=== PATIENT | female | born 1980 | race Two or more races ===

== ENCOUNTER → 2019-12-14 12:48 | Outpatient (BNVA) | payer MEDICAID, SELFPAY | PROVIDERS: PCP Internal Medicine Geriatric Medicine; Referring Provider Internal Medicine Geriatric Medicine; Visit Provider Physician Assistant | DX: E66.9 Obesity, unspecified (principal); Z68.33 Body mass index [BMI] 33.0-33.9, adult; Z98.84 Bariatric surgery status | CPT/HCPCS: 99213; Q3014 ==

== ENCOUNTER → 2020-01-25 13:40 | Outpatient (BNVA) | payer MEDICAID, SELFPAY | PROVIDERS: Visit Provider Physician Assistant | DX: Z76.89 Persons encountering health services in other specified circumstances (principal) ==

== ENCOUNTER → 2020-02-16 08:27 | Outpatient (BNVA) | payer MEDICAID, SELFPAY | PROVIDERS: PCP Internal Medicine Geriatric Medicine; Visit Provider Physician Assistant | DX: Z76.89 Persons encountering health services in other specified circumstances (principal) ==

== ENCOUNTER 2020-04-02 12:50 | Outpatient (REF) | payer MEDICAID, SELFPAY ==
--- NOTE | 2020-04-02 12:56 | XR_ITS ---
EXAMINATION: XR CERVICAL SPINE CLINICAL INFORMATION: Neck pain COMPARISON: None TECHNIQUE: 5 views of the cervical spine were obtained. FINDINGS: Bone alignment is normal. No fracture or dislocation is seen. Disc spaces are normal. Neural foramen are patent. Prevertebral soft tissues are normal. XR/XR cervical spine 4V IMPRESSION: Unremarkable examination.
--- NOTE | 2020-04-02 13:44 | MR_ITS ---
EXAMINATION: MR LUMBAR SPINE WITHOUT AND WITH CONTRAST CLINICAL INFORMATION: Low back pain and sciatica. Prior surgery. COMPARISON: MRI dated 08/31/2017. TECHNIQUE: MRI of the lumbar spine was obtained using routine sequences with and without contrast. Intravenous contrast: Gadavist 8.5 mL FINDINGS: VERTEBRAL BODIES AND PARASPINAL STRUCTURES: There is a mild rightward curvature of the lumbar spine. There are no compression fractures. The patient is status post previous posterior lumbar interbody fusion with hardware instrumentation at the L5-S1 level. Reduced intradiscal signal again evident at the L4-L5 level with a small posterior annular fissure. The paraspinal soft tissues are unremarkable. Bilateral renal cysts again visible. There are moderate degenerative changes of the sacroiliac joints. CONUS MEDULLARIS AND CAUDA EQUINA: Normal, terminating at the level of T12-L1. No lower cord signal abnormality is seen. The cauda equina nerve roots are normal. There is no pathologic intradural enhancement. SPINAL LEVELS: L1-L2, L2-L3, and L3-L4: Well-hydrated normal appearance of the discs without central canal stenosis or foraminal narrowing. L4-L5: Mild disc degeneration and shallow central disc protrusion with an underlying annular fissure. Hypertrophic facet arthropathy without central canal stenosis or foraminal narrowing. L5-S1: Post fusion changes with hardware instrumentation. No central canal stenosis. Stable moderate right foraminal narrowing. MR/MR lumbar spine wo/w con IMPRESSION: Stable imaging findings, status post posterior lumbar interbody fusion with hardware instrumentation at the L5-S1 level with moderate right foraminal narrowing. No new abnormal enhancement. Mild spondylosis at L4-L5 with a shallow central disc protrusion and underlying annular fissure. Moderate degenerative changes of the sacroiliac joints bilaterally, worse on the right side.
== END 2020-04-02 12:51 | disposition home or self-care (01) ==
LOC: HO.MRI 12:50
PROVIDERS: PCP Internal Medicine Geriatric Medicine; Visit Provider Internal Medicine Geriatric Medicine
DX: G89.29 Other chronic pain (principal); M54.16 Radiculopathy, lumbar region; M54.5 Low back pain; Z98.890 Other specified postprocedural states
CPT/HCPCS: 72050; 72158

== ENCOUNTER 2020-05-17 12:58 | Outpatient (REF) | payer MEDICAID, SELFPAY ==
--- NOTE | ~2020-05-17 | US_ITS ---
EXAMINATION: US PELVIS ULTRASOUND CLINICAL INFORMATION: Dysmenorrhea, excessive and frequent menstruation. COMPARISON: Pelvic ultrasound 04/08/2016. TECHNIQUE: Ultrasound of the pelvis is performed using both transabdominal and transvaginal transducers along with Doppler. Transvaginal imaging is performed due to inadequate visualization transabdominally. FINDINGS: Uterus: The uterus is anteverted and measures 12.5 x 4.7 x 6.0 cm. Volume 185 mL. The double wall endometrial thickness is normal at 6 mm. No fluid in uterine cavity. The uterus is smooth in contour. There is subtle heterogeneous and coarsened myometrial echogenicity posterior fundus and body with some scattered posterior shadowing. The area of involvement measures 4.9 x 3.7 x 4.8 cm. The margins are ill-defined and this could represent adenomyosis rather than fibroid. There are some small nabothian cysts in the cervix. Adnexa: Both ovaries are visualized. There is normal color flow to the adnexa. There is no ovarian torsion. There is no pelvic ascites or fluid collection. Right ovary measures 4.5 x 2.3 x 3.2 cm. Left ovary measures 3.1 x 1.9 x 2.5 cm. US/US pelvic complete IMPRESSION: 1. Uterus: Posterior intramural fundal body fibroid versus focal adenomyosis 4.9 x 3.7 x 4.8 cm. Normal endometrial thickness. 2. Adnexa: No adnexal mass or ascites.
--- NOTE | ~2020-05-17 | US_ITS ---
EXAMINATION: US PELVIS ULTRASOUND CLINICAL INFORMATION: Dysmenorrhea, excessive and frequent menstruation. COMPARISON: Pelvic ultrasound 04/08/2016. TECHNIQUE: Ultrasound of the pelvis is performed using both transabdominal and transvaginal transducers along with Doppler. Transvaginal imaging is performed due to inadequate visualization transabdominally. FINDINGS: Uterus: The uterus is anteverted and measures 12.5 x 4.7 x 6.0 cm. Volume 185 mL. The double wall endometrial thickness is normal at 6 mm. No fluid in uterine cavity. The uterus is smooth in contour. There is subtle heterogeneous and coarsened myometrial echogenicity posterior fundus and body with some scattered posterior shadowing. The area of involvement measures 4.9 x 3.7 x 4.8 cm. The margins are ill-defined and this could represent adenomyosis rather than fibroid. There are some small nabothian cysts in the cervix. Adnexa: Both ovaries are visualized. There is normal color flow to the adnexa. There is no ovarian torsion. There is no pelvic ascites or fluid collection. Right ovary measures 4.5 x 2.3 x 3.2 cm. Left ovary measures 3.1 x 1.9 x 2.5 cm. US/US transvaginal IMPRESSION: 1. Uterus: Posterior intramural fundal body fibroid versus focal adenomyosis 4.9 x 3.7 x 4.8 cm. Normal endometrial thickness. 2. Adnexa: No adnexal mass or ascites.
== END 2020-05-17 12:59 | disposition home or self-care (01) ==
LOC: HO.US 12:58
PROVIDERS: Visit Provider Advanced Practice Midwife
DX: N92.0 Excessive and frequent menstruation with regular cycle (principal); N94.6 Dysmenorrhea, unspecified
CPT/HCPCS: 76830; 76856

== ENCOUNTER 2021-09-02 12:07 | Outpatient (REF) | payer MEDICAID, SELFPAY ==
--- NOTE | ~2021-09-02 | XR_ITS ---
EXAMINATION: XR LUMBOSACRAL SPINE CLINICAL INFORMATION: Low back pain COMPARISON: Previous lumbar spine MRI most recent March 2020 TECHNIQUE: 3 views of the lumbar spine FINDINGS: There is curvature of the lumbar sacral spine to the left. There are postsurgical changes with posterior fusion hardware and disc interspace at L5-S1. Orthopedic hardware appears intact. There is question of a bone loss of the posterior inferior L5 vertebral body and mild anterior subluxation of L5 with respect to S1. This appears increased from previous MRI. Bone alignment is otherwise normal. Disc spaces are otherwise normal. Paraspinal soft tissues are normal. XR/XR lumbar spine 2-3V IMPRESSION: Postsurgical changes at L5-S1. Question increasing bone loss of the posterior inferior L5 vertebral body and mild anterior subluxation of L5 with respect to S1. Possible infection at the L5-S1 level should be considered. Follow-up MRI of the lumbar spine with contrast is recommended. Findings will be communicated by the [place] work flow party plan sales director.
== END 2021-09-02 12:08 | disposition home or self-care (01) ==
LOC: HO.XRAY 12:07
PROVIDERS: PCP Internal Medicine Geriatric Medicine; Visit Provider Internal Medicine Geriatric Medicine
DX: M54.41 Lumbago with sciatica, right side (principal); G89.29 Other chronic pain; Z98.1 Arthrodesis status
CPT/HCPCS: 72100

== ENCOUNTER 2021-09-17 10:52 | Outpatient (REF) | payer MEDICAID, SELFPAY | END 2021-09-17 10:53 | disposition home or self-care (01) | LOC: HO.MDS 10:52 | PROVIDERS: Visit Provider Internal Medicine Medical Oncology | DX: D50.9 Iron deficiency anemia, unspecified (principal) | CPT/HCPCS: 96365; J2916 ==

== ENCOUNTER 2021-09-24 11:51 | Outpatient (REF) | payer MEDICAID, SELFPAY | END 2021-09-24 11:52 | disposition home or self-care (01) | LOC: HO.MDS 11:51 | PROVIDERS: Visit Provider Internal Medicine Medical Oncology | DX: D50.9 Iron deficiency anemia, unspecified (principal) | CPT/HCPCS: 96365; J2916 ==

== ENCOUNTER → 2021-09-30 13:52 | Outpatient (BNVA) | payer MEDICAID, SELFPAY | PROVIDERS: PCP Internal Medicine Geriatric Medicine; Visit Provider Anesthesiology | DX: M96.1 Postlaminectomy syndrome, not elsewhere classified (principal); M51.36 Other intervertebral disc degeneration, lumbar region; M54.17 Radiculopathy, lumbosacral region | CPT/HCPCS: 99202 ==

== ENCOUNTER 2021-10-04 11:58 | Outpatient (REF) | payer MEDICAID, SELFPAY | END 2021-10-04 11:59 | disposition home or self-care (01) | LOC: HO.MDS 11:58 | PROVIDERS: Visit Provider Internal Medicine Medical Oncology | DX: D50.9 Iron deficiency anemia, unspecified (principal) | CPT/HCPCS: 96365; J2916 ==

== ENCOUNTER 2021-10-07 11:21 | Outpatient (REF) | payer MEDICAID, SELFPAY | END 2021-10-07 11:22 | disposition home or self-care (01) | LOC: HO.MDS 11:21 | PROVIDERS: Visit Provider Internal Medicine Medical Oncology | DX: D50.9 Iron deficiency anemia, unspecified (principal) | CPT/HCPCS: 96365; J2916 ==

== ENCOUNTER 2021-10-16 11:24 | Outpatient (REF) | payer MEDICAID, SELFPAY | END 2021-10-16 11:25 | disposition home or self-care (01) | LOC: HO.MDS 11:24 | PROVIDERS: Visit Provider Internal Medicine Medical Oncology | DX: D50.9 Iron deficiency anemia, unspecified (principal) | CPT/HCPCS: 96365; J2916 ==

== ENCOUNTER 2021-10-17 12:36 | Outpatient (REF) | payer MEDICAID, SELFPAY ==
--- NOTE | ~2021-10-17 | US_ITS ---
EXAMINATION: US PELVIS CLINICAL INFORMATION: Excessive and frequent menses; the last menstrual period is not specified. COMPARISON: Pelvic ultrasound dated 05/17/2020. TECHNIQUE: Ultrasound of the pelvis is performed using both transabdominal and transvaginal transducers along with Doppler. Transvaginal imaging is performed due to inadequate visualization transabdominally. FINDINGS: Uterus: The uterus is anteverted and measures 10.5 x 5.8 x 6.2 cm. The uterus is anteverted. The double wall endometrial thickness is 1.1 mm. FIBROIDS: There is 1 fibroid seen. 1. Location: Posterior body, myometrial. Size: 5.2 x 3.5 x 5.4 cm. Fibroid characteristics: Heterogeneous echotexture. The uterus is smooth in contour and has normal myometrial echogenicity. No visible fibroid. Adnexa: Both ovaries are visualized. There is normal color flow to the adnexa. There is no ovarian torsion. There is no pelvic ascites or fluid collection. Right ovary measures 3.7 x 2.5 x 2.9 cm (volume 13.9 mL). A 2.1 x 1.9 x 2.3 cm simple right ovarian cyst is seen. Left ovary measures 2.5 x 2.3 x 2.8 cm (volume 11.4 mL). US/US pelvic and transvaginal IMPRESSION: 1. A uterine fibroid is redemonstrated, with current dimensions as detailed. 2. A 2.3 cm maximal diameter benign, simple right ovarian cyst is seen. No ultrasound follow-up is recommended.
== END 2021-10-17 12:37 | disposition home or self-care (01) ==
LOC: HO.HMGCX 12:36
PROVIDERS: PCP Internal Medicine Geriatric Medicine; Visit Provider Advanced Practice Midwife
DX: N92.0 Excessive and frequent menstruation with regular cycle (principal)
CPT/HCPCS: 76830; 76856

== ENCOUNTER 2021-10-22 10:42 | Outpatient (REF) | payer MEDICAID, SELFPAY | END 2021-10-22 10:43 | disposition home or self-care (01) | LOC: HO.MDS 10:42 | PROVIDERS: Visit Provider Internal Medicine Medical Oncology | DX: D50.9 Iron deficiency anemia, unspecified (principal) | CPT/HCPCS: 96365; J2916 ==

== ENCOUNTER 2021-10-30 10:47 | Outpatient (REF) | payer MEDICAID, SELFPAY | END 2021-10-30 10:48 | disposition home or self-care (01) | LOC: HO.MDS 10:47 | PROVIDERS: Visit Provider Internal Medicine Medical Oncology | DX: D50.9 Iron deficiency anemia, unspecified (principal) | CPT/HCPCS: 96365 ==

== ENCOUNTER 2021-11-01 11:26 | Outpatient (REF) | payer MEDICAID, SELFPAY | END 2021-11-01 11:27 | disposition home or self-care (01) | LOC: HO.MDS 11:26 | PROVIDERS: Visit Provider Internal Medicine Medical Oncology | DX: D50.9 Iron deficiency anemia, unspecified (principal) ==

== ENCOUNTER 2021-11-01 12:16 | Day surgery (SDC) | payer MEDICAID, SELFPAY ==
--- NOTE | ~2021-11-01 | FL_ITS ---
EXAMINATION: XR FLUOROSCOPY WITH IMAGES CLINICAL INFORMATION: Caudal epidural COMPARISON: Radiographs lumbar spine 09/02/2021 TECHNIQUE: Fluoroscopy performed by Dr. Vinicius Jeter. Fluoroscopy time: 0.2 minutes. Cumulative Dose: 522 mGy. DAP: 1.25 Gy-cm2. Images: 3. FINDINGS: There is a needle/catheter at the lower sacral hiatus. Contrast is present in the epidural space. There are postsurgical changes with fusion hardware again seen overlying lumbosacral junction. FL/FL guidance in OR IMPRESSION: Fluoroscopy for pain management procedure.
[2021-11-01 07:11] VITALS: BMI 36.3
[2021-11-01 12:20] VITALS: BP 155/93; PULSE 81; RESP 17; TEMP 36.3; O2SAT 98
[2021-11-01] MEDS: Lactated Ringers 1,000 ML 100 ML IVCONT (12:38)
--- NOTE | 2021-11-01 13:42 | P.BOP_ITS ---
Brief Operative Note Date of Service: 11/01/21 Pre-op diagnosis: Postlaminectomy syndrome Post-op diagnosis: same Procedure: Caudal epidural steroid injection with catheter Implants: as above Surgeon: Vinicius Jeter MD Anesthesia: GETA Was an Telecom Analyst used for this Procedure?: No Estimated blood loss (mL): 0 Pathology: none sent Condition: stable Disposition: PACU
--- NOTE | 2021-11-01 13:43 | MHC.SHP ---
Pre-Procedural Eval Section A Date of Service: 11/01/21 Section B Chief Complaint: Postlaminectomy syndrome, Details of Present Illness: As above Relevant Family History (Specify if Yes): No Relevant Social History: None Present Medications: see Short Stay Collaborative assessment Medical History: No relevant PMH History of Previous Operations: Relevant previous surgery/procedure and date(s) Allergies: Allergies Allergy/AdvReac Type Severity Reaction Status Date / Time penicillin V Allergy Unknown edema Verified 09/30/21 14:31 Penicillins [PENICILLINS] Allergy Unknown SWELLING Verified 11/01/21 12:38 Review of Systems Sugical H&P ROS: Negative: Constitution, Cardiovascular, Respiratory, Neurological, Psychiatric, Hem-Onc, Allergic/Immunologic, Gastrointestinal, Genitourinary, Integumentary, Endocrine and Eyes/Ears/Nose/Throat and Yes, Specify: Musculoskeletal (Postlaminectomy syndrome) Exam Surgical H&P Exam: Normal: HEENT, Normal: Heart, Normal: Lungs, Normal: Extremities, Normal: Abdomen, Normal: Skin and Normal: Neurological Plan Diagnosis/Plan: Unchanged I have reviewed the history and physical and performed a pertinent physical examination on my patient. No changes have occurred unless specified.
--- NOTE | 2021-11-01 13:47 | P.OP_ITS ---
Operative Note Operative Note Date of Service: 11/01/21 Narrative: CAUDAL EPIDURAL STEROID INJECTION WITH CATHETER. Informed consent was explained to the patient. All questions were explained and answered.? The patient was taken inside of the operating room where she was positioned prone on the operating table. ASA monitors were applied and patient was moderately sedated. ? Time-out was performed delineating patient's name and date of , correct site, side, the nature of the procedure, patient's allergy, preoperative antibiotic if needed.? All operating room staff AND THE PATIENT was participating in OR time-out procedure.? ? ? Her lower back? UPPER BUTTOCKS and intergluteal crease were prepped with ChloraPrep and draped with sterile towels.? Sterilely draped C-arm was brought over the operating field and? the picture of the sacral bone and the coccygeal spine superimposing on symphysis pubis in strict midline fashion was demonstrated on the screen.? After that the position of the C-arm was changed into lateral.? The skin wheal was raised in the projection of the lowest point of the sacral bone strictly on midline.? 18 gauge 10 cm Touhy needle was inserted through the skin wheal and advanced toward the caudal canal in anterior posterior and lateral views.? When needle entered the caudal canal injection of the contrast was performed demonstrating epidural spread of the contrast.? After that epidural catheter was advanced through the needle until the resistance was felt approximately at 20 cm. The injections of the contrast into the epidural catheter demonstrated spread of the contrast in the projection of the lumbar spine intervertebral space L5- S1 . After that the 30 cc of normal saline preservative-free was injected into the catheter. Following this lidocaine 1% PF 4 mL mixed with Kenalog 40 mg was injected into the catheter.. After that the catheter was removed with the needle en mass. The tip of the catheter was intact.? Sterile dressing with bacitracin ointment was applied to the needle stick site. The patient was taken outside of the operating room to the recovery room.? The patient recovered uneventfully.?
--- NOTE | 2021-11-01 14:29 | HO.ANESPROP2 ---
[facility] Active Problems Active Problems: All Active Problems (Updated 09/30/21 @ 15:02 by Vinicius Jeter MD) Radiculopathy, lumbosacral region (Acute) Disc degeneration, lumbar (Acute) Postlaminectomy syndrome (Acute) Anemia (Acute) S/P laparoscopic sleeve gastrectomy (Acute) Obesity (Acute) Back pain (Acute) Migraines, neuralgic (Acute) Past Medical History Medical History (Updated 09/30/21 @ 15:02 by Vinicius Jeter MD) Back pain Gastritis Migraines, neuralgic Obesity Functional capacity: wheelchair bound Family History Family History (Updated 09/02/21 @ 13:11 by Reyna Bales CMA) Father History of stomach ulcers Mother Fibromyalgia History of hypothyroidism Hypotension Brother No problems noted. Sister Chronic migraine Panic attacks Son No problems noted. Daughter No problems noted. Daughter No problems noted. Maternal Uncle Cancer Family history of problems with anesthesia: No Surgical History Surgical History History of bilateral tubal ligation Hx of tonsillectomy Previous back surgery Previous section S/P laparoscopic sleeve gastrectomy History of Problems with Anesthesia: No Social History Social History (Updated 09/02/21 @ 13:12 by Reyna Bales CMA) Household Members: Children Housing: House Are you a primary aged or disabled care worker to a significant other at home: No Do you presently have visiting nurse or other home services: No Alcohol intake: never Patient Tobacco Use Status: Never used Tobacco Are you DNR?: No Advance Directives: No Advance Directives Information Provided: Yes Recently lost weight without trying: No Nutrition Risks: No Nutritional Risk Patient : No FDLMP: today service: No Current occupational status: employed Meds Allergies Allergy/AdvReac Type Severity Reaction Status Date / Time penicillin V Allergy Unknown edema Verified 09/30/21 14:31 Penicillins [PENICILLINS] Allergy Unknown SWELLING Verified 11/01/21 12:38 Active Medications: Current Medications Lactated Ringer's (Lr) 1,000 mls @ 100 mls/hr IVCONT .Q10H MAX Last Admin: 11/01/21 12:38 Dose: 100 mls/hr Ondansetron HCl (Ondansetron Hcl 4 Mg/2 Ml Vial) 4 mg IVPUSH ONCE PRN PRN Reason: Nausea and Vomiting Home Medications Medication Instructions Recorded Confirmed Last Taken Type biotin 10 mg tablet 10 mg PO DAILY 12/14/19 11/01/21 Unknown History calcium citrate 315 mg-vitamin D3 1 tab PO DAILY 12/14/19 11/01/21 Unknown History 5 mcg (200 unit) tablet (Calcium Citrate + D) gabapentin 100 mg capsule 100 mg PO BID 12/14/19 11/01/21 Unknown History iron,carbonyl 65 mg-vitamin C 125 1 tab PO DAILY 12/14/19 11/01/21 Unknown History mg tablet,delayed release (Vitron-C) omeprazole 40 mg capsule,delayed 40 mg PO DAILY 12/14/19 11/01/21 Unknown History release oxycodone-acetaminophen 5 mg-325 1 tab PO Q6H PRN Pain 12/14/19 11/01/21 Unknown History mg tablet (Percocet) thiamine HCl (vitamin B1) 100 mg 50 mg PO DAILY 12/14/19 11/01/21 Unknown History tablet tizanidine 2 mg capsule 2 mg PO TID PRN Muscle Spasm 12/14/19 11/01/21 Unknown History triamcinolone acetonide 0.1 % 1 applic topical BID 12/14/19 11/01/21 Unknown History topical cream phentermine 15 mg capsule 15 mg PO DAILY 09/30/21 11/01/21 Unknown History Exam Exam Date and Time: November 01, 2021 1429 Height,Weight and Vital Signs: Height 5 ft 2 in Weight 90.265 kg Last Vital Signs Temp 97.3 F 11/01/21 12:20 Pulse 81 11/01/21 12:20 Resp 17 11/01/21 12:20 BP 155/93 H 11/01/21 12:20 Pulse Ox 98 11/01/21 12:20 O2 Del Method 11/01/21 12:20 Airway Mallampati Class: II TM Dist: >3cm Neck ROM: Full Loose/Missing/Broken Teeth: No (Rr) Heart: rrr Lungs: clear Assessment and Plan Final Anesthetic Review Family History of Problems with Anesthesia: No History of Problems with Anesthesia: No NPO: Yes ASA Class: II Final Preanesthetic Review: No Changes in Pt Med Stat, Meds/Allgs Chart Reviewed, Consent Obtained/Reviewed and Anes Risks/Benef Reviewed Patient Risk: Intermediate Procedure Risk: Low Anesthetic Plan Anesthetic Plan: MAC: Disposition: Standard PACU
[2021-11-01 15:08] VITALS: BP 93/50; PULSE 72; RESP 15; TEMP 36.9; O2SAT 96
[2021-11-01 15:23] VITALS: BP 110/62; PULSE 59; RESP 14; O2SAT 99
[2021-11-01 15:38] VITALS: BP 118/66; PULSE 79; RESP 15; O2SAT 99
== END 2021-11-01 16:00 | disposition home or self-care (01) ==
PROVIDERS: PCP Internal Medicine Geriatric Medicine; Visit Provider Anesthesiology
PROC: 3E0R3GC Introduction of Other Therapeutic Substance into Spinal Canal, Percutaneous Approach (ICD-10-PCS; CPT 62322; principal; 2021-11-01 13:50)
DX: M96.1 Postlaminectomy syndrome, not elsewhere classified (principal); M51.36 Other intervertebral disc degeneration, lumbar region; M54.17 Radiculopathy, lumbosacral region; M54.50 Low back pain, unspecified; Z98.1 Arthrodesis status; G43.809 Other migraine, not intractable, without status migrainosus; Z79.899 Other long term (current) drug therapy; Z88.0 Allergy status to penicillin; Z98.84 Bariatric surgery status
CPT/HCPCS: 62323; J2250; J3010; J3300; Q9965

== ENCOUNTER 2022-11-11 17:49 | Outpatient (REF) | payer MEDICAID, SELFPAY ==
[2022-11-18 08:29] LABS: Codeine, Ur NEGATIVE
[2022-11-18 08:30] LABS: Hydrocodone, Ur NEGATIVE; Hydromorphone, Ur NEGATIVE; Morphine, Ur NEGATIVE; Norhydrocodone, Ur NEGATIVE; Noroxycodone, Ur NEGATIVE; Oxycodone, Ur NEGATIVE; Oxymorphone, Ur NEGATIVE
== END 2022-11-11 17:50 | disposition home or self-care (01) ==
LOC: HO.HHCLNP 17:49
PROVIDERS: Visit Provider Internal Medicine Geriatric Medicine
DX: M54.50 Low back pain, unspecified (principal); G89.29 Other chronic pain
CPT/HCPCS: 80364; 80365

== ENCOUNTER 2023-04-10 08:10 | Outpatient (REF) | payer MEDICAID, SELFPAY ==
[2023-04-10 11:35] LABS: MANUAL DIFF FLAG NO
[2023-04-10 11:51] LABS: Basophils Absolute Auto 0.1 X10*3/uL (0.0-0.2); Basophils Percent Auto 0.9 % (0-2); Eosinophils Absolute Auto 0.2 X10*3/uL (0.0-0.4); Eosinophils Percent Auto 3.5 % (0-4); Hemoglobin 13.3 g/dl (12.0-16.0); Imm Gran Abs Auto 0.02 X10*3/uL (0.00-0.03); Imm Gran Pct Auto 0.3 % (0.0-0.4); Lymphocytes Absolute Auto 1.6 X10*3/uL (1.2-4.9); Lymphocytes Percent Auto 25.2 % (20-40); Mean Corpuscular HGB Conc 31.7 g/dl (31.0-35.0); Mean Corpuscular Hemoglobin 27.8 pg (27.0-33.0); Mean Corpuscular Volume 87.7 fL (80.0-98.0); Mean Platelet Volume 11.9 fL (9.4-12.3); Monocytes Absolute Auto 0.5 X10*3/uL (0.1-1.2); Monocytes Percent Auto 7.6 % (2-11); Neutrophils Percent Auto 62.5 % (45-73); Platelet Count 265 X10*3/uL (160-400); Red Blood Count 4.79 X10*6/uL (4.20-5.50); White Blood Count 6.3 X10*3/uL (4.8-10.8)
[2023-04-10 12:24] LABS: Alanine Aminotransferase 26 U/L (0-31); Alkaline Phosphatase 71 U/L (39-117); Anion Gap 11 (12-20); Aspartate Amino Transferase 19 U/L (5-31); Bilirubin Total 0.4 mg/dL (0.0-1.0); Blood Urea Nitrogen 11 mg/dL (9-16); Calcium 9.1 mg/dL (8.4-10.2); Carbon Dioxide 24 mmol/L (22-29); Chloride 107 mmol/L (96-108); Estimated Glomerular Filt Rate > 60; Glucose Random 97 mg/dL (60-115); Potassium 4.1 mmol/L (3.3-5.1); Sodium 138 mmol/L (135-145); Total Protein 6.9 g/dL (6.5-8.0)
[2023-04-10 12:35] LABS: Erythrocyte Sedimentation Rate 5 MM/HR (0-20)
[2023-04-10 18:20] LABS: Rheumatoid Factor < 13.0 IU/mL (<15.0)
== END 2023-04-10 08:11 | disposition home or self-care (01) ==
LOC: HO.HHCL 08:10
PROVIDERS: Visit Provider Internal Medicine Geriatric Medicine
DX: R10.12 Left upper quadrant pain (principal); M79.641 Pain in right hand; M79.642 Pain in left hand
CPT/HCPCS: 36415; 80053; 85025; 85652; 86431

== ENCOUNTER 2023-04-16 07:34 | Outpatient (REF) | payer MEDICAID, SELFPAY ==
--- NOTE | ~2023-04-16 | US_ITS ---
EXAMINATION: US ABDOMEN COMPLETE CLINICAL INFORMATION: 6 month of recurrent left upper quadrant abdominal pain. COMPARISON: Ultrasound abdomen complete 04/08/2016. TECHNIQUE: Real-time imaging of the abdominal viscera. FINDINGS: PANCREAS: Normal. ABDOMINAL AORTA: The proximal and distal segments are nonaneurysmal. The mid segment is obscured by overlapping bowel gas. INFERIOR VENA CAVA: Visualized portions are normal. LIVER: The liver is normal in size. The liver contour is normal. There is diffuse increased liver parenchymal echogenicity. No focal hepatic lesion. There is no intrahepatic biliary duct dilatation seen. GALLBLADDER: Normal. The gallbladder is physiologically distended without evidence of stones, sludge, polyps, wall thickening or pericholecystic fluid. COMMON BILE DUCT: Normal in caliber measuring 0.4 cm in diameter. RIGHT KIDNEY: At the interpolar aspect, a 2.3 cm benign, simple cyst is seen, for which no imaging follow-up is recommended. No hydronephrosis or focal parenchymal lesions. The kidney measures 12.3 cm in maximum dimension. LEFT KIDNEY: At the interpolar aspect, a 3 mm nonobstructing calculus is seen, with twinkle artifact. No hydronephrosis. No renal calculi or focal parenchymal lesions. The kidney measures 11.3 cm in maximum dimension. SPLEEN: Normal. The spleen measures 9.7 cm in maximum dimension. FREE FLUID: None. US/US abdomen complete IMPRESSION: 1. There is generalized increase in hepatic echotexture, consistent with fatty infiltration or hepatocellular disease. Please correlate clinically. No focal hepatic mass or intrahepatic biliary dilatation is seen. 2. A 3 mm nonobstructing left renal calculus is seen. 3. Technically limited ultrasound examination of the abdominal great vessels.
--- NOTE | ~2023-04-16 | XR_ITS ---
EXAMINATION: Bilateral hand x-ray CLINICAL INFORMATION: Pain COMPARISON: None. TECHNIQUE: 3 views of each hand FINDINGS: Bone alignment is normal. No fracture or dislocation. Normal joint spaces. Normal soft tissues. XR/XR hand LT min 3V IMPRESSION: Normal hands.
--- NOTE | ~2023-04-16 | XR_ITS ---
EXAMINATION: Bilateral hand x-ray CLINICAL INFORMATION: Pain COMPARISON: None. TECHNIQUE: 3 views of each hand FINDINGS: Bone alignment is normal. No fracture or dislocation. Normal joint spaces. Normal soft tissues. XR/XR hand RT min 3V IMPRESSION: Normal hands.
== END 2023-04-16 07:35 | disposition home or self-care (01) ==
LOC: HO.US 07:34
PROVIDERS: PCP Internal Medicine Geriatric Medicine; Visit Provider Internal Medicine Geriatric Medicine
DX: R10.12 Left upper quadrant pain (principal); M79.642 Pain in left hand; M79.641 Pain in right hand
CPT/HCPCS: 73130; 76700

== ENCOUNTER 2023-04-18 07:33 | Outpatient (REF) | payer MEDICAID, SELFPAY ==
--- NOTE | ~2023-04-18 | MM_ITS ---
EXAMINATION: MM SCREENING DIGITAL BREAST TOMOSYNTHESIS, BILATERAL CLINICAL INFORMATION: Screening. Asymptomatic. COMPARISON: Mammography: This study is compared with the most recent mammogram dating back to 2017. TECHNIQUE: Digital breast tomosynthesis is performed in both the craniocaudal and mediolateral oblique views along with computer-aided detection (CAD). Synthesized 2D images are generated from the tomosynthesis. FINDINGS: The breasts are almost entirely fatty (ACR BI-RADS breast composition Category a). There are no significant masses, abnormal calcifications, or other abnormalities. MM/MM tomosynthesis screening BI IMPRESSION: No mammographic evidence of malignancy. ASSESSMENT: BI-RADS BI-RADS 1 - Negative RECOMMENDATION: Routine annual mammography screening. 1 year F/U This examination should not preclude the clinical evaluation of a suspicious palpable abnormality. This patient's information was entered into a reminder system with a target due date for their next mammogram.
== END 2023-04-18 07:34 | disposition home or self-care (01) ==
LOC: HO.MAMMO 07:33
PROVIDERS: PCP Internal Medicine Geriatric Medicine; Visit Provider Internal Medicine Geriatric Medicine
DX: Z12.31 Encounter for screening mammogram for malignant neoplasm of breast (principal)
CPT/HCPCS: 77063; 77067

== ENCOUNTER → 2023-04-18 08:15 | Outpatient (BNV) | payer MEDICAID, SELFPAY | PROVIDERS: PCP Internal Medicine Geriatric Medicine; Visit Provider Radiology Diagnostic Radiology | DX: Z12.31 Encounter for screening mammogram for malignant neoplasm of breast (principal) | CPT/HCPCS: 77063; 77067 ==

== ENCOUNTER 2023-10-12 17:36 | Outpatient (REF) | payer MEDICAID, SELFPAY ==
[2023-10-12 18:17] LABS: Appearance Urine Clear; Color Urine Yellow; Glucose Urine UA Negative (Negative); Leukocyte Esterase Urine Large (3+) (Negative); Nitrite Urine Negative (Negative); PH 6.5 (5.0-9.0); Specific Gravity - Urine 1.015 (1.005-1.025); UMIC TRIGGER UACC YES; Urine Blood Large (3+) (Negative); Urine Ketones Negative (Negative); Urine Protein Trace mg/dL (Neg-Trace)
[2023-10-12 18:22] LABS: Bacteria Urine 1+ (None Seen); Hyaline Casts Urine 0-2 /LPF (0-2); RBC Urine >20 /HPF (0-2); Squamous Epithelial Cell Urine 0-2 /HPF (0-2); UACC Culture Trigger YES; WBC Urine >50 /HPF (0-5)
== END 2023-10-12 17:37 | disposition home or self-care (01) ==
LOC: HO.HHCLNP 17:36
PROVIDERS: Visit Provider Internal Medicine Geriatric Medicine
DX: R30.0 Dysuria (principal)
CPT/HCPCS: 81001; 87086

== ENCOUNTER 2023-10-15 16:04 | Outpatient (REF) | payer MEDICAID, SELFPAY ==
[2023-10-16 19:58] LABS: C. trachomatis RNA TMA NOT DETECTED (NOT DETECTED); N. gonorrhoeae RNA TMA NOT DETECTED (NOT DETECTED)
[2023-10-16 20:49] LABS: Trichomonas (NAAT) NOT DETECTED (NOT DETECTED)
[2023-10-19 11:43] LABS: HPV mRNA E6/E7 Not Detected (Not Detected)
== END 2023-10-15 16:05 | disposition home or self-care (01) ==
LOC: HO.HHCLNP 16:04
PROVIDERS: Visit Provider Advanced Practice Midwife
DX: N93.9 Abnormal uterine and vaginal bleeding, unspecified (principal); Z12.4 Encounter for screening for malignant neoplasm of cervix
CPT/HCPCS: 36415; 87491; 87591; 87624; 87661; 88175

== ENCOUNTER 2023-10-21 15:47 | Outpatient (REF) | payer MEDICAID, SELFPAY ==
--- NOTE | ~2023-10-21 | US_ITS ---
EXAMINATION: US PELVIS CLINICAL INFORMATION: Abnormal uterine bleeding. Check IUD placement. COMPARISON: 10/17/2021 TECHNIQUE: Ultrasound of the pelvis is performed using both transabdominal and transvaginal transducers along with Doppler. Transvaginal imaging is performed due to inadequate visualization transabdominally. FINDINGS: Uterus: The uterus is anteverted. The uterus measures 13.4 x 5.7 x 5.9 cm. Uterine echotexture is heterogeneous. The endometrial stripe measures approximately 4 mm in thickness. There is trace fluid in the endometrial cavity. There is focal displacement of the endometrial cavity anteriorly by a masslike lesion measuring 3.8 x 3.3 x 3.9 cm. The intrauterine device is low lying in position at the endocervical canal. Adnexa: The right ovary measures 3.0 x 2.7 x 2.9 cm for a volume of 12.3 mL. The left ovary measures 3.4 x 1.7 x 1.9 cm for a volume of 5.8 mL. No significant free fluid in the cul-de-sac. US/US pelvic and transvaginal IMPRESSION: Low-lying intrauterine device. Masslike lesion measuring 3.8 x 3.2 x 3.9 cm causing anterior displacement of the endometrium. This may represent a fibroid with submucosal component vs. adenomyosis. Consider MRI pelvis for further characterization.
== END 2023-10-21 15:48 | disposition home or self-care (01) ==
LOC: HO.US 15:47
PROVIDERS: PCP Internal Medicine Geriatric Medicine; Visit Provider Advanced Practice Midwife
DX: Z30.431 Encounter for routine checking of intrauterine contraceptive device (principal); N93.9 Abnormal uterine and vaginal bleeding, unspecified
CPT/HCPCS: 76830; 76856

== ENCOUNTER 2023-10-27 14:50 | Outpatient (REF) | payer MEDICAID, SELFPAY ==
[2023-10-27 16:32] LABS: Blood Urea Nitrogen 11 mg/dL (9-16); Estimated Glomerular Filt Rate > 60
== END 2023-10-27 14:51 | disposition home or self-care (01) ==
LOC: HO.HHCL 14:50
PROVIDERS: Visit Provider Advanced Practice Midwife
DX: Z01.812 Encounter for preprocedural laboratory examination (principal)
CPT/HCPCS: 36415; 82565; 84520

== ENCOUNTER 2024-04-22 11:00 | Outpatient (REF) | payer MEDICAID, SELFPAY ==
--- OUTSIDE RECORDS SUMMARY | 2024-04-22 11:57 | XMS_ITS | Encounter Summary ---
Author Organization [employer] Address [address] [facility] 7t [place] [address] Care Team Providers Care Ibm Websphere Commerce Consultant Name Role Phone Name, Isaías CALVERT Primary Care Provider [phone] Reason for Visit * Reason Onset Date Comments Med Refill 03/24/2024 Encounter Details Date Type Department Care Team (Late st Contact Info) Description 03/24/2024 Refill [facility] [address] [place], [place] [phone] Smiley Bustillos, JUDY [address] [place] [address] Pain in both hands Social History Tobacco Use Types Packs/Day Years Used Date Smoking Tobacco: Never Smokeless Tobacco: Never Alcohol Use Standard Drinks/Week Comments Never 0 (1 standard drink = 0.6 oz pur e alcohol) Alcohol Answer Date Recorded Frequency of Alcohol Consumption Not on file 10/12/2023 Average Number of Drinks Not on file 024 Frequency of Binge Drinking Not on file 07/2023 Score 0 10/12/2023 Depression Answer Date Recorded Patient Health Questionnaire-9 Score 0 06/09/2023 Patient Health Questionnaire-9 Score 0 06/09/2023 Last PHQ-9: Questionnaire Data Not on file 0 06/09/2023 Housing Stability Answer Date Recorded What is your housing situation today? I have светлана isabel 06/09/[address] you li ve. Do you have problems with any of the following? None of the above 06/09/2023 Food Insecurity Answer Date Recorded Within the past 12 months, y ou worried that your food would run out before you got money to buy more: Never True 06/09/2023 Within the past 12 months,th e food you bought just didn't last and you didn't have enough money to get more: Never True 04/2023 Transportation Answer Date Recorded In the past 12 months, has l ack of transportation kept you from medical appts, meetings, work or from getting things needed for daily living? No 06/09/2023 Utilities Answer Date Recorded In the past 12 months, has t he electric, gas, oil or water company threatened to shut off services in your home? No 06/09/2023 Depression Answer Date Recorded Patient Health Questionnaire-2 Score 0 06/09/2023 Comments No Sex and Gender Information Value Date Recorded Sex Assigned at Female 01/06/2022 10:30 AM EDT Legal Sex Female 10:30 AM EDT Gender Identity Female 01/06/2022 10:30 AM EDT Sexual Orientation Straight 01/06/2022 10 :30 AM EDT documented as of this encounter Plan of Treatment Upcoming Encounters Date Type Department Care Team (Late st Contact Info) Description 05/17/2024 3:30 PM EDT Office Visit [facility] [address] [place] [phone] Name, MD Isaías [address] [place] [address] 05/31/2024 11:00 AM EDT Office Visit [address] [address] documented as of this encounter Goals Goal Patient Goal Type Associated Problems Recent Progress Patient-Stated? Author Help patient manage chronic opioid therapy Care Plan Patient in chronic opioid therapy No Peggy Manzano, RN Improve Sleep Habits Care Plan Patient in chronic opioid therapy No Peggy Manzano, RN documented as of this encounter Visit Diagnoses Diagnosis Pain in both hands documented in this encounter Additional Health Concerns Active Problems Noted Date Diagnosed Date Patient in chronic opioid therapy 05/29/2022 Assessment Noted Time PHQ-9 Depression Total Score: 0 06/09/19 24 1:30 PM EDT documented as of this encounter Care Teams Ibm Websphere Commerce Consultant Relationship Specialty Start Date End Date NameIsaías MD [address] [place] [phone] PCP - General Family Medicine 03/09/18 documented as of this encounter
--- OUTSIDE RECORDS SUMMARY | 2024-04-22 11:57 | XMS_ITS | Encounter Summary ---
Author Organization [employer] Address [address] [facility] 7t [place] [address] Care Team Providers Care Carpet Mechanic Name Role Phone Name, Isaías CALVERT Primary Care Provider [phone] Reason for Visit * Reason Onset Date Comments Med Refill 03/17/2024 Encounter Details Date Type Department Care Team (Late st Contact Info) Description 03/17/2024 Refill [facility] [address] [place], [place] [phone] Name, MD Isaías [address] [place] [address] Social History Tobacco Use Types Packs/Day Years [...] Description 05/17/2024 3:30 PM EDT Office Visit [address] [address] NameIsaías MD [address] [place] [address] 05/31/2024 11:00 AM EDT Office Visit [address] [address] documented as of this encounter Goals Goal Patient Goal Type Associated Problems Recent Progress Patient-Stated? Author Help patient manage chronic opioid therapy Care Plan Patient in chronic opioid therapy No Peggy Manzano, RN Improve Sleep Habits Care Plan Patient in chronic opioid therapy No Peggy Manzano, RN documented as of this encounter Visit Diagnoses Not on filedocumented in this encounter Additional Health Concerns Active Problems Noted Date Diagnosed Date Patient in chronic opioid therapy 05/29/2022 Assessment Noted Time PHQ-9 Depression Total Score: 0 06/09/19 24 1:30 PM EDT documented as of this encounter Care Teams Carpet Mechanic Relationship Specialty Start Date End Date NameIsaías MD [address] [place] [phone] PCP - General Family Medicine 03/09/18 documented as of this encounter
--- OUTSIDE RECORDS SUMMARY | 2024-04-22 11:57 | XMS_ITS | Encounter Summary ---
Author Organization [facility] Address [address] [facility] 7t [place] [address] Care Team Providers Care Landscaper Name Role Phone Name, Isaías CALVERT Primary Care Provider Reason for Visit * Reason Onset Date Comments Med Refill 09/24/2023 Encounter Details Date Type Department Care Team (Late st Contact Info) Description 09/24/2023 Refill [facility] [address] [place] [address] Name, MD Isaías [address] [place] [address] Chronic low back pain, unspecified back pain laterality, unspecified whether sciatica present Social History Tobacco Use Types Packs/Day Years Used Date Smoking Tobacco: Never Smokeless Tobacco: Never Alcohol Use Standard Drinks/Week Comments Never 0 (1 standard drink = 0.6 oz pur e alcohol) Depression Answer Date Recorded Patient Health Questionnaire-9 [...] Patient Health Questionnaire-2 Score 0 06/09/2023 Comments Unknown Sex and Gender Information Value Date Recorded Sex Assigned at Female 01/06/2022 10:30 AM EDT Legal Sex Female 10:30 AM EDT Gender Identity Female 01/06/2022 10:30 AM EDT Sexual Orientation Straight 01/06/2022 10 :30 AM EDT documented as of this encounter Plan of Treatment Upcoming Encounters Date Type Department Care Team (Late st Contact Info) Description 05/17/2024 3:30 PM EDT Office Visit [address] [address] NameIsaías MD [address] [place] [address] 05/31/2024 11:00 AM EDT Office Visit [address] [address] documented as of this encounter Goals Goal Patient Goal Type Associated Problems Recent Progress Patient-Stated? Author Help patient manage chronic opioid therapy Care Plan Patient in chronic opioid therapy No Peggy Manzano RN Improve Sleep Habits Care Plan Patient in chronic opioid therapy No Peggy Manzano RN documented as of this encounter Visit Diagnoses Diagnosis Chronic low back pain, unspecified back pain laterality, unspecified whether sciatica present documented in this encounter Additional Health Concerns Active Problems Noted Date Diagnosed Date Patient in chronic opioid therapy 05/29/2022 Assessment Noted Time PHQ-9 Depression Total Score: 0 06/09/19 24 1:30 PM EDT documented as of this encounter Care Teams Landscaper Relationship Specialty Start Date End Date Isaías White MD [address] [place] [phone] PCP - General Family Medicine 03/09/18 documented as of this encounter
--- OUTSIDE RECORDS SUMMARY | 2024-04-22 11:57 | XMS_ITS | Encounter Summary ---
Author Organization [employer] [facility] Address [address] [facility] 7t [place] [address] Care Team Providers Care Director Global Market Research Name Role Phone Name, Isaías CALVERT Primary Care Provider [phone] Reason for Visit * Reason Onset Date Comments Med Refill 05/26/2023 Encounter Details Date Type Department Care Team (Late st Contact Info) Description 05/26/2023 Refill [facility] [address] [place] [address] Name, MD Isaías [address] [place] [address] Chronic low back pain, unspecified back pain laterality, unspecified whether sciatica present Social History Tobacco Use Types Packs/Day Years Used Date Smoking Tobacco: Never Smokeless Tobacco: Never Alcohol Use Standard Drinks/Week Comments Never 0 (1 standard drink = 0.6 oz pur e alcohol) PHQ-2 Answer Date Recorded Patient Health Questionnaire-2 Score 0 05/08/2022 Housing Stability Answer Date Recorded What is your housing situation today? I have светлана isabel 12/23/[address] you li ve. Do you have problems with any of the following? None of the above 12/23/2022 Food Insecurity Answer Date Recorded Within the past 12 months, y ou worried that your food would run out before you got money to buy more: Never True 12/23/2022 Within the past 12 months,th e food you bought just didn't last and you didn't have enough money to get more: Never True Transportation Answer Date Recorded In the past 12 months, has l ack of transportation kept you from medical appts, meetings, work or from getting things needed for daily living? No 12/23/2022 Utilities Answer Date Recorded In the past 12 months, has t he electric, gas, oil or water company threatened to shut off services in your home? No 12/23/2022 Depression Answer Date Recorded Patient Health Questionnaire-2 Score 0 05/08/2022 Comments Unknown Sex and Gender Information Value [...] Description 05/17/2024 3:30 PM EDT Office Visit [address] [address] Name, MD Isaías [address] [place] [address] 05/31/2024 11:00 AM EDT Office Visit [address] [address] documented as of this encounter Goals Goal [...] Date Patient in chronic opioid therapy 05/29/2022 documented as of this encounter Care Teams Director Global Market Research Relationship Specialty Start Date End Date Name, MD Isaías [address] [place] [phone] PCP - General Family Medicine 03/09/18 documented as of this encounter
--- OUTSIDE RECORDS SUMMARY | 2024-04-22 11:57 | XMS_ITS | Encounter Summary ---
Author Organization [employer] Address [address] [facility] 7t [place] [address] Care Team Providers Care Spring Repairer Helper Hand Name Role Phone Name, Isaías CALVERT Primary Care Provider [phone] Reason for Visit * Reason Comments Med Refill Encounter Details Date Type Department Care Team ([facility] st Contact Info) Description 06/10/2023 Refill [facility] [address] [place] [address] Name, MD Isaías [address] [place] [address] Vitamin D deficiency Social History Tobacco Use Types Packs/Day Years [...] Description 05/17/2024 3:30 PM EDT Office Visit [address] [address] Name, MD Isaías [address] [place] [address] 05/31/2024 11:00 AM EDT Office Visit [address] [address] documented as of this encounter Goals Goal Patient Goal Type Associated Problems Recent Progress Patient-Stated? Author Help patient manage chronic opioid therapy Care Plan Patient in chronic opioid therapy Peggy Dominguez, RN Improve Sleep Habits Care Plan Patient in chronic opioid therapy No Peggy Manzano, RN documented as of this encounter Visit Diagnoses Diagnosis Vitamin D deficiency documented in this encounter Additional Health Concerns Active Problems Noted Date Diagnosed Date Patient in chronic opioid therapy 05/29/2022 Assessment Noted Time PHQ-9 Depression Total Score: 0 06/09/19 24 1:30 PM EDT documented as of this encounter Care Teams Spring Repairer Helper Hand Relationship Specialty Start Date End Date Name, MD Isaías [address] [place] [phone] PCP - General Family Medicine 03/09/18 documented as of this encounter
--- OUTSIDE RECORDS SUMMARY | 2024-04-22 11:57 | XMS_ITS | Encounter Summary ---
Author Organization [employer] [facility] Address [address] [place] [address] 7 [place] [address] Care Team Providers Care Clay Miller Name Role Phone Name, Isaías CALVERT Primary Care Provider [phone] Reason for Visit * Reason Comments Med Refill Encounter Details Date Type Department Care Team ([facility] Contact Info) Description 08/27/2022 Refill [facility] [address] [place], [place] [phone] Henna Harris FNP [address] [place], [place] [phone] Chronic pain syndrome Social History Tobacco Use Types Packs/Day Years Used Date Smoking Tobacco: Never Smokeless Tobacco: Never PHQ-2 Answer Date Recorded Patient Health Questionnaire-2 Score 0 05/08/2022 Depression Answer Date Recorded Patient Health Questionnaire-2 Score 0 05/08/2022 Comments Unknown Sex and Gender Information Value Date Recorded Sex Assigned at Female 01/06/2022 10:30 AM EDT Legal Sex Female 10:30 AM EDT Gender Identity Female 01/06/2022 10:30 AM EDT Sexual Orientation Straight 01/06/2022 10 :30 AM EDT COVID-19 Exposure Response Date Recorded In the last 10 days, have yo u been in contact with someone who was confirmed or suspected to have Coronavirus/COVID-19? No / Unsure 07/28/2022 10:39 AM EDT documented as of this encounter Plan of Treatment Upcoming Encounters Date Type Department Care Team ([facility] Contact Info) Description 05/17/2024 3:30 PM EDT Office Visit [facility] [address] [place] [phone] Name, MD Isaías [address] [place] [address] 05/31/2024 11:00 AM EDT Office Visit [facility] [address] [place] [address] documented as of this encounter Goals Goal Patient Goal Type Associated Problems Recent Progress Patient-Stated? Author Help patient manage chronic opioid therapy Care Plan Patient in chronic opioid therapy Peggy Dominguez, RN Improve Sleep Habits Care Plan Patient in chronic opioid therapy Peggy Dominguez, RN documented as of this encounter Visit Diagnoses Diagnosis Chronic pain syndrome documented in this encounter Additional Health Concerns Active Problems Noted Date Diagnosed Date Patient in chronic opioid therapy 05/29/2022 documented as of this encounter Care Teams Clay Miller Relationship Specialty Start Date End Date Name, MD Isaías [address] [place] [phone] PCP - General Family Medicine 03/09/18 documented as of this encounter
--- OUTSIDE RECORDS SUMMARY | 2024-04-22 11:57 | XMS_ITS | Clinical Summary ---
Author Organization [employer] Address [address] [facility] 7[address] [place] [address] Care Team Providers Care Audit Reviewer Name Role Phone Name, Isaías CALVERT Primary Care Provider [phone] Allergies Active Allergy Reactions Criticality Noted Date Comments Penicillins Other 01/23/2016 Other reaction(s): Unknown Medications cholecalciferol VITAMIN D (Vitamin D-3) 50 MCG (1999) tabletIndicatio ns:Vitamin D deficiency TAKE 1 TABLET BY MOUTH EVERY DAY 90 tablet 01/25/20 24 Active omeprazole (PriLOSEC) [address] capsuleIndicati ons:Heartburn TAKE 1 CAPSULE BY MOUTH EVERY DAY BEFORE A MEAL 90 capsule 02/01/20 24 Active Semaglutide-Reinlado ght Management (Wegovy) 1 MG/0.5ML solution auto-injector Inject 1 mL (2 mg) under the skin every 7 (seven) days. 2 mL 03/10/19 25 Active Diclofenac Sodium 1 % gelIndications: Pain in both hands APPLY 2 GRAMS TOPICALLY EVERY DAY TO BOTH HANDS 100 g 1 03/24/19 25 Active oxyCODONE (Roxicodone) 5 MG immediate release tabletIndicatio ns:Chronic low back pain, unspecified back pain laterality, unspecified whether sciatica present Take 1 tablet (5 mg) by mouth every 12 (twelve) hours if needed for severe pain for up to 28 days. 56 tablet 03/25/19 25 025 Active Diclofenac Sodium 1 % gelIndications: Pain in both hands APPLY 2 GRAMS TOPICALLY EVERY DAY TO BOTH HANDS 100 g 1 01/04/20 24 025 Discontinued(Re order (will not trigger notification to Pharmacy)) oxyCODONE (Roxicodone) 5 MG immediate release tabletIndicatio ns:Chronic low back pain, unspecified back pain laterality, unspecified whether sciatica present Take 1 tablet (5 mg) by mouth every 12 (twelve) hours if needed for severe pain for up to 28 days. 56 tablet 02/24/20 24 025 Discontinued(Re order (will not trigger notification to Pharmacy)) norethindrone (Aygestin) 5 MG tablet TOME 1 TABLETA POR VIA ORAL TODOS [place] 90 tablet 1 03/23/19 25 025 Discontinued(Th erapy completed) Active Problems Problem Noted Date Diagnosed Date longterm current use of opiate analgesic 2023 Overview (04/10/2024): Medication: oxycodone 5mg Q12H PRN Indication: chronic low back pain, hx of lumbar surgery Last SURVEY CREW CHIEF Agreement: 04/05/24 Tier II: SURVEY CREW CHIEF visit every 3 months (Dr. White, Mar 2024) Anemia 05/08/2022 Overview (09/03/2022): Due menstrual blood loss and poor absortion post bariatric surgery FOBT negative From [facility] note 11/2021 Checked iron studies: 20/443/5/3. Checked B12 and folate: 549/>20. Checked hemolytic screen: LDH 184. She had been taking oral iron for a couple of years without benefit. 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 I arranged for IV iron. I gave her a choice of iron dextran versus Ferrlecit. She picked the latter. She received 7 doses between 09/17 through 10/30. Bariatric surgery status 05/08/2022 History of lumbar surgery 05/08/2022 Overview (07/21/2023): June 2016: Right L5-S1 transforaminal lumbar interbody fusion Surgeon: Dr. Vogel Indication: L5-S1 spondylolisthesis r/t bilateral pars defect and RLE pain, numbness, and tingling. S/p failure of conservative management Loss of hair 03/20/2017 Chronic low back pain 07/01/2016 Overview (04/05/2024): -S/p lumbar surgery Assessment & Plan (04/05/2024 1:48 PM EST): -Good engagement and participation with Group Medical Visit model -Encouraged multifactorial approach to pain control including pharm and non- pharm modalities -UTOX and Pill count as expected Assessment & Plan (02/03/2024 5:55 PM EST): -Good engagement and participation with Group Medical Visit model -Encouraged multifactorial approach to pain control including pharm and non- pharm modalities -UTOX and Pill count as expected Assessment & Plan (12/01/2023 6:04 PM EDT): -Good engagement and participation with Group Medical Visit model -Encouraged multifactorial approach to pain control including pharm and non- pharm modalities -UTOX and Pill count as expected Assessment & Plan (09/29/2023 2:03 PM EDT): -Good engagement and participation with Group Medical Visit model -Encouraged multifactorial approach to pain control including pharm and non- pharm modalities -UTOX and Pill count as expected Assessment & Plan (07/21/2023 1:13 PM EDT): -Good engagement and participation with Group Medical Visit model, today was first visit. -Encouraged multifactorial approach to pain control including pharm and non- pharm modalities -UTOX and Pill count as expected Migraine 01/23/2016 Obesity (BMI 30-39.9) 01/23/2016 Heartburn 01/23/2016 Resolved Problems Problem Noted Date Diagnosed Date Resolved Date IUD (intrauterine device) in place 09/04/2022 12/01/2023 Overview (09/04/2022): Gerson IUD in place 11/2021 Encounters Date Type Department Care Team Description 04/05/2024 11:00 AM EST Office Visit [facility] [address] [place] [address] Henna Harris, [employer] TRUCK [employer]IVER Chronic low back pain, unspecified back pain laterality, unspecified whether sciatica present (Primary Dx); longterm current use of opiate analgesic; History of lumbar surgery 04/05/2024 Telephone [facility] [address] [place] [address] Peggy Manzano, RN [employer]IEF Agreement signed today 04/05/2024 Travel 03/25/2024 Telephone [facility] MEDIC[facility] [address] [place] [address] Isaías White MD Medication Question 03/25/2024 Telephone [facility] [place] [address] Isaías White MD Med Refill 03/24/2024 Refill [facility] [address] [place] [address] Isaías White MD Chronic low back pain, unspecified back pain laterality, unspecified whether sciatica present 03/24/2024 Refill [facility] [address] [place] [address] Smiley Bustillos, BOILER SERVICE TECHNICIAN Pain in both hands 03/24/2024 Orders Only [facility] [place] [address] Alina Sumner, [facility] 03/23/2024 Telephone [facility] [address] [facility] [place] [address] Lizzette Bernstein RN Medication Question 03/23/2024 Refill [facility] [address] [place] [address] Alina Sumner, [facility] 03/23/2024 Refill [facility] [place] [address] Isaías White MD 03/17/2024 Refill [facility] [place] [address] Isaías White MD 03/15/2024 Telephone [facility] [address] [facility] [place] [address] Maggi Reich MA feb recall 03/09/2024 Refill [facility] [address] [facility] [place] [address] JennBrandee paulino, [employer] TRUCK DRIVER Vitamin D deficiency 03/08/2024 Refill [facility] [address] [facility] [place] [address] Isaías White MD 03/08/2024 Telephone [facility] [address] [place] [address] Isaías White MD Nurse Triage 03/04/2024 Telephone [facility] [address] [place] [address] Norma Cervantes, MARVIN 02/29/2024 Refill [facility] [address] [place] [address] Alina Sumner CNM 02/23/2024 Refill [facility] [address] [place] [address] Isaías White MD Chronic low back pain, unspecified back pain laterality, unspecified whether sciatica present 02/12/2024 Telephone [facility] [address] [place] [address] Sangeeta Valle, RN Med Refill (Wegovy notification) 02/11/2024 Refill [facility] [address] [place] [address] Isaías White MD 02/10/2024 Refill [facility] [address] [place] [address] Isaías White MD 02/02/2024 11:00 AM EST Office Visit [facility] [address] [place] [address] Henna Harris, [employer]UCK DRIVER Chronic low back pain, unspecified back pain laterality, unspecified whether sciatica present (Primary Dx); longterm current use of opiate analgesic; History of lumbar surgery 02/02/2024 Travel 02/01/2024 Refill [facility] [address] [place] [address] Smiley Bustillos, BOILER SERVICE TECHNICIAN Pain in both hands 02/01/2024 Refill [facility] [address] [place] [address] [place], Brandee, [employer] A [employer]AL TRUCK DRIVER Heartburn 01/26/2024 Refill [facility] [address] [place] [address] Isaías White MD Chronic low back pain, unspecified back pain laterality, unspecified whether sciatica present 01/25/2024 Refill [facility] [address] [place] [address] [place] [address] Name, MD Isaías Chronic low back pain, unspecified back pain laterality, unspecified whether sciatica present 01/23/2024 Refill [facility] [address] [place] [address] [place], Brandee, [employer] A [employer] TRUCK DRIVER Vitamin D deficiency from Last 3 Months Immunizations Name Administration Dates Next Due Influenza injectable quadriv alent IIV4 with preservative 01/23/2016 Influenza injectable quadriv alent preservative free 03/17/2023,11/28/2021,02/20/2021,2019,03/16/2018 Influenza, IIV3, injectable 01/09/2011 Influenza, seasonal, injecta ble, preservative free 11/23/2023 Pfizer Covid-19 Vaccine 12+ 01/11/2024,0 03/17/2023,12/07/2020,2020,04/18/2020 Pfizer Covid-19 Vaccine 12+ Bivalent 05/08/2022 TD (adult), 2 Lf tetanus tox oid, preservative free, adsorbed 08/14/2021 Tdap 01/09/2011 Social History Tobacco Use Types Packs/Day Years Used Date Smoking Tobacco: Never Smokeless Tobacco: Never Tobacco Cessation:Counseling Given: Not Answered Alcohol Use Standard Drinks/Week Comments Never 0 [...] Orientation Straight 01/06/2022 10 :30 AM EDT Last Filed Vital Signs Vital Sign Reading Time Taken Comments Blood Pressure 126/73 01/11/2024 3:37 PM EST Pulse 70 01/11/2024 3:37 PM EST Temperature 37.6 ??C (99.6 ??F) 11/11/2023 9:53 AM ED T Respiratory Rate 20 01/11/2024 3:37 PM EST Oxygen Saturation 100% 01/11/2024 3:37 PM EST Inhaled Oxygen Concentration - - Weight 97.1 kg (214 lb) 01/11/2024 3:37 PM EST Height 157.5 cm (5' 2 ) 01/11/2024 3:37 PM EST Body Mass Index 39.14 01/11/2024 3:37 PM EST Plan of Treatment Upcoming Encounters Date Type Department Care Team (Late st Contact Info) Description 05/17/2024 3:30 PM EDT Office Visit [facility] [address] [place] [address] Name, [place] [address] 05/31/2024 11:00 AM EDT Office Visit [facility] [address] [place] [address] Health Maintenance Due Date Last Done Comments HIV Screening 1980 Hepatitis C Screening 02/16/2000 Hepatitis A Vaccines (1 of 2 - Risk 2-dose series) 2001 Hepatitis B Vaccines (1 of 3 - 19+ 3-dose series) 2001 Depression Screening 06/08/2024 06/09/2023, 06/09/19 SDOH Screening 06/08/2024 06/09/2023 Alcohol/Substance Use Screening 10/11/2024 10/12/2023 Family Planning (PISQ) 10/26/2024 10/27/2023 Tobacco Screening 01/10/2025 01/11/2024 Mammogram 04/18/2025 04/18/2023 Lipid Panel 08/20/2026 08/20/2021 Cervical Cancer Screening 10/14/2026 HPV/Cotest 10/14/2026 10/15/2023, 07/03/2020 Pap Smear 10/14/2026 10/15/2023, 07/03/2020 DTaP/Tdap/Td Vaccines (3 - Td or Tdap) 08/15/2031 08/14/2021, 01/09/2011 Zoster Vaccines (1 of 2) 02/16/2032 RSV Patients and Patients Aged 60 years or older (1 - 1-dose 75+ series) 2057 Influenza Vaccine Completed 11/23/2023, , 11/28/2021, Additional history exists COVID-19 Vaccine Completed 01/11/2024, 11/2023, 05/08/2022, Additional history exists HIB Vaccines Aged Out No longer eligi ble based on patient's age to complete this topic HPV Vaccines Aged Out No longer eligi ble based on patient's age to complete this topic IPV Vaccines Aged Out No longer eligi ble based on patient's age to complete this topic Meningococcal Vaccine Aged Out No karen gena eligible based on patient's age to complete this topic Pneumococcal Vaccine: Pediatrics (0 to 5 Years) and At-Risk Patients (6 to 49) Years) Aged Out No longer eligible based on patient's age to complete this topic RSV under 20 months Aged Out No longe r eligible based on patient's age to complete this topic Rotavirus Vaccines Aged Out No longer eligible based on patient's age to complete this topic Goals Goal Patient Goal Type Associated Problems Recent Progress Patient-Stated? Author Help patient manage chronic opioid therapy Care Plan Patient in chronic opioid therapy No Peggy Manzano, MARVIN Improve Sleep Habits Care Plan Patient in chronic opioid therapy No Peggy Manzano RN Procedures Procedure Name Priority Date/Time Associated Diagnosis Comments POCT TANISHA-14 URINE DRUG SCREEN Routine 04/05/2024 1:38 PM EST Chronic low back pain, unspecified back pain laterality, unspecified whether sciatica present AMB REFERRAL TO GASTROENTEROLOGY Routine 2024 Heartburn POCT TANISHA-14 URINE DRUG SCREEN Routine 02/02/2024 1:38 PM EST Chronic low back pain, unspecified back pain laterality, unspecified whether sciatica present longterm current use of opiate analgesic THINPREP IMAGING PAP AND HPV MRNA E6/E7 Routine 10/15/2023 1:19 PM EDT BI MAMMOGRAM SCREENING TOMOSYNTHESIS BILATERAL Routine 04/18/2023 7:49 AM EST LIPID PANEL, STANDARD Routine 08/20/2021 10:16 AM EDT from Last 3 Months or Most Recently Relevant to Health Maintenance Results * POCT TANISHA-14 Urine Drug Screen (04/05/2024 1:38 PM EST) Only the most recent of2 resultswithin the time period is included. Oxycodone Screen, Urine Positive Urine Urine specimen obtained by clean catch procedure / Unknown 04/05/2024 1:38 PM EST Narrative Peggy Manzano RN - 04/05/2024 1:38 PM EST UTOX cup Lot#[id number] Exp. 12/01/25 Internal Pass Control us Henna [place] POINT OF CARE TEST ENTER/EDIT ORDERABLES Final Result * Referral to Gastroenterology (2024) us Isaías White MD OUTPATIENT REFERRAL ORDERABLES F inal Result * ThinPrep Imaging Pap and HPV mRNA E6/E7 (10/15/2023 1:19 PM EDT) HPV nRNA E6/E7 Not Detected Not Detected [facility] Comment:Methodology: Transcr iption-Mediated AmplificationThis assay detects E6/E7 viral messenger RNA (mRNA) from 14high-risk HPV types (16,18,31,33,35,39,45,51,52,56,58,59,66,68).Cervical sources are required for HPV testing.If a vaginal source from a patient who has had atotal hysterectomy with removal of cervix wassubmitted, please contact the testing laboratoryfor alternative testing options.For additional information, please refer tohttp://education.bigtincan/faq/SDA120j8(This link if provided for information/educational purposes only.)THIS TEST WAS PERFORMED AT:[facility] [address] [id number] MUNSON MD SOURCE: SEE NOTE [facility] Comment:None given Report Status: [facility] Clinical Information: SEE NOTE [facility] Comment:None given LMP: SEE NOTE [facility] Comment:NONE GIVEN Prev. PAP: SEE NOTE [facility] Comment:NONE GIVEN Prev. BX: SEE NOTE [facility] Comment:NONE GIVEN Statement Of Adequacy: SEE NOTE [facility] Comment:Satisfactory for flory luation.Endocervical/transformation zone componentpresent. General Categorization: [facility] Interpretation/Result: SEE NOTE [facility] Comment:Cytology Results: Ne gative for intraepitheliallesion or malignancy. Cytology Comment SEE NOTE [facility] Comment:This Pap test has be en evaluated with computerassisted technology. Band Tier: SEE NOTE [facility] Comment:MSM, CT(ASCP)CT scre ening location: [place] [address] Review Band Tier: [facility] Pathologist [facility] PAP Infection [facility] See Note SEE NOTE [facility] Comment:EXPLANATORY NOTE:The Pap is a screening test for cervical cancer. It isnot a diagnostic test and is subject to false negativeand false positive results. It is most reliable when asatisfactory sample, regularly obtained, is submittedwith relevant clinical findings and history, and whenthe Pap result is evaluated along with historic andcurrent clinical information. 10/15/2023 1:19 PM EDT 10/15/2023 4:06 PM EDT Narrative [facility] - 10/20/2023 1:44 PM EDT SEE SCANNED RESULTS IN EMR us Alina Sumner CN LAB PATHOLOGY ORDERABLES Final Result [facility] [address] [place] [address] [phone] * BI Mammogram Screening Tomosynthesis Bilateral (04/18/2023 7:49 AM EST) Anatomical Region Laterality Modality Breast Bilateral Mammography 04/18/2023 7:49 AM EST Narrative 05/02/2023 1:23 PM EST ? [facility] ? [address] ?[place] [id number] ? Mammography Report ? Signed ? Patient: Shepherd,Marina ?MR#: [id number] ? : 1980 ?Acct:[id number] ? Age/Sex: 43 / F ?ADM Date: 02/10/24 ? Loc: HO.MAMMO ? Attending : Isaías Name MD ? Ordering Physician: Name,Isaías MD ?Results: 1Negative ? Date of Service: 04/18/23 ?Follow Up: 1 Year From Orig ?? inal Mammogram ? Procedure(s): MM tomosynthesis screening BI ?? Accession Number(s): [id number] ? cc: Name,Isaías CALVERT ? EXAMINATION: ?? MM SCREENING DIGITAL BREAST TOMOSYNTHESIS, BILATERAL ? CLINICAL INFORMATION: ? Screening. Asymptomatic. ? COMPARISON: ?? Mammography: This study is compared with the most recent mammogram ?? dating back to 2017. ? TECHNIQUE: ?? Digital breast tomosynthesis is performed in both the craniocaudal and ?? mediolateral oblique views along with computer-aided detection (CAD). ?? Synthesized 2D images are generated from the tomosynthesis. ? FINDINGS: ?? The breasts are almost entirely fatty (ACR BI-RADS breast composition ?? Category a). ? There are no significant masses, abnormal calcifications, or other ?? abnormalities. ? MM/MM tomosynthesis screening BI ?? IMPRESSION: ?? No mammographic evidence of malignancy. ? ASSESSMENT: ? BI-RADS BI-RADS 1 - Negative ? RECOMMENDATION: ?? Routine annual mammography screening. ? 1 year F/U ? This examination should not preclude the clinical evaluation of a ?? suspicious palpable abnormality. ? This patient's information was entered into a reminder system with a ?? target due date for their next mammogram. ? Dictated By: ?Cammy Ni MD ? Signed By: ?<Electronically signed by Cammy Ni MD in OV> ? 05/02/23 1319 ? DD/ 0749 ? TD/TT: ? Welder Apprentice: ? Procedure Note Sera, Image - 05/02/2023 [place] [facility] [address] [place] [address] Mammography Report Signed Patient: JoaoJesusyMR#: [id number] : 1980Acct:[id number] Age/Sex: 43 / FADM Date: 04/18/23 Loc: HO.MAMMO Attending Dr: Isaías White MD Ordering Physician: Isaías White MDResults: 1Negative Date of Service: 04/18/23Follow Up: 1 Year From Orig inal Mammogram Procedure(s): MM tomosynthesis screening BI Accession Number(s): [id number] cc: Name,Isaías CALVERT EXAMINATION: MM SCREENING DIGITAL BREAST TOMOSYNTHESIS, BILATERAL CLINICAL INFORMATION: Screening. Asymptomatic. COMPARISON: Mammography: This study is compared with the most recent mammogram dating back to 2017. TECHNIQUE: Digital breast tomosynthesis is performed in both the craniocaudal and mediolateral oblique views along with computer-aided detection (CAD). Synthesized 2D images are generated from the tomosynthesis. FINDINGS: The breasts are almost entirely fatty (ACR BI-RADS breast composition Category a). There are no significant masses, abnormal calcifications, or other abnormalities. MM/MM tomosynthesis screening BI IMPRESSION: No mammographic evidence of malignancy. ASSESSMENT: BI-RADS BI-RADS 1 - Negative RECOMMENDATION: Routine annual mammography screening. 1 year F/U This examination should not preclude the clinical evaluation of a suspicious palpable abnormality. This patient's information was entered into a reminder system with a target due date for their next mammogram. Dictated By: Cammy Ni MD Signed By: <Electronically signed by Cammy Ni MD in OV> 05/02/23 1319 DD/ 0749 TD/TT: Welder Apprentice: Isaías White MD [facility] BI PROCEDURES Edited Result - Final * LIPID PANEL, STANDARD (08/20/2021 10:16 AM EDT) Chol/HDLC Ratio 3.1 <5.0 (calc) [facility] Cholesterol, Total 156 <200 mg/dL [facility] HDL Cholesterol 50 > OR = 50 mg/dL [facility] LDL Cholesterol 87 mg/dL (calc) [facility] Comment: Reference range: <100 ?? Desirable range <100 mg/dL for primary prevention; ?? <70 mg/dL for patients with CHD or diabetic patients ?? with > or = 2 CHD risk factors. ?? LDL-C is now calculated using the Oswaldo ?? calculation, which is a validated novel method providing ?? better accuracy than the Friedewald equation in the ?? estimation of LDL-C. ?? Salomon QUIÑONES et al. ALINA. 2013;310(19): 2070-5310 ?? (http://education.[employer]faq/KHW373) Non-HDL Cholesterol 106 <130 mg/dL (calc) [facility] Comment: For patients with diabetes plus 1 major ASCVD risk ?? factor, treating to a non-HDL-C goal of <100 mg/dL ?? (LDL-C of <70 mg/dL) is considered a therapeutic ?? option. Triglycerides 95 <150 mg/dL [facility] 08/20/2021 10:1 6 AM EDT us Isaías White MD LAB BLOOD ORDERABLES Final Resul t [facility] [address] from Last 3 Months or Most Recently Relevant to Health Maintenance Additional Health Concerns Active Problems Noted Date Diagnosed Date Patient in chronic opioid therapy 05/29/2022 Insurance [facility] C[facility] Care Teams Audit Reviewer Relationship Specialty Start Date End Date Name, MD Isaías [address] [place] [id number] PCP - General Family Medicine 03/09/18
--- OUTSIDE RECORDS SUMMARY | 2024-04-22 11:57 | XMS_ITS | Encounter Summary ---
Author Organization [employer] Address [address] [facility] [address] [place] [address] Care Team Providers Care Webbing Tacker Name Role Phone Name, Isaías CALVERT Primary Care Provider [phone] Encounter Details Date Type Department Care Team (Latest Contact Info) Description 04/05/2024 Travel Social History Tobacco Use Types Packs/Day Years [...] Description 05/17/2024 3:30 PM EDT Office Visit [address] [address] Isaías White MD [address] [place] [address] 05/31/2024 11:00 AM EDT Office Visit [address] [address] documented as of this encounter Goals Goal [...] documented as of this encounter Care Teams Webbing Tacker Relationship Specialty Start Date End Date Name, MD Isaías [address] [place] [address] PCP - General Family Medicine 03/09/18 documented as of this encounter
--- OUTSIDE RECORDS SUMMARY | 2024-04-22 11:57 | XMS_ITS | Encounter Summary ---
Author Organization [employer] [facility] Address [address] [place] [address] 7t [place] [address] Care Team Providers Care Mine Production Engineer Name Role Phone Name, Isaías CALVERT Primary Care Provider [phone] Reason for Visit * Reason Onset Date Comments Med Refill 09/25/2022 Encounter Details Date Type Department Care Team (Late st Contact Info) Description 09/25/2022 Refill [facility] MEDICINE 230 [place], [place] [phone] Name, MD Isaías 230 [place] [address] Chronic pain syndrome Social History Tobacco Use [...] suspected to have Coronavirus/COVID-19? No / Unsure 09/03/2022 1:54 PM EDT documented as of this encounter Plan of Treatment Upcoming Encounters Date Type Department Care Team (Late st Contact Info) Description 05/17/2024 3:30 PM EDT Office Visit [address] [address] Name, [place] [address] 05/31/2024 11:00 AM EDT Office Visit [address] [address] documented as of this encounter Goals Goal [...] documented as of this encounter Care Teams Mine Production Engineer Relationship Specialty Start Date End Date Name, MD Isaías [address] [place] [address] PCP - General Family Medicine 03/09/18 documented as of this encounter
--- OUTSIDE RECORDS SUMMARY | 2024-04-22 11:57 | XMS_ITS | Encounter Summary ---
Author Organization [employer] Address [address] [facility] 7t [place] [address] Care Team Providers Care Textile Stylist Name Role Phone Name, Isaías CALVERT Primary Care Provider [phone] Reason for Visit * Reason Comments Med Change Request Encounter Details Date Type Department Care Team ([facility] st Contact Info) Description 03/23/2024 Refill [facility] 230 [place], [place] [phone] Alina Sumner CNM 230 [place] [address] Social History Tobacco Use Types Packs/Day Years [...] AM EDT documented as of this encounter Miscellaneous Notes * Telephone Encounter - Alina Sunmer CNM - 03/23/2024 2:39 PM EST I sent in a 90 day supply of Marina's norethindrone since pharmacy wanted 90 d supply. Per last HEALTH INSURANCE AGENT notes, plan was for IUD insertion at their office. Please make sure she has followup with them. Thanks! documented in this encounter Plan of Treatment Upcoming Encounters Date Type Department Care Team (Late st Contact Info) Description 05/17/2024 3:30 PM EDT Office Visit [address] [address] Name, MD Isaías [address] [place] [address] 05/31/2024 11:00 AM EDT Office Visit [address] [address] documented as of this encounter Goals Goal [...] documented as of this encounter Care Teams Textile Stylist Relationship Specialty Start Date End Date Name, MD Isaías 230 [place] [address] PCP - General Family Medicine 03/09/18 documented as of this encounter
--- OUTSIDE RECORDS SUMMARY | 2024-04-22 11:57 | XMS_ITS | Encounter Summary ---
Author Organization [facility] [facility] Address [address] [place] [address] 7t [place] [address] Care Team Providers Care Parking Regulation Enforcement Officer Name Role Phone Name, Isaías CALVERT Primary Care Provider [phone] Reason for Visit * Reason Comments Med Refill Encounter Details Date Type Department Care Team (Late Contact Info) Description 09/25/2022 Refill [facility] MEDICINE 230 [place], [place] [phone] Name, MD Isaías 230 [place] [address] Chronic pain syndrome Social History Tobacco Use [...] Encounters Date Type Department Care Team (Late Contact Info) Description 05/17/2024 3:30 PM EDT Office Visit [address] [address] Name, [place] [address] 05/31/2024 11:00 AM EDT Office Visit [address] [address] documented as of this encounter Goals Goal [...] documented as of this encounter Care Teams Parking Regulation Enforcement Officer Relationship Specialty Start Date End Date Name, MD Isaías [address] [place] [address] PCP - General Family Medicine 03/09/18 documented as of this encounter
--- OUTSIDE RECORDS SUMMARY | 2024-04-22 11:57 | XMS_ITS | Encounter Summary ---
Author Organization [employer] Address [address] [facility] 7t [place] [address] Care Team Providers Care Polisher And Sander Name Role Phone Name, Isaías CALVERT Primary Care Provider [phone] Encounter Details Date Type Department Care Team (Late st Contact Info) Description 03/24/2024 Orders Only [facility] 230 [place], [place] [phone] Alina Sumner, [facility] 230 [place], [place] [phone] Social History Tobacco Use Types Packs/Day Years [...] Description 05/17/2024 3:30 PM EDT Office Visit [address] [address] Isaías White MD [address] [place] [address] 05/31/2024 11:00 AM EDT Office Visit [address] [address] documented as of this encounter Goals Goal [...] documented as of this encounter Care Teams Polisher And Sander Relationship Specialty Start Date End Date Isaías White MD [address] [place] [address] PCP - General Family Medicine 03/09/18 documented as of this encounter
--- OUTSIDE RECORDS SUMMARY | 2024-04-22 11:57 | XMS_ITS | Encounter Summary ---
Author Organization [employer] Address 75 [facility] 7t [place] [address] Care Team Providers Care Jailer/Training Officer Name Role Phone Name, Isaías CALVERT Primary Care Provider Reason for Visit * Reason Onset Date Comments SPECIAL DELIVERY CARRIER Agreement signed today 04/05/2024 Encounter Details Date Type Department Care Team ([facility] st Contact Info) Description 04/05/2024 Telephone [facility] MEDICINE 230 [place] [address] Peggy Manzano, MARVIN SPECIAL DELIVERY CARRIER Agreement signed today Social History Tobacco Use Types Packs/Day Years [...] encounter Miscellaneous Notes * Telephone Encounter - Peggy Manzano RN - 04/05/2024 1:40 PM EST Pt attended chronic pain group today SPECIAL DELIVERY CARRIER Agreement reviewed and signed. BPI updated Pain severity score of 7, activity interference score of 6.3. Previous BPI completed 12/01/23 with pain severity score of 6.5, activity interference score of 6.1. documented in this encounter Plan of Treatment Upcoming Encounters Date Type Department Care Team (Late st Contact Info) Description 05/17/2024 3:30 PM EDT Office Visit [address] [address] Name, MD Isaías [address] [place] [address] 05/31/2024 11:00 AM EDT Office Visit [address] [address] documented as of this encounter Goals Goal [...] documented as of this encounter Care Teams Jailer/Training Officer Relationship Specialty Start Date End Date Name, MD Isaías 230 [place] [address] PCP - General Family Medicine 03/09/18 documented as of this encounter
--- OUTSIDE RECORDS SUMMARY | 2024-04-22 11:57 | XMS_ITS | Encounter Summary ---
Author Organization [employer] [facility] Address 75 [facility] 7t [place] [address] Care Team Providers Care Optometric Aide Name Role Phone Name, Isaías CALVERT Primary Care Provider [phone] Encounter Details Date Type Department Care Team ([facility] Contact Info) Description 04/07/2022 Orders Only [facility] MED & PEDS [address] [place], [place] [phone] Codie Luna LPN Social History Tobacco Use Types Packs/Day Years Used Date Smoking Tobacco: Never Assessed Comments Unknown Sex and Gender Information Value [...] suspected to have Coronavirus/COVID-19? No / Unsure 03/25/2022 12:34 PM EST documented as of this encounter Plan of Treatment Upcoming Encounters Date Type Department Care Team (Late st Contact Info) Description 05/17/2024 3:30 PM EDT Office Visit [facility] MEDICINE [address] [place] [address] Name, MD Isaías [address] [place] [address] 05/31/2024 11:00 AM EDT Office Visit [address] [phone] documented as of this encounter Visit Diagnoses Not on filedocumented in this encounter Care Teams Optometric Aide Relationship Specialty Start Date End Date Name, MD Isaías 230 [place] [address] PCP - General Family Medicine 03/09/18 documented as of this encounter
--- OUTSIDE RECORDS SUMMARY | 2024-04-22 11:57 | XMS_ITS | Encounter Summary ---
Author Organization [employer] Address 75 [facility] 7t [place] [address] Care Team Providers Care Finance Broker Name Role Phone Name, Isaías CALVERT Primary Care Provider Reason for Visit * Reason Comments Med Change Request Encounter Details Date Type Department Care Team ([facility] st Contact Info) Description 02/11/2024 Refill [facility] MEDICINE 230 [place], [place] [phone] Name, MD Isaías 230 [place] [address] Social History Tobacco Use Types Packs/Day Years [...] 05/17/2024 3:30 PM EDT Office Visit [address] [address] NameIsaías MD [address] [place] [address] 05/31/2024 11:00 AM EDT Office Visit [address] [address] documented as of this encounter Goals Goal Patient Goal Type Associated Problems Recent Progress Patient-Stated? Author Help patient manage chronic opioid therapy Care Plan Patient in chronic opioid therapy No Peggy Manzano, MARVIN Improve Sleep Habits Care Plan Patient in chronic opioid therapy No Peggy Manzano, MARVIN documented as of this encounter Visit Diagnoses Not on filedocumented in this encounter Additional Health Concerns Active Problems Noted Date Diagnosed Date Patient in chronic opioid therapy 05/29/2022 Assessment Noted Time PHQ-9 Depression Total Score: 0 06/09/19 24 1:30 PM EDT documented as of this encounter Care Teams Finance Broker Relationship Specialty Start Date End Date Isaías White MD [address] [place] [address] PCP - General Family Medicine 03/09/18 documented as of this encounter
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
--- OUTSIDE RECORDS SUMMARY | 2024-04-22 11:57 | XMS_ITS | Encounter Summary ---
Author Organization [employer] Address [address] [facility] 7t [place] [address] Care Team Providers Care Pot Firer Name Role Phone Name, Isaías CALVERT Primary Care Provider [phone] Encounter Details Date Type Department Care Team (Late st Contact Info) Description 04/05/2024 11:00 AM EST Office Visit [facility] MEDICINE 230 [place] [address] Henna Harris FNP [address] [place] [address] Chronic low back pain, unspecified back pain laterality, unspecified whether sciatica present (Primary Dx); FDC current use of opiate analgesic; History of lumbar surgery Social History Tobacco Use Types Packs/Day Years [...] the past 12 months, has t he [employer], gas, oil or water [employer] threatened to shut off services in your home? No 06/09/2023 Depression Answer Date Recorded Patient Health Questionnaire-2 Score 0 06/09/2023 Comments No Sex and Gender Information Value Date Recorded Sex Assigned at Female 01/06/2022 10:30 AM EDT Legal Sex Female 10:30 AM EDT Gender Identity Female 01/06/2022 10:30 AM EDT Sexual Orientation Straight 01/06/2022 10 :30 AM EDT documented as of this encounter Progress Notes * Henna Harris, PAINT MIXER - 04/05/2024 11:00 AM EST Subjective: Marina Shepherd is a 44 y.o. female w/ PMH migraine, anemia, and hx chronic low back pain s/p lumbar surgery, who presents to the office for Chronic Pain Clinic Group visits. Initial Group visit: 07/21/23 Group Visit Number: 5 Last PCP visit: 01/11/24, Dr. White Group Confidentiality last signed: 07/21/23 Group Topic: Functional Pain Goals Chronic Pain History: Associated Diagnosis: chronic low back pain, history of lumbar surgery June 2016: Right L5-S1 transforaminal lumbar interbody fusion Surgeon: Dr. Vogel Indication: L5-S1 spondylolisthesis r/t bilateral pars defect and RLE pain, numbness, and tingling.S/p failure of conservative management Lumbar XR June 2016: Post-operative changes at L5-S1 level. No evidence of complication. Current pharm tx: Medication: Oxycodone 5mg Q12H PRN. States taking medication as prescribed. Past therapy: physical therapy, cortisone injections, OTC analgesics, back surgery Social history: -Working in [employer], Thursday-Thursday. Review of Systems Constitutional: Negative for chills and fever. Respiratory: Negative for cough and wheezing. Cardiovascular: Negative for chest pain. Gastrointestinal: Negative for vomiting. Musculoskeletal: Positive for back pain. Physical Exam Constitutional: Appearance: Normal appearance. HENT: Head: Atraumatic. Pulmonary: Effort: Pulmonary effort is normal. Musculoskeletal: Comments: Gait WNL Neurological: Mental Status: She is alert and oriented to person, place, and time. Psychiatric: Mood and Affect: Mood normal. Behavior: Behavior normal. Problem List Items Addressed This Visit Nervous History of lumbar surgery Overview June 2016: Right L5-S1 transforaminal lumbar interbody fusion Surgeon: Dr. Vogel Indication: L5-S1 spondylolisthesis r/t bilateral pars defect and RLE pain, numbness, and tingling.S/p failure of conservative management Other Chronic low back pain - Primary Overview -S/p lumbar surgery Current Assessment & Plan -Good engagement and participation with Group Medical Visit model -Encouraged multifactorial approach to pain control including pharm and non- pharm modalities -UTOX and Pill count as expected Relevant Orders POCT TANISHA-14 Urine Drug Screen (Completed) remote computer terminal operator current use of opiate analgesic Overview Medication: oxycodone 5mg Q12H PRN Indication: chronic low back pain, hx of lumbar surgery Last REINSURANCE CLERK Agreement: 04/05/24 Follow up: 1-3 months for Group Chronic Pain Clinic. Follow up as scheduled with PCP, sooner as needed. * Peggy Manzano RN - 04/05/2024 11:00 AM EST REINSURANCE CLERK rural sociologist: PDMP reviewed today. Last fill date: 03/25/24 Oxycodone 5mg count was 34, anticipated 33 to be remaining. UTOX completed. Positive for OXY, Negative for AMP, BAR, BUP, BZO, YAN, FTY, MDMA, MET, MOP, MTD, PCP, TCA, THC. UTOX as expected. REINSURANCE CLERK Agreement reviewed and signed. BPI updated today. Pain severity score of 7, activity interference score of 6.3. Previous BPI completed 12/01/23 with pain severity score of 6.5, activity interference score of 6.1. Will update PCP with BPI scoring. documented in this encounter Miscellaneous Notes * Assessment & Plan Note - GORGE Marie - 04/05/2024 1:48 PM ESTAssociated Problem(s): Chronic low back pain -Good engagement and participation with Group Medical Visit model -Encouraged multifactorial approach to pain control including pharm and non- pharm modalities -UTOX and Pill count as expected documented in this encounter Plan of Treatment Upcoming Encounters Date Type Department Care Team (Late st Contact Info) Description 05/17/2024 3:30 PM EDT Office Visit [address] [address] Name, MD Isaías [address] [place] [address] 05/31/2024 11:00 AM EDT Office Visit [address] [address] documented as of this encounter Goals Goal Patient Goal Type Associated Problems Recent Progress Patient-Stated? Author Help patient manage chronic opioid therapy Care Plan Patient in chronic opioid therapy Peggy Dominguez, RN Improve Sleep Habits Care Plan Patient in chronic opioid therapy Peggy Dominguez, RN documented as of this encounter Procedures Procedure Name Priority Date/Time Associated Diagnosis Comments POCT TANISHA-14 URINE DRUG SCREEN Routine 04/05/2024 1:38 PM EST Chronic low back pain, unspecified back pain laterality, unspecified whether sciatica present documented in this encounter Results * POCT TANISHA-14 Urine Drug Screen (04/05/2024 1:38 PM EST) Oxycodone Screen, Urine Positive Urine Urine specimen obtained by clean catch procedure / Unknown 04/05/2024 1:38 PM EST Narrative Peggy Manzano RN - 04/05/2024 1:38 PM EST UTOX cup Lot#[id number] Exp. 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
--- OUTSIDE RECORDS SUMMARY | 2024-04-22 11:57 | XMS_ITS | Encounter Summary ---
Author Organization [email or web address] Address [address] [facility] 7t [place] [address] Care Team Providers Care Plate Glass Polisher Name Role Phone Name, Isaías CALVERT Primary Care Provider Reason for Visit * Reason Onset Date Comments Med Refill 03/24/2024 Encounter Details Date Type Department Care Team (Late st Contact Info) Description 03/24/[address] [facility] MEDICINE [address] [place] [address] Name, MD Isaías [address] [place] [address] Chronic low back pain, unspecified back pain [...] the past 12 months, has t he [employer], [employer], oil or water [employer] threatened to shut off services in your [...] Telephone Encounter - Peggy Manzano RN - 03/25/2024 8:33 AM EST Duplicate request, was sent to covering PCP yesterday. * Telephone Encounter - Jerman Valencia - 03/24/2024 10:17 AM EST TC from pt requesting medication refill. Medications needing refill : oxyCODONE (Roxicodone) 5 MG immediate release tablet To be sent to: [facility]/pharmacy #[id number] [place], [place] - [address] documented in this encounter Plan of Treatment Upcoming Encounters Date Type Department Care Team (Late st Contact Info) Description 05/17/2024 3:30 PM EDT Office Visit [facility] MEDICINE [address] [place] [address] Name, MD Isaías [address] [place] [address] 05/31/2024 11:00 AM EDT Office Visit [facility] MEDICINE [address] [place] [address] documented as of this encounter Goals Goal [...] documented as of this encounter Care Teams Plate Glass Polisher Relationship Specialty Start Date End Date Name, MD Isaías [address] [place] [address] PCP - General Family Medicine 03/09/18 documented as of this encounter
--- OUTSIDE RECORDS SUMMARY | 2024-04-22 11:57 | XMS_ITS | Encounter Summary ---
Author Organization [employer] Address [address] [facility] 7t [place] [address] Care Team Providers Care Emergency Department Aide Name Role Phone Name, Isaías CALVERT Primary Care Provider [phone] Reason for Visit * Reason Comments Med Refill Encounter Details Date Type Department Care Team ([facility] st Contact Info) Description 05/18/2023 Refill [facility] MEDICINE [address] [place] [address] Name, MD Isaías [address] [place] [address] Vitamin D deficiency Social History Tobacco Use [...] Description 05/17/2024 3:30 PM EDT Office Visit [address] [address] NameIsaías MD [address] [place] [address] 05/31/2024 11:00 AM EDT Office Visit [address] [address] documented as of this encounter Goals Goal [...] documented as of this encounter Care Teams Emergency Department Aide Relationship Specialty Start Date End Date Name, MD Isaías [address] [place] [address] PCP - General Family Medicine 03/09/18 documented as of this encounter
--- OUTSIDE RECORDS SUMMARY | 2024-04-22 11:57 | XMS_ITS | Encounter Summary ---
Author Organization [email or web address] Address 75 [facility] 7t [place] [address] Care Team Providers Care Site Inspector Name Role Phone Name, Isaías CALVERT Primary Care Provider [phone] Reason for Visit * Reason Onset Date Comments Med Refill 02/01/2024 Encounter Details Date Type Department Care Team (Late st Contact Info) Description 02/01/2024 Refill [facility] MED[facility]INE 230 [place], [place] [phone] Smiley Bustillos, JUDY 230 [place] [address] Pain in both hands Social History Tobacco [...] Description 05/17/2024 3:30 PM EDT Office Visit [facility] [address] [place] [address] Name, MD Isaías [address] [place] [address] 05/31/2024 11:00 AM EDT Office Visit [address] [address] documented as of this encounter Goals Goal [...] documented as of this encounter Care Teams Site Inspector Relationship Specialty Start Date End Date NameIsaías MD [address] [place] [address] PCP - General Family Medicine 03/09/18 documented as of this encounter
--- OUTSIDE RECORDS SUMMARY | 2024-04-22 11:57 | XMS_ITS | Encounter Summary ---
Author Organization [employer] [facility] Address 75 [facility] 7t [place] [address] Care Team Providers Care Wood Polisher Name Role Phone Name, Isaías CALVERT Primary Care Provider [phone] Reason for Visit * Reason Onset Date Comments Med Refill 12/23/2022 Encounter Details Date Type Department Care Team (Late st Contact Info) Description 12/23/2022 Refill [facility] MEDICINE 230 [place], [place] [phone] Name, MD Isaías 230 [place] [address] Chronic low back pain, unspecified back pain [...] Description 05/17/2024 3:30 PM EDT Office Visit [address] [address] Name, MD Isaías [address] [place] [address] 05/31/2024 11:00 AM EDT Office Visit [address] [address] documented as of this encounter Goals Goal [...] documented as of this encounter Care Teams Wood Polisher Relationship Specialty Start Date End Date Name, MD Isaías [address] [place] [address] PCP - General Family Medicine 03/09/18 documented as of this encounter
--- OUTSIDE RECORDS SUMMARY | 2024-04-22 11:57 | XMS_ITS ---
Care Plan Created on: April 22, 2024 Marina Shepherd : 1980 Sex: Female Author Organization [employer] Address 75 [facility] 7t [place] [address] Care Team Providers Care Burrer Marker Axle Name Role Phone Name, Isaías CALVERT Primary Care Provider [phone] Active Problems Problem Noted Date Diagnosed Date FPC current use of opiate analgesic 2023 Overview (04/10/2024): Medication: oxycodone 5mg Q12H PRN Indication: chronic low back pain, hx of lumbar surgery Last INLETTER Agreement: 04/05/24 Tier II: INLETTER visit every 3 months (Dr. White, Mar [...] device) in place 09/04/2022 12/01/2023 Overview (09/04/2022): Lillet IUD in place 11/2021 Additional Health Concerns Active Problems Noted Date Diagnosed Date Patient in chronic opioid therapy 05/29/2022 Goals Goal Patient Goal Type Associated Problems Recent Progress Patient-Stated? Author Help patient manage chronic opioid therapy Care Plan Patient in chronic opioid therapy No Natacha, Peggy, RN Improve Sleep Habits Care Plan Patient in chronic opioid therapy Peggy Dominguez, RN Interventions Care Plan Interventions Intervention Entry Date Outcome Create sleep tracker to monitor sleeping patients 05/29/2022 Provide education on healthy sleep habits 05/29/2022 Related Goals and Interventions Goal Associated Intervent ions Improve Sleep Habits Create sleep tracke r to monitor sleeping patients; Provide education on healthy sleep habits
--- OUTSIDE RECORDS SUMMARY | 2024-04-22 11:57 | XMS_ITS | Encounter Summary ---
Author Organization [employer] Address 75 [facility] 7t [place] [address] Care Team Providers Care Oxygen Equipment Preparer Name Role Phone NameIsaías MD Primary Care Provider [phone] Reason for Visit * Reason Onset Date Comments Med Change Request Prior Authorization 06/09/2023 Zepbound/Tir zepatide Encounter Details Date Type Department Care Team ([facility] st Contact Info) Description 06/09/2023 Refill [facility] MEDICINE 230 [place], [place] [phone] Name, MD Isaías 230 [place] [address] Social History Tobacco Use Types Packs/Day Years [...] encounter Miscellaneous Notes * Telephone Encounter - Lashanda Calle - 06/10/2023 1:11 PM EDT PA req form generated and placed on PCP desk for review and signature. Once signed will fax to and scan into chart under media. documented in this encounter Plan of Treatment Upcoming Encounters Date Type Department Care Team (Late st Contact Info) Description 05/17/2024 3:30 PM EDT Office Visit [address] [address] Name, MD Isaías [address] [place] [address] 05/31/2024 11:00 AM EDT Office Visit [address] [address] documented as of this encounter Goals Goal [...] documented as of this encounter Care Teams Oxygen Equipment Preparer Relationship Specialty Start Date End Date Name, MD Isaías 230 [place] [address] PCP - General Family Medicine 03/09/18 documented as of this encounter
--- OUTSIDE RECORDS SUMMARY | 2024-04-22 11:57 | XMS_ITS | Encounter Summary ---
Author Organization [employer] Address 75 [facility] 7t [place] [address] Care Team Providers Care Public Information Director Name Role Phone Name, Isaías CALVERT Primary Care Provider [phone] Reason for Visit * Reason Onset Date Comments Med Refill 03/23/2024 Encounter Details Date Type Department Care Team (Late st Contact Info) Description 03/23/2024 Refill [facility] MEDICINE 230 [place], [place] [phone] Name, MD Isaías 230 [place] [address] Social History Tobacco Use Types Packs/Day Years [...] Description 05/17/2024 3:30 PM EDT Office Visit [address] [address] NameIsaías MD [address] [place] [address] 05/31/2024 11:00 AM EDT Office Visit [address] [address] documented as of this encounter Goals Goal [...] documented as of this encounter Care Teams Public Information Director Relationship Specialty Start Date End Date NameIsaías MD [address] [place] [address] PCP - General Family Medicine 03/09/18 documented as of this encounter
--- OUTSIDE RECORDS SUMMARY | 2024-04-22 11:57 | XMS_ITS | Encounter Summary ---
Author Organization [employer] Address 75 [facility] 7t [place] [address] Care Team Providers Care Superintendent Electric Power Name Role Phone Name, Isaías CALVERT Primary Care Provider [phone] Reason for Visit * Reason Onset Date Comments Medication Question 03/25/2024 Encounter Details Date Type Department Care Team ([facility] st Contact Info) Description 03/25/[address] [facility] MEDICINE 230 [place] [address] Name, MD Isaías 230 [place] [address] Medication Question Social History Tobacco Use Types Packs/Day Years [...] encounter Miscellaneous Notes * Telephone Encounter - Gemini Jj RN - 03/25/2024 9:36 AM EST TC placed to pharmacy to determine if they have received a PA for Semaglutide- Weight Management (Wegovy) 1MG/0.5ML. Pharmacy states a PA has not been received and is still needed. * Telephone Encounter - Skye Frey - 03/25/2024 8:29 AM EST Tc from pt requesting PA status (Wegovy). documented in this encounter Plan of Treatment Upcoming Encounters Date Type Department Care Team (Late st Contact Info) Description 05/17/2024 3:30 PM EDT Office Visit [facility] MEDICINE [address] [place] [address] Name, MD Isaías [address] [place] [address] 05/31/2024 11:00 AM EDT Office Visit [facility] MEDICINE 230 [place] [address] documented as of this encounter Goals Goal [...] documented as of this encounter Care Teams Superintendent Electric Power Relationship Specialty Start Date End Date Name, MD Isaías 230 [place] [address] PCP - General Family Medicine 03/09/18 documented as of this encounter
--- OUTSIDE RECORDS SUMMARY | 2024-04-22 11:57 | XMS_ITS | Encounter Summary ---
Author Organization [employer] Address 75 [facility] 7t [place] [address] Care Team Providers Care Community Manager Name Role Phone Name, Isaías CALVERT Primary Care Provider [phone] Reason for Visit * Reason Onset Date Comments Med Refill 01/26/2024 Encounter Details Date Type Department Care Team (Late st Contact Info) Description 01/26/2024 Refill [facility] MEDICINE 230 [place], [place] [phone] Name, MD Isaías 230 [place] [address] Chronic low back pain, unspecified back pain [...] the past 12 months, has t he [employer], gas, oil or water company threatened to [...] Description 05/17/2024 3:30 PM EDT Office Visit [address] [address] NameIsaías MD [address] [place] [address] 05/31/2024 11:00 AM EDT Office Visit [address] [address] documented as of this encounter Goals Goal [...] documented as of this encounter Care Teams Community Manager Relationship Specialty Start Date End Date Isaías White MD 230 [place] [address] PCP - General Family Medicine 03/09/18 documented as of this encounter
--- OUTSIDE RECORDS SUMMARY | 2024-04-22 11:57 | XMS_ITS | Encounter Summary ---
Author Organization [employer] Address 75 [facility] 7t [place] [address] Care Team Providers Care Carton Wrapper Name Role Phone Name, Isaías CALVERT Primary Care Provider [phone] Reason for Visit * Reason Onset Date Comments Med Refill 03/25/2024 Encounter Details Date Type Department Care Team ([facility] st Contact Info) Description 03/25/2024 Telephone [facility] MEDICINE 230 [place] [address] Name, MD Isaías 230 [place] [address] Med Refill Social History Tobacco Use Types Packs/Day Years [...] Encounter - Peggy Manzano RN - 03/25/2024 8:35 AM EST Duplicate request, was sent to covering PCP yesterday, awaiting her response. * Telephone Encounter - Skye Frey - 03/25/2024 8:26 AM EST TC from pt requesting medication refill. Medications needing refill : oxyCODONE (Roxicodone) 5 MG immediate release tablet () To be sent to: [facility]/pharmacy #[id number] documented in this encounter Plan of Treatment Upcoming Encounters Date Type Department Care Team ([facility] st Contact Info) Description 05/17/2024 3:30 PM EDT Office Visit [facility] MEDICINE 230 [place] [address] Name, MD Isaías 230 [place] [address] 05/31/2024 11:00 AM EDT Office Visit [facility] MEDICINE 230 [place] [address] documented as of this encounter Goals Goal [...] documented as of this encounter Care Teams Carton Wrapper Relationship Specialty Start Date End Date Name, MD Isaías 230 [place] [address] PCP - General Family Medicine 03/09/18 documented as of this encounter
--- OUTSIDE RECORDS SUMMARY | 2024-04-22 11:57 | XMS_ITS | Encounter Summary ---
Author Organization [employer] Address 75 [facility] 7t [place] [address] Care Team Providers Care Corn Cutter Name Role Phone Name, Isaías CALVERT Primary Care Provider [phone] Reason for Visit * Reason Onset Date Comments Med Refill 09/24/2023 Encounter Details Date Type Department Care Team ([facility] st Contact Info) Description 09/24/2023 Telephone [facility] MEDICINE 230 [place] [address] Name, MD Isaías 230 [place] [address] Med Refill Social History Tobacco Use Types [...] encounter Miscellaneous Notes * Telephone Encounter - Koby Smith RN - 09/24/2023 1:30 PM EDT [place] pat checked on 09/24/2023, last time oxycodone 5 mg immediate release tablet filled at [facility], on 08/24 for qty - 56 for 28 days supply. [employer] [facility] for approval. * Telephone Encounter - Fermín Faria - 09/24/2023 8:54 AM EDT TC from pt requesting medication refill. Medications needing refill : oxyCODONE (Roxicodone) 5 MG immediate release tablet To be sent to: [facility]/pharmacy #[id number] - [address] documented in this encounter Plan of Treatment Upcoming Encounters Date Type Department Care Team ([facility] Contact Info) Description 05/17/2024 3:30 PM EDT Office Visit [facility] MEDICINE [address] [place] [address] Name, MD Isaías [address] [place] [address] 05/31/2024 11:00 AM EDT Office Visit [facility] MEDICINE [address] [place] [address] documented as of this encounter Goals Goal [...] documented as of this encounter Care Teams Corn Cutter Relationship Specialty Start Date End Date Name, MD Isaías 230 [place] [address] PCP - General Family Medicine 03/09/18 documented as of this encounter
--- OUTSIDE RECORDS SUMMARY | 2024-04-22 11:57 | XMS_ITS | Encounter Summary ---
Author Organization [employer] Address 75 [facility] 7t [place] [address] Care Team Providers Care Children'S Entertainer Name Role Phone Name, Isaías CALVERT Primary Care Provider [phone] Reason for Visit * Reason Onset Date Comments Med Refill 07/24/2023 Encounter Details Date Type Department Care Team (Late st Contact Info) Description 07/24/2023 Refill [facility] [address] [place], [place] [phone] Name, MD Isaías 230 [place] [address] Chronic low back pain, unspecified back pain [...] Description 05/17/2024 3:30 PM EDT Office Visit [address] [address] NameIsaías MD [address] [place] [address] 05/31/2024 11:00 AM EDT Office Visit [address] [address] documented as of this encounter Goals Goal [...] documented as of this encounter Care Teams Children'S Entertainer Relationship Specialty Start Date End Date Isaías White MD [address] [place] [address] PCP - General Family Medicine 03/09/18 documented as of this encounter
--- OUTSIDE RECORDS SUMMARY | 2024-04-22 11:57 | XMS_ITS | Encounter Summary ---
Author Organization [employer] Address 75 [facility] 7t [place] [address] Care Team Providers Care Assayer Helper Name Role Phone Name, Isaías CALVERT Primary Care Provider [phone] Reason for Visit * Reason Onset Date Comments Medication Question 03/23/2024 Encounter Details Date Type Department Care Team ([facility] st Contact Info) Description 03/23/2024 Telephone [facility] MEDICINE 230 [place] [address] Lizzette Bernstein RN Medication Question Social History Tobacco Use Types [...] encounter Miscellaneous Notes * Telephone Encounter - Lizzette Bernstein RN - 03/29/2024 11:50 AM EST Called pt who stated that she has again the norethindrone Rx from another doctor at [facility] and confirmed it was not prescribed by Alina Sumner CNM. Advised her per Alina to follow up with [facility] gynecology from now on for questions or concerns related to this medication given that she has seen that office more regularly. Pt verbalized understanding, no further questions. * Telephone Encounter - Lizzette Bernstein RN - 03/25/2024 2:39 PM EST Telephone call to pt using [facility] operator and truck driver #[id number]. To advise to obtain norethindrone Rx from [facility] office. Call went to voicemail however mailbox full , unable to leave message. Will task to call again. * Telephone Encounter - Alina Sumner CNM - 03/25/2024 2:04 PM EST Noted. She should followup with that office for continued rx as they have been seeing her regularly. Thanks! * Telephone Encounter - Fatimah Raymond RN - 03/25/2024 10:55 AM EST Telephone call returned to patient in regards to below message. Advised patient of message. Patientstating she needs norethindrone as she went yesterday to [facility] appointment and got IUD removed. Doctor told her to take the medication she was on before. Patient verbalized understanding and denied having any further questions or concerns at this time. Patient to follow up as needed. * Telephone Encounter - Lizzette Bernstein RN - 03/24/2024 1:05 PM EST Telephone call to pt using [employer] operator and truck driver Carlos #[id number] to advise per CNDeep Sumnerthat she should not be taking norethindrone anymore, Rx was cancelled. Per [facility] note from 01/18/24, Abnormal uterine bleeding (N93.9): Stop Aygestin now that Liletta is in place. Will task to call again. * Telephone Encounter - Alina Sumner CNM - 03/24/2024 8:22 AM EST She shouldn't need norethindrone anymore. May stop and followup with [facility] as planned. Thanks! * Telephone Encounter - Lizzette Bernstein RN - 03/23/2024 3:33 PM EST Per [facility] records, pt had IUD inserted on 01/18/24 without complication and per note was advisedto follow up in 6 months (around July). Will clarify with provider about norethindrone Rx since not on home med list at IUD insertion visit. -- Alina Sumner CNM I sent in a 90 day supply of Marina's norethindrone since pharmacy wanted 90 d supply. Per last [facility] notes, plan was for IUD insertion at their office. Please make sure she has followup with them. Thanks! documented in this encounter Plan of Treatment Upcoming Encounters Date Type Department Care Team (Late st Contact Info) Description 05/17/2024 3:30 PM EDT Office Visit [address] [address] Name, MD Isaías [address] [place] [address] 05/31/2024 11:00 AM EDT Office Visit [address] [address] documented as of this encounter Goals Goal [...] documented as of this encounter Care Teams Assayer Helper Relationship Specialty Start Date End Date Name, MD Isaías [address] [place] [address] PCP - General Family Medicine 03/09/18 documented as of this encounter
--- OUTSIDE RECORDS SUMMARY | 2024-04-22 11:57 | XMS_ITS | Encounter Summary ---
Author Organization [employer] Address 75 [facility] 7t [place] [address] Care Team Providers Care Driver Helper Name Role Phone Name, Isaías CALVERT Primary Care Provider [phone] Reason for Visit * Reason Comments Med Refill Encounter Details Date Type Department Care Team ([facility] st Contact Info) Description 03/09/2024 Refill [facility] MEDICINE 230 [place], [place] [phone] [facility] 230 [place], [place] [phone] Vitamin D deficiency Social History Tobacco Use [...] Description 05/17/2024 3:30 PM EDT Office Visit [address] [address] Name, MD Isaías [address] [place] [address] 05/31/2024 11:00 AM EDT Office Visit [address] [address] documented as of this encounter Goals Goal [...] documented as of this encounter Care Teams Driver Helper Relationship Specialty Start Date End Date NameIsaías MD [address] [place] [address] PCP - General Family Medicine 03/09/18 documented as of this encounter
--- OUTSIDE RECORDS SUMMARY | 2024-04-22 11:57 | XMS_ITS | Encounter Summary ---
Author Organization [email or web address] [facility] Address [address] [place] [address] 7t [place] [address] Care Team Providers Care Tube Bender Name Role Phone Name, Isaías CALVERT Primary Care Provider [phone] Reason for Visit * Reason Comments Med Refill Encounter Details Date Type Department Care Team (Late Contact Info) Description 09/24/2022 Refill [facility] MEDICINE 230 [place], [place] [phone] Name, MD Isaías 230 [place] [address] Chronic pain syndrome Social History Tobacco Use [...] Description 05/17/2024 3:30 PM EDT Office Visit [address] [address] Name, [place] [address] 05/31/2024 11:00 AM EDT Office Visit [address] [address] documented as of this encounter Goals Goal [...] documented as of this encounter Care Teams Tube Bender Relationship Specialty Start Date End Date Name, MD Isaías [address] [place] [address] PCP - General Family Medicine 03/09/18 documented as of this encounter
== END 2024-04-22 11:01 | disposition home or self-care (01) ==
LOC: HO.MAMMO 11:00
PROVIDERS: PCP Internal Medicine Geriatric Medicine; Visit Provider Internal Medicine Geriatric Medicine
DX: Z12.31 Encounter for screening mammogram for malignant neoplasm of breast (principal)
CPT/HCPCS: 77063; 77067

== ENCOUNTER → 2024-04-22 11:30 | Outpatient (BNV) | payer MEDICAID, SELFPAY | PROVIDERS: PCP Internal Medicine Geriatric Medicine; Visit Provider Internal Medicine | DX: Z12.31 Encounter for screening mammogram for malignant neoplasm of breast (principal) | CPT/HCPCS: 77063; 77067 ==

== ENCOUNTER 2024-05-23 07:59 | Outpatient (REF) | payer MEDICAID, SELFPAY ==
--- OUTSIDE RECORDS SUMMARY | 2024-05-23 08:04 | XMS_ITS | Encounter Summary ---
Author Organization [employer] Address 75 [facility] 7t [place] [address] Care Team Providers Care Mortgage Consultant Name Role Phone Name, Isaías CALVERT Primary Care Provider [phone] Reason for Visit * Reason Onset Date Comments Med Refill 04/26/2024 Encounter Details Date Type Department Care Team (Late st Contact Info) Description 04/26/2024 Refill [facility] MEDICINE 230 [place] [address] Name, MD Isaías 230 [place] [address] Chronic low back pain, unspecified back pain [...] the past 12 months, has t he [employer], gas, oil or water company threatened to [...] encounter Miscellaneous Notes * Telephone Encounter - Alana Luna - 04/26/2024 8:45 AM EST TC from pt requesting medication refill. Medications needing refill : oxyCODONE (Roxicodone) 5 MG immediate release tablet To be sent to: [facility]/pharmacy #[id number] documented in this encounter Plan of Treatment Upcoming Encounters Date Type Department Care Team ([facility] st Contact Info) Description 05/31/2024 11:00 AM EDT Office Visit [facility] MEDICINE [address] [place] [address] documented as of this encounter Goals Goal [...] documented as of this encounter Care Teams Mortgage Consultant Relationship Specialty Start Date End Date Name, MD Isaías 230 [place] [address] PCP - General Family Medicine 03/09/18 documented as of this encounter
--- OUTSIDE RECORDS SUMMARY | 2024-05-23 08:04 | XMS_ITS | Encounter Summary ---
Author Organization [employer] [facility] Address [address] [facility] [address] [place] [address] Care Team Providers Care Tool Maker Name Role Phone Name, Isaías CALVERT Primary Care Provider [phone] Reason for Visit * Reason Comments Follow-up Encounter Details Date Type Department Care Team ([facility] st Contact Info) Description 05/17/2024 3:30 PM EDT Office Visit [facility] [address] [place], [place] [phone] Name, MD Isaías [address] [place] [address] Obesity (BMI 30-39.9) (Primary Dx); Bariatric surgery status; AN (acanthosis nigricans); History of anemia Social History Tobacco Use Types Packs/Day Years [...] is your housing situation today? I have севтлана isabel 06/09/[address] [...] the past 12 months, has t he [employer], gas, oil or water company threatened to [...] AM EDT documented as of this encounter Last Filed Vital Signs Vital Sign Reading Time Taken Comments Blood Pressure 151/78 05/17/2024 3:15 PM EDT Pulse 81 05/17/2024 3:15 PM EDT Temperature 36.7 ??C (98.1 ??F) 05/17/2024 3:15 PM ED T Respiratory Rate 18 05/17/2024 3:15 PM EDT Oxygen Saturation 98% 05/17/2024 3:15 PM EDT Inhaled Oxygen Concentration - - Weight 96.5 kg (212 lb 12.8 oz) 05/17/2024 3:15 PM EDT Height - - Body Mass Index 38.92 01/11/2024 3:37 PM EST documented in this encounter Progress Notes * Isaías White MD - 05/17/2024 3:30 PM EDT Subjective Patient ID: Marina Shepherd is a 44 y.o. female who presents for Follow-up. Patient comes for a follow-up visit. She has history of obesity. She was morbidly obese in the past. She had bariatric surgery for treatment of morbid obesity several years ago. Unfortunately she regained a lot of the weight she lost after surgery. Her BMI is currently 38. She had comorbidities including chronic low back pain and prediabetes. She does not have any personal history of pancreatitis. No personal or family history of thyroid cancer. I started her on treatment with Wegovy last year.She used the medication for about 2 months and did had to stop because of insurance coverage changes. I tried her on phentermine a couple years ago but she did not tolerate the medication because of tachycardia. Review of Systems Constitutional: Negative for chills and fever. HENT: Negative for sore throat. Respiratory: Negative for cough, shortness of breath and wheezing. Cardiovascular: Negative for chest pain, palpitations and leg swelling. Gastrointestinal: Negative for abdominal pain. Skin: The patient has dark skin discoloration on the back of the neck consistent with acanthosis nigricans Visit Vitals BP (!) 151/78 Pulse 81 Temp 98.1 ??F (36.7 ??C) (Temporal) Resp 18 Wt 212 lb 12.8 oz (96.5 kg) SpO2 98% BMI 38.92 kg/m?? OB Status Having periods Smoking Status Never BSA 2.05 m?? Objective Physical Exam Constitutional: Appearance: Normal appearance. Cardiovascular: Rate and Rhythm: Normal rate and regular rhythm. Heart sounds: No murmur heard. No gallop. Pulmonary: Effort: Pulmonary effort is normal. No respiratory distress. Breath sounds: Normal breath sounds. No wheezing. Musculoskeletal: Right lower leg: No edema. Left lower leg: No edema. Neurological: Mental Status: She is alert. Assessment/Plan Diagnoses and all orders for this visit: Obesity (BMI 30-39.9) Comments: I recommend the patient evaluation with fasting blood work listed below. I recommended trial of Zepbound for weight management. We discussed the benefits and side effects of the medication. She understand that I will have to increase the dose gradually. She is encouraged to call if she has any problems with the medication. We specifically discussed GI side effects of the medication including nausea, abdominal pain, constipation or diarrhea. Orders: - Comprehensive Metabolic Panel; Future - Lipid Panel, Standard; Future Bariatric surgery status AN (acanthosis nigricans) - Hemoglobin A1c; Future - Lipid Panel, Standard; Future History of anemia - CBC auto differential; Future Other orders - Tirzepatide-Weight Management (Zepbound) 2.5 MG/0.5ML solution auto-injector; Inject 0.5 mL (2.5 mg) under the skin 1 (one) time per week. documented in this encounter Plan of Treatment Upcoming Encounters Date Type Department Care Team (Late st Contact Info) Description 05/31/2024 11:00 AM EDT Office Visit [facility] [address] [place] [address] Scheduled Orders Name Type Priority Associated Diagnoses Orde r Schedule CBC auto differential Lab Routine History of anemia Expected: 05/17/2024 (Approximate), Expires: 05/17/2025 Comprehensive Metabolic Panel Lab Routine Obesity (BMI 30-39.9) Expected: 05/17/2024 (Approximate), Expires: 05/17/2025 Hemoglobin A1c Lab Routine AN (acanthosis nigricans) Expected: 05/17/2024 (Approximate), Expires: 05/17/2025 Lipid Panel, Standard Lab Routine Obesity (BMI 30-39.9) AN (acanthosis nigricans) Expected: 05/17/2024 (Approximate), Expires: 05/17/2025 documented as of this encounter Goals Goal Patient Goal Type Associated Problems Recent Progress Patient-Stated? Author Help patient manage chronic opioid therapy Care Plan Patient in chronic opioid therapy No Peggy Manzano, RN Improve Sleep Habits Care Plan Patient in chronic opioid therapy Peggy Dominguez, RN documented as of this encounter Visit Diagnoses Diagnosis Obesity (BMI 30-39.9)- Primary Bariatric surgery status AN (acanthosis nigricans) Acquired acanthosis nigricans History of anemia Personal history of diseases of blood and blood-forming organs documented in this encounter Additional Health Concerns Active Problems Noted Date Diagnosed Date Patient in chronic opioid therapy 05/29/2022 Assessment Noted Time PHQ-9 Depression Total Score: 0 06/09/19 24 1:30 PM EDT documented as of this encounter Care Teams Tool Maker Relationship Specialty Start Date End Date Name, MD Isaías [address] [place] [address] PCP - General Family Medicine 03/09/18 documented as of this encounter
--- OUTSIDE RECORDS SUMMARY | 2024-05-23 08:04 | XMS_ITS | Encounter Summary ---
Author Organization [employer] Address [address] [facility] [address] [place] [address] Care Team Providers Care Supply Officer Name Role Phone Name, Isaías CALVERT Primary Care Provider [phone] Reason for Visit * Reason Comments Med Refill Encounter Details Date Type Department Care Team ([facility] st Contact Info) Description 06/10/2023 Refill [facility] MEDICINE [address] [place] [address] Name, MD Isaías [address] [place] [address] Vitamin D deficiency Social History Tobacco Use [...] Description 05/31/2024 11:00 AM EDT Office Visit [facility] MED[facility]INE [address] [place] [address] documented as of this encounter Goals Goal [...] documented as of this encounter Care Teams Supply Officer Relationship Specialty Start Date End Date Name, MD Isaías [address] [place] [id number] PCP - General Family Medicine 03/09/18 documented as of this encounter
--- OUTSIDE RECORDS SUMMARY | 2024-05-23 08:04 | XMS_ITS | Encounter Summary ---
Author Organization [employer] Address [address] [facility] [address] [place] [address] Care Team Providers Care Card Cleaner Name Role Phone Name, Isaías CALVERT Primary Care Provider [phone] Reason for Visit * Reason Onset Date Comments Med Refill 03/23/2024 Encounter Details Date Type Department Care Team (Late st Contact Info) Description 03/23/2024 Refill [facility] MEDICINE [address] [place], [place] [phone] Name, MD Isaías [address] [place] [address] Social History Tobacco Use Types Packs/Day Years [...] Description 05/31/2024 11:00 AM EDT Office Visit [facility] MED[facility]INE [address] [place] [address] documented as of this encounter Goals Goal [...] documented as of this encounter Care Teams Card Cleaner Relationship Specialty Start Date End Date Name, MD Isaías [address] [place] [address] PCP - General Family Medicine 03/09/18 documented as of this encounter
--- OUTSIDE RECORDS SUMMARY | 2024-05-23 08:04 | XMS_ITS | Encounter Summary ---
Author Organization [employer] Address [address] [facility] [address] [place] [address] Care Team Providers Care Appian Bpm Developer Name Role Phone Name, Isaías CALVERT Primary Care Provider [phone] Reason for Visit * Reason Comments Med Refill Encounter Details Date Type Department Care Team ([facility] st Contact Info) Description 05/18/2023 Refill [facility] MED[facility]INE [address] [place] [address] Name, MD Isaías [address] [place] [address] Vitamin D deficiency Social History Tobacco Use [...] Description 05/31/2024 11:00 AM EDT Office Visit [facility] MED[facility]INE [address] [place] [address] documented as of this encounter Goals Goal [...] documented as of this encounter Care Teams Appian Bpm Developer Relationship Specialty Start Date End Date Name, MD Isaías [address] [place] [address] PCP - General Family Medicine 03/09/18 documented as of this encounter
--- OUTSIDE RECORDS SUMMARY | 2024-05-23 08:04 | XMS_ITS | Clinical Summary ---
Author Organization [employer] Address [address] [place] [address] 7t [place] [address] Care Team Providers Care Sea Kayaking Guide Name Role Phone Name, Isaías CALVERT Primary Care Provider [phone] Allergies Active Allergy Reactions Criticality Noted Date Comments Penicillins Other 01/23/2016 Other reaction(s): Unknown Medications cholecalciferol VITAMIN D (Vitamin D-3) 50 MCG (1999) tabletIndicatio ns:Vitamin D deficiency TAKE 1 TABLET BY MOUTH EVERY DAY 90 tablet 01/25/20 24 Active omeprazole (PriLOSEC) [address] capsuleIndicati ons:Heartburn TAKE 1 CAPSULE BY MOUTH EVERY DAY BEFORE A MEAL 90 capsule 02/01/20 24 Active oxyCODONE (Roxicodone) 5 MG immediate release tabletIndicatio ns:Chronic low back pain, unspecified back pain laterality, unspecified whether sciatica present Take 1 tablet (5 mg) by mouth every 12 (twelve) hours if needed for severe pain for up to 28 days. 56 tablet 04/26/19 25 025 Active Diclofenac Sodium 1 % gelIndications: Pain in both hands APPLY 2 GRAMS TOPICALLY EVERY DAY TO BOTH HANDS 100 g 1 04/27/19 25 Active Tirzepatide-Reinaldo ght Management (Zepbound) 2.5 MG/0.5ML solution auto-injector Inject 0.5 mL (2.5 mg) under the skin 1 (one) time per week. 2 mL 05/18/19 25 025 Active Semaglutide-Reinaldo ght Management (Wegovy) 1 MG/0.5ML solution auto-injector Inject 1 mL (2 mg) under the skin every 7 (seven) days. 2 mL 03/10/19 25 025 Discontinued(Re order (will not trigger notification to Pharmacy)) Diclofenac Sodium 1 % gelIndications: Pain in both hands APPLY 2 GRAMS TOPICALLY EVERY DAY TO BOTH HANDS 100 g 1 03/24/19 25 025 Discontinued(Re order (will not trigger notification to Pharmacy)) oxyCODONE (Roxicodone) 5 MG immediate release tabletIndicatio ns:Chronic low back pain, unspecified back pain laterality, unspecified whether sciatica present Take 1 tablet (5 mg) by mouth every 12 (twelve) hours if needed for severe pain for up to 28 days. 56 tablet 03/25/19 25 025 Discontinued(Re order (will not trigger notification to Pharmacy)) Semaglutide-Reinaldo ght Management (Wegovy) 1 MG/0.5ML solution auto-injector Inject 1 mL (2 mg) under the skin every 7 (seven) days. 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 White, Mar [...] Overview (09/04/2022): Lillet IUD in place 11/2021 Encounters Date Type Department Care Team Description 05/20/2024 Population Health Risk Score [facility] () Department [address] [place] [id number] Provider, Population Health Generic 05/17/2024 3:30 PM EDT Office Visit [facility] MED[facility]INE [address] [place] [phone] Isaías White MD Obesity (BMI 30-39.9) (Primary Dx); Bariatric surgery status; AN (acanthosis nigricans); History of anemia 05/17/2024 Travel 04/27/2024 Refill [facility] MED[facility] [address] [place] [address] Afsaneh Diaz MD Pain in both hands 04/27/2024 Refill [facility] MED[facility] [address] [place] [address] Isaaís White MD Chronic low back pain, unspecified back pain laterality, unspecified whether sciatica present 04/26/2024 Refill [facility] MED[facility] [address] [place] [address] Isaías White MD Chronic low back pain, unspecified back pain laterality, unspecified whether sciatica present 04/05/2024 11:00 AM EST Office Visit [facility] [address] [place] [phone] Henna Harris, RUCHING MACHINE OPERATOR Chronic low back pain, unspecified back pain laterality, unspecified whether sciatica present (Primary Dx); skilled nursing current use of opiate analgesic; History of lumbar surgery 04/05/2024 Telephone [facility] MEDICINE [address] [place] [address] Peggy Manzano RN EDUCATIONAL RECRUITER Agreement signed today 04/05/2024 Travel 03/25/2024 Telephone [facility] [address] [place] [address] Isaías White MD Medication Question 03/25/[address] [address] Isaías White MD Med Refill 03/24/2024 Refill [facility] [address] [place] [address] Isaías White MD Chronic low back pain, unspecified back pain laterality, unspecified whether sciatica present 03/24/2024 Refill [facility] [address] [facility] [place] [address] Smiley Bustillos, CHICKEN AND FISH CLEANER Pain in both hands 03/24/2024 Orders Only [facility] [address] [facility] [place] [address] Alina Sumner, [facility] 03/23/2024 Telephone [facility] MED[facility] [address] [facility] [place] [address] Lizzette Bernstein, theology teacher Question 03/23/2024 Refill [facility] [address] [facility] [place] [address] Alina Sumner, ADEBAYO 03/23/2024 Refill [facility] [address] [facility] [place] [address] Isaías White MD 03/17/2024 Refill [facility] [address] [place] [address] Isaías White MD 03/15/2024 Telephone [facility] [address] [facility] [place] [address] Maggi Reich MA feb recall 03/09/2024 Refill [facility] [address] [facility] [place] [address] [place], [place], RUCHING MACHINE OPERATOR Vitamin D deficiency 03/08/2024 Refill [facility] [address] [place] [address] Isaías White MD 03/08/2024 Telephone [facility] MEDICINE [address] [place] [address] Isaías White MD Nurse Triage 03/04/2024 Telephone [facility] [address] [place] [address] Norma Cervantes, MARVIN 02/29/2024 Refill [facility] [address] [place] [address] Alina Sumner, ADEBAYOM 02/23/2024 Refill [facility] [address] [place] [address] Isaías White MD Chronic low back pain, unspecified back pain laterality, unspecified whether sciatica present from Last 3 Months Immunizations Name Administration [...] 12.8 oz) 05/17/2024 3:15 PM EDT Height 157.5 cm (5' 2 ) 01/11/2024 3:37 PM EST Body Mass Index 38.92 01/11/2024 3:37 PM EST Plan of Treatment Upcoming Encounters Date Type Department Care Team (Late st Contact Info) Description 05/31/2024 11:00 AM EDT Office Visit [facility] MED[facility]INE [address] [place] [address] Health Maintenance Due Date Last Done Comments HIV Screening 1980 Hepatitis C Screening 02/16/2000 Hepatitis A Vaccines (1 of 2 - Risk 2-dose series) 2001 Hepatitis B Vaccines (1 of 3 - 19+ 3-dose series) 2001 Depression Screening 06/08/2024 06/09/2023, 06/09/19 SDOH Screening 06/08/2024 06/09/2023 Alcohol/Substance Use Screening 10/11/2024 10/12/2023 Family Planning (PISQ) 10/26/2024 10/27/2023 Tobacco Screening 01/10/2025 01/11/2024 Mammogram 04/22/2026 04/22/2024, 04/18/2023 Lipid Panel 08/20/2026 08/20/2021 Cervical Cancer [...] Patient in chronic opioid therapy Peggy Dominguez, lead network engineer Procedure Name Priority Date/Time Associated Diagnosis Comments BI MAMMOGRAM SCREENING TOMOSYNTHESIS BILATERAL Routine 04/22/2024 11:05 AM EST POCT TANISHA-14 URINE DRUG SCREEN Routine 04/05/2024 1:38 PM EST Chronic low back pain, unspecified back pain laterality, unspecified whether sciatica present THINPREP IMAGING PAP AND HPV MRNA E6/E7 Routine 10/15/2023 1:19 PM EDT LIPID PANEL, STANDARD Routine 08/20/2021 10:16 AM EDT from Last 3 Months or Most Recently Relevant to Health Maintenance Results * BI Mammogram Screening Tomosynthesis Bilateral (04/22/2024 11:05 AM EST) Anatomical Region Laterality Modality Breast Bilateral Mammography 04/22/2024 11:0 5 AM EST Narrative 04/30/2024 11:53 AM EST ? [facility] ? [address] ?[place] [address] ? Mammography Report ? Signed ? Patient: Shepherd,Marina ?MR#: [id number] ? : 1980 ?Acct:[id number] ? Age/Sex: 44 / F ?ADM Date: 04/22/ ? Loc: HO.MAMMO ? Attending Dr: Isaías Name MD ? Ordering Physician: Name,Isaías MD ?Results: 1Negative ? Date of Service: 04/22/ ?Follow Up: 1 Year From Orig ?? inal Mammogram ? Procedure(s): MM tomosynthesis screening BI ?? Accession Number(s): [id number] ? cc: Name,Isaías CALVERT ? EXAMINATION: ?? MM SCREENING DIGITAL BREAST TOMOSYNTHESIS, BILATERAL ? CLINICAL INFORMATION: ? Screening. Asymptomatic. ? COMPARISON: ?? Mammography: Comparison is made with available priors ? TECHNIQUE: ?? Digital breast mammography with tomosynthesis is performed in both the ?? craniocaudal and mediolateral oblique views along with computer-aided ?? detection (CAD). ? FINDINGS: ?? The breasts are almost [...] due date for their next mammogram. ? Electronically signed by: ??Dina Garcia DO ??04/30/2024 11:50 AM EST ? Dictated By: ?Dina Garcia DO ? Signed By: ?<Electronically signed by Dina Garcia, DO in OV> ? 04/30/24 1150 ? DD/ 1105 ? TD/TT: 04/22/24 1121 ? Special Education Science Teacher: ? Procedure Note Sera, Image - 04/30/2024 [facility] [address] [place] [address] [place] [address] Mammography Report Signed Patient: Jesus ShepherdyMR#: [id number] : 1980Acct:[id number] Age/Sex: 44 / FADM Date: 04/22/24 Loc: CHRISTIAN[facility] Attending DrJoey White MD Ordering Physician: Isaías Whiteesults: 1Negative Date of Service: 04/22/24Follow Up: 1 Year From Orig inal Mammogram Procedure(s): MM tomosynthesis screening BI Accession Number(s): [id number] cc: Isaías White MD EXAMINATION: MM SCREENING DIGITAL BREAST TOMOSYNTHESIS, BILATERAL CLINICAL INFORMATION: Screening. Asymptomatic. COMPARISON: Mammography: Comparison is made with available priors TECHNIQUE: Digital breast mammography with tomosynthesis is performed in both the craniocaudal and mediolateral oblique views along with computer-aided detection (CAD). FINDINGS: The breasts are almost entirely fatty [...] target due date for their next mammogram. Electronically signed by: Dina Garcia DO 04/30/2024 11:50 AM EST Dictated By: Dina Garcia DO Signed By: <Electronically signed by Dina Garcia DO in OV> 04/30/24 1150 DD/ 1105 TD/TT: 04/22/24 1121 Special Education Science Teacher: Isaías White MD IM BI PROCEDURES Edited Result - Final * POCT TANISHA-14 Urine Drug Screen (04/05/2024 1:38 PM EST) Oxycodone Screen, Urine Positive Urine Urine specimen obtained by clean catch procedure / Unknown 04/05/2024 1:38 PM EST Peggy Dwyer RN - 04/05/2024 1:38 PM EST UTOX cup Lot#[id number] Exp. 12/01/25 Internal Pass Control Henna Harris RUCHING MACHINE OPERATOR POINT OF CARE TEST ENTER/EDIT ORDERABLES Final Result * ThinPrep Imaging Pap and HPV mRNA E6/E7 (10/15/2023 1:19 PM EDT) HPV nRNA E6/E7 Not Detected Not Detected [facility] Comment:Methodology: Transcr iption-Mediated AmplificationThis assay detects E6/E7 viral messenger RNA (mRNA) from 14high-risk HPV types (16,18,31,33,35,39,45,51,52,56,58,59,66,68).Cervical sources are required for HPV testing.If a vaginal source from a patient who has had atotal hysterectomy with removal of cervix wassubmitted, please contact the testing laboratoryfor alternative testing options.For additional information, please refer tohttp://education.[employer]/faq/VYM226k8(This link if provided for information/educational purposes only.)THIS TEST WAS PERFORMED AT:[facility] [address] [address]PIYNOLANDON MUNSON MD SOURCE: SEE NOTE [facility] Comment:None given Report Status: [facility] Clinical Information: SEE NOTE [facility] Comment:None given LMP: SEE NOTE [facility] Comment:NONE GIVEN Prev. PAP: SEE NOTE [facility] Comment:NONE GIVEN Prev. BX: SEE NOTE [facility] Comment:NONE GIVEN Statement Of Adequacy: SEE NOTE [facility] Comment:Satisfactory for flory luation.Endocervical/transformation zone componentpresent. General Categorization: [facility] Interpretation/Result: SEE NOTE [facility] Comment:Cytology Results: Ne gative for intraepitheliallesion or malignancy. Cytology Comment SEE NOTE [facility] Comment:This Pap test has be en evaluated with computerassisted technology. Certified Prosthetist/Orthotist: SEE NOTE [facility] Comment:MSM, CT(ASCP)CT scre ening location: [place] [address] Review Certified Prosthetist/Orthotist: [facility] Pathologist [facility] PAP Infection [facility] See Note SEE [facility] Comment:EXPLANATORY NOTE:The Pap is a screening test for cervical cancer. It isnot a diagnostic test and is subject to false negativeand false positive results. It is most reliable when asatisfactory sample, regularly obtained, is submittedwith relevant clinical findings and history, and whenthe Pap result is evaluated along with historic andcurrent clinical information. 10/15/2023 1:19 PM EDT 10/15/2023 4:06 PM EDT Narrative [facility] - 10/20/2023 1:44 PM EDT SEE SCANNED RESULTS IN EMR us Alina Sumner [facility] PATHOLOGY ORDERABLES Final Result [facility] [address] [place] [address] [phone] * LIPID PANEL, STANDARD (08/20/2021 10:16 AM EDT) Chol/HDLC Ratio 3.1 <5.0 (calc) [facility] Cholesterol, Total 156 <200 mg/dL [facility] HDL Cholesterol 50 > OR = 50 mg/dL [facility] LDL Cholesterol 87 mg/dL (calc) [facility] Comment: Reference range: <100 ?? Desirable range <100 mg/dL for primary prevention; ?? <70 mg/dL for patients with CHD or diabetic patients ?? with > or = 2 CHD risk factors. ?? LDL-C is now calculated using the Salomon-Sariah ?? calculation, which is a validated novel method providing ?? better accuracy than the Friedewald equation in the ?? estimation of LDL-C. ?? Salomon QUIÑONES et al. ALINA. 2013;310(19): 5812-8425 ?? (http://education.[employer]/faq/YTU655) Non-HDL Cholesterol 106 <130 mg/dL (calc) [facility] Comment: For patients with diabetes plus 1 major ASCVD risk ?? factor, treating to a non-HDL-C goal of <100 mg/dL ?? (LDL-C of <70 mg/dL) is considered a therapeutic ?? option. Triglycerides 95 <150 mg/dL [facility] 08/20/2021 10:1 6 AM EDT us Isaías Name LAB BLOOD ORDERABLES Final Resul t [facility] [address] from Last 3 Months or Most Recently Relevant to Health Maintenance Additional Health Concerns Active Problems Noted Date Diagnosed Date Patient in chronic opioid therapy 05/29/2022 Insurance [facility] C3 Care Teams Sea Kayaking Guide Relationship Specialty Start Date End Date Name, MD Isaías [address] [place] [address] PCP - General Family Medicine 03/09/18
--- OUTSIDE RECORDS SUMMARY | 2024-05-23 08:04 | XMS_ITS | Encounter Summary ---
Author Organization [employer] [facility] Address [address] [place] [address] 7t [place] [address] Care Team Providers Care Pecan Gatherer Name Role Phone Name, Isaías CALVERT Primary Care Provider [phone] Reason for Visit * Reason Comments Med Refill Encounter Details Date Type Department Care Team ([facility] Contact Info) Description 08/27/2022 Refill [facility] MEDICINE [address] [place], [place] [phone] Henna Harris FNP [address] [place], [place] [phone] Chronic pain syndrome Social History Tobacco Use [...] Upcoming Encounters Date Type Department Care Team ([facility] Contact Info) Description 05/31/2024 11:00 AM EDT Office Visit [facility] [address] [place], [place] [phone] documented as of this encounter Goals Goal [...] documented as of this encounter Care Teams Pecan Gatherer Relationship Specialty Start Date End Date Name, MD Isaías [address] [place] [phone] PCP - General Family Medicine 03/09/18 documented as of this encounter
--- OUTSIDE RECORDS SUMMARY | 2024-05-23 08:04 | XMS_ITS | Encounter Summary ---
Author Organization [employer] [facility] Address [address] [place] [address] 7t [place] [address] Care Team Providers Care Airport Sales Agent Name Role Phone Name, Isaías CALVERT Primary Care Provider [phone] Reason for Visit * Reason Comments Med Refill Encounter Details Date Type Department Care Team ([facility] Contact Info) Description 09/24/2022 Refill [facility] MEDICINE [address] [place], [place] [phone] Name, MD Isaías [address] [place] [address] Chronic pain syndrome Social History Tobacco Use [...] Upcoming Encounters Date Type Department Care Team ([facility] Contact Info) Description 05/31/2024 11:00 AM EDT Office Visit [facility] MEDICINE [address] [place] [address] documented as of this encounter Goals Goal [...] documented as of this encounter Care Teams Airport Sales Agent Relationship Specialty Start Date End Date Name, MD Isaías [address] [place] [address] PCP - General Family Medicine 03/09/18 documented as of this encounter
--- OUTSIDE RECORDS SUMMARY | 2024-05-23 08:04 | XMS_ITS | Encounter Summary ---
Author Organization [employer] Address [address] [facility] 7t [place] [address] Care Team Providers Care Gang Mower Operator Name Role Phone Name, Isaías CALVERT Primary Care Provider [phone] Reason for Visit * Reason Onset Date Comments Med Refill 07/24/2023 Encounter Details Date Type Department Care Team (Late st Contact Info) Description 07/24/2023 Refill [facility] [address] [place], [place] [phone] Name, MD Isaías [address] [place] [address] Chronic low back pain, unspecified back pain [...] Description 05/31/2024 11:00 AM EDT Office Visit [facility] MED[facility] [address] [place] [address] documented as of this encounter Goals Goal [...] documented as of this encounter Care Teams Gang Mower Operator Relationship Specialty Start Date End Date Name, MD Isaías [address] [place] [address] PCP - General Family Medicine 03/09/18 documented as of this encounter
--- OUTSIDE RECORDS SUMMARY | 2024-05-23 08:04 | XMS_ITS | Encounter Summary ---
Author Organization [employer] [facility] Address [address] [facility] 7t [place] [address] Care Team Providers Care Electronic Plotting System Operator Name Role Phone Name, Isaías CALVERT Primary Care Provider [phone] Reason for Visit * Reason Onset Date Comments Med Refill 12/23/2022 Encounter Details Date Type Department Care Team (Late st Contact Info) Description 12/23/2022 Refill [facility] MEDICINE [address] [place], [place] [phone] Name, MD Isaías [address] [place] [address] Chronic low back pain, unspecified back pain [...] Description 05/31/2024 11:00 AM EDT Office Visit [facility] MEDICINE [address] [place] [address] documented as of this encounter Goals Goal [...] documented as of this encounter Care Teams Electronic Plotting System Operator Relationship Specialty Start Date End Date Name, MD Isaías [address] [place] [address] PCP - General Family Medicine 03/09/18 documented as of this encounter
--- OUTSIDE RECORDS SUMMARY | 2024-05-23 08:04 | XMS_ITS | Encounter Summary ---
Author Organization [employer] [facility] Address [address] [facility] 7t [place] [address] Care Team Providers Care Hall Porter Name Role Phone Name, Isaías CALVERT Primary Care Provider [phone] Reason for Visit * Reason Onset Date Comments Med Refill 05/26/2023 Encounter Details Date Type Department Care Team (Late st Contact Info) Description 05/26/2023 Refill [facility] MEDICINE [address] [place] [address] Name, MD Isaías [address] [place] [address] Chronic low back pain, unspecified back pain [...] Description 05/31/2024 11:00 AM EDT Office Visit [facility] [address] [place] [address] documented as of this encounter Goals Goal [...] documented as of this encounter Care Teams Hall Porter Relationship Specialty Start Date End Date Name, MD Isaías [address] [place] [address] PCP - General Family Medicine 03/09/18 documented as of this encounter
--- OUTSIDE RECORDS SUMMARY | 2024-05-23 08:04 | XMS_ITS | Encounter Summary ---
Author Organization [employer] Address [address] [facility] 7t [place] [address] Care Team Providers Care Stage Rigger Name Role Phone Name, Isaías CALVERT Primary Care Provider [phone] Reason for Visit * Reason Onset Date Comments Medication Question 03/25/2024 Encounter Details Date Type Department Care Team ([facility] st Contact Info) Description 03/25/2024 Telephone [facility] MEDICINE [address] [place] [address] Name, MD Isaías [address] [place] [address] Medication Question Social History Tobacco Use Types [...] Description 05/31/2024 11:00 AM EDT Office Visit [facility] MEDICINE [address] [place] [address] documented as of this encounter Goals Goal [...] documented as of this encounter Care Teams Stage Rigger Relationship Specialty Start Date End Date Name, MD Isaías [address] [place] [address] PCP - General Family Medicine 03/09/18 documented as of this encounter
--- OUTSIDE RECORDS SUMMARY | 2024-05-23 08:04 | XMS_ITS | Encounter Summary ---
Author Organization [employer] [facility] Address [address] [place] [address] 7t [place] [address] Care Team Providers Care Regional Sales Executive Name Role Phone Name, Isaías CALVERT Primary Care Provider [phone] Reason for Visit * Reason Onset Date Comments Med Refill 09/25/2022 Encounter Details Date Type Department Care Team (Late st Contact Info) Description 09/25/2022 Refill [facility] MEDICINE [address] [place], [place] [phone] Name, MD Isaías [address] [place] [address] Chronic pain syndrome Social History Tobacco Use [...] Department Care Team (Late Contact Info) Description 05/31/2024 11:00 AM EDT Office Visit [facility] [address] [facility] [place] [address] documented as of this encounter Goals Goal [...] documented as of this encounter Care Teams Regional Sales Executive Relationship Specialty Start Date End Date Name, MD Isaías [address] [place] [address] PCP - General Family Medicine 03/09/18 documented as of this encounter
--- OUTSIDE RECORDS SUMMARY | 2024-05-23 08:04 | XMS_ITS | Encounter Summary ---
Author Organization [employer] Address [address] [facility] 7t [place] [address] Care Team Providers Care Snow Blower Name Role Phone Name, Isaías CALVERT Primary Care Provider [phone] Reason for Visit * Reason Onset Date Comments Med Refill 03/17/2024 Encounter Details Date Type Department Care Team (Late st Contact Info) Description 03/17/2024 Refill [facility] MEDICINE [address] [place], [place] [phone] Name, MD Isaías [address] [place] [address] Social History Tobacco Use Types Packs/Day Years [...] Description 05/31/2024 11:00 AM EDT Office Visit [facility] MEDICINE [address] [place] [address] documented as of this encounter Goals Goal [...] documented as of this encounter Care Teams Snow Blower Relationship Specialty Start Date End Date Name, MD Isaías [address] [place] [address] PCP - General Family Medicine 03/09/18 documented as of this encounter
--- OUTSIDE RECORDS SUMMARY | 2024-05-23 08:04 | XMS_ITS | Encounter Summary ---
Author Organization [employer] Address [address] [facility] 7t [place] [address] Care Team Providers Care Automotive Tire Worker Name Role Phone Name, Isaías CALVERT Primary Care Provider [phone] Reason for Visit * Reason Onset Date Comments Med Refill 09/24/2023 Encounter Details Date Type Department Care Team ([facility] st Contact Info) Description 09/24/2023 Telephone [facility] MEDICINE [address] [place] [address] Name, MD Isaías [address] [place] [address] Med Refill Social History Tobacco Use Types [...] 5 mg immediate release tablet filled at [facility], on 08/24 for qty - 56 for 28 days supply. [employer]. [facility] for approval. * Telephone Encounter - Fermín Faria - 09/24/2023 8:54 AM EDT TC from pt requesting medication refill. Medications needing refill : oxyCODONE (Roxicodone) 5 MG immediate release tablet To be sent to: [facility]/pharmacy #[id number] documented in this encounter Plan of Treatment Upcoming Encounters Date Type Department Care Team ([facility] Contact Info) Description 05/31/2024 11:00 AM EDT Office Visit [facility] MEDICINE [address] [place] [phone] documented as of this encounter Goals Goal [...] documented as of this encounter Care Teams Automotive Tire Worker Relationship Specialty Start Date End Date Name, MD Isaías [address] [place] [address] PCP - General Family Medicine 03/09/18 documented as of this encounter
--- OUTSIDE RECORDS SUMMARY | 2024-05-23 08:04 | XMS_ITS | Encounter Summary ---
Author Organization [employer] Address [address] [facility] 7t [place] [address] Care Team Providers Care Hotel Lobby Concierge Name Role Phone NameIsaías MD Primary Care Provider [phone] Reason for Visit * Reason Onset Date Comments Med Change Request Prior Authorization 06/09/2023 Zepbound/Tir zepatide Encounter Details Date Type Department Care Team ([facility] st Contact Info) Description 06/09/2023 Refill [facility] MEDICINE [address] [place], [place] [phone] Name, MD Isaías [address] [place] [address] Social History Tobacco Use Types Packs/Day Years [...] encounter Miscellaneous Notes * Telephone Encounter - aLshanda Calle - 06/10/2023 1:11 PM EDT PA req form generated and placed on PCP desk for review and signature. Once signed will fax to and scan into chart under media. documented in this encounter Plan of Treatment Upcoming Encounters Date Type Department Care Team (Late st Contact Info) Description 05/31/2024 11:00 AM EDT Office Visit [facility] MEDICINE [address] [place] [address] documented as of this encounter Goals Goal [...] documented as of this encounter Care Teams Hotel Lobby Concierge Relationship Specialty Start Date End Date Name, MD Isaías [address] [place] [address] PCP - General Family Medicine 03/09/18 documented as of this encounter
--- OUTSIDE RECORDS SUMMARY | 2024-05-23 08:04 | XMS_ITS | Clinical Summary ---
Author Organization [facility] Address [address] [place] [address] Phone Care Team Providers Care Application Packaging Consultant Name Role Phone Name, Isaías CALVERT Primary Care Provider [phone] Allergies Active Allergy Reactions Criticality Noted Date Comments Penicillin Rash Medium 03/01/2024 Medications cetirizine (ZyrTEC) 10 mg tablet Take 1 tablet (10 mg total) by mouth 1 (one) time each day for 10 days. 10 each 03/01/2024 Active Active Problems No known active problems Encounters Date Type Department Care Team Description 03/01/2024 5:54 PM EST - 03/01/2024 7:07 PM EST Emergency [facility] Emergency [address] [place] [address] Diffuse urticaria (Primary Dx) Discharge [...] patient's age to complete this topic Meningococcal B Vacine Aged Out No lo nger eligible based on patient's age to complete [...] topic Insurance MEDICAID - [place] Care Teams Application Packaging Consultant Relationship Specialty Start Date End Date Name, MD Isaías [address] [place], [place] PCP - General Internal Medicine 02/11/17
--- OUTSIDE RECORDS SUMMARY | 2024-05-23 08:04 | XMS_ITS | Encounter Summary ---
Author Organization [employer] Address 75 [facility] 7t [place] [address] Care Team Providers Care Brusher Tender Name Role Phone Name, Isaías CALVERT Primary Care Provider [phone] Encounter Details Date Type Department Care Team (Latest Contact Info) Description 05/17/2024 Travel Social History Tobacco Use Types Packs/Day [...] Description 05/31/2024 11:00 AM EDT Office Visit [facility] MEDICINE [address] [place] [address] documented as of this encounter Goals Goal [...] documented as of this encounter Care Teams Brusher Tender Relationship Specialty Start Date End Date Name, MD Isaías [address] [place] [address] PCP - General Family Medicine 03/09/18 documented as of this encounter
--- OUTSIDE RECORDS SUMMARY | 2024-05-23 08:04 | XMS_ITS | Encounter Summary ---
Author Organization [employer] [facility] Address [address] [place] [address] 7t [place] [address] Care Team Providers Care Sort Line Name Role Phone Name, Isaías CALVERT Primary Care Provider [phone] Reason for Visit * Reason Comments Med Refill Encounter Details Date Type Department Care Team ([facility] Contact Info) Description 09/25/2022 Refill [facility] MEDICINE [address] [place], [place] [phone] Name, MD Isaías [address] [place] [address] Chronic pain syndrome Social History Tobacco Use [...] Upcoming Encounters Date Type Department Care Team ([facility] Contact Info) Description 05/31/2024 11:00 AM EDT Office Visit [facility] MEDICINE [address] [place] [address] documented as of this encounter Goals Goal [...] documented as of this encounter Care Teams Sort Line Relationship Specialty Start Date End Date Name, MD Isaías [address] [place] [address] PCP - General Family Medicine 03/09/18 documented as of this encounter
--- OUTSIDE RECORDS SUMMARY | 2024-05-23 08:04 | XMS_ITS ---
Care Plan Created on: May 23, 2024 Marina Shepherd : 1980 Sex: Female Author Organization [employer] Address [address] [facility] 7t [place] [address] Care Team Providers Care Senior Sql Server Database Developer Name Role Phone Name, Isaías CALVERT Primary Care Provider [phone] Active Problems Problem Noted Date Diagnosed Date USP current use of opiate analgesic 2023 Overview (04/10/2024): Medication: oxycodone 5mg Q12H PRN Indication: chronic low back pain, hx of lumbar surgery Last RESOURCE DIRECTOR Agreement: 04/05/24 Tier II: RESOURCE DIRECTOR visit every 3 months (Dr. White, Mar [...]
--- OUTSIDE RECORDS SUMMARY | 2024-05-23 08:05 | XMS_ITS | Encounter Summary ---
Author Organization [employer] Address [address] [facility] 7t [place] [address] Care Team Providers Care Color Separation Photographer Name Role Phone Name, Isaías CALVERT Primary Care Provider [phone] Reason for Visit * Reason Onset Date Comments Med Refill 01/26/2024 Encounter Details Date Type Department Care Team (Late st Contact Info) Description 01/26/2024 Refill [facility] MEDICINE [address] [place], [place] [phone] Name, MD sIaías [address] [place] [address] Chronic low back pain, unspecified back pain [...] 11:00 AM EDT Office Visit [facility] [address] [place] [address] documented as of this encounter Goals Goal [...] documented as of this encounter Care Teams Color Separation Photographer Relationship Specialty Start Date End Date Name, MD Isaías [address] [place] [address] PCP - General Family Medicine 03/09/18 documented as of this encounter
--- OUTSIDE RECORDS SUMMARY | 2024-05-23 08:05 | XMS_ITS | Encounter Summary ---
Author Organization [employer] Address [address] [facility] 7t [place] [address] Care Team Providers Care Layout Former Name Role Phone Name, Isaías CALVERT Primary Care Provider [phone] Reason for Visit * Reason Onset Date Comments Med Refill 02/01/2024 Encounter Details Date Type Department Care Team (Late st Contact Info) Description 02/01/2024 Refill [facility] MEDICINE [address] [place], [place] [phone] Smiley Bustillos, JUDY [address] [place] [address] Pain in both hands Social History Tobacco [...] Description 05/31/2024 11:00 AM EDT Office Visit [facility] MEDICINE [address] [place] [address] documented as of this encounter Goals Goal [...] documented as of this encounter Care Teams Layout Former Relationship Specialty Start Date End Date Name, MD Isaías [address] [place] [address] PCP - General Family Medicine 03/09/18 documented as of this encounter
--- OUTSIDE RECORDS SUMMARY | 2024-05-23 08:05 | XMS_ITS | Encounter Summary ---
Author Organization [employer] Address [address] [facility] 7t [place] [address] Care Team Providers Care Milk Treater Name Role Phone Name, Isaías CALVERT Primary Care Provider [phone] Reason for Visit * Reason Comments Med Change Request Encounter Details Date Type Department Care Team ([facility] st Contact Info) Description 02/11/2024 Refill [facility] MEDICINE [address] [place], [place] [phone] Name, MD Isaías [address] [place] [address] Social History Tobacco Use Types Packs/Day Years [...] Description 05/31/2024 11:00 AM EDT Office Visit [facility] MEDICINE [address] [place] [address] documented as of this encounter Goals Goal [...] documented as of this encounter Care Teams Milk Treater Relationship Specialty Start Date End Date Name, MD Isaías [address] [place] [address] PCP - General Family Medicine 03/09/18 documented as of this encounter
--- OUTSIDE RECORDS SUMMARY | 2024-05-23 08:05 | XMS_ITS | Encounter Summary ---
Author Organization [employer] Address [address] [facility] 7t [place] [address] Care Team Providers Care Ceramic Designer Name Role Phone Name, Isaías CALVERT Primary Care Provider [phone] Reason for Visit * Reason Onset Date Comments Med Refill 04/27/2024 Encounter Details Date Type Department Care Team (Late st Contact Info) Description 04/27/2024 Refill [facility] MEDICINE [address] [place] [address] Name, MD Isaías [address] [place] [address] Chronic low back pain, unspecified back pain [...] Description 05/31/2024 11:00 AM EDT Office Visit [facility] MEDICINE [address] [place] [address] documented as of this encounter Goals Goal [...] documented as of this encounter Care Teams Ceramic Designer Relationship Specialty Start Date End Date Name, MD Isaías [address] [place] [address] PCP - General Family Medicine 03/09/18 documented as of this encounter
--- OUTSIDE RECORDS SUMMARY | 2024-05-23 08:05 | XMS_ITS | Encounter Summary ---
Author Organization [facility] Address [address] [facility] 7t [place] [address] Care Team Providers Care Transcriptionist Name Role Phone Name, Isaías CALVERT Primary Care Provider [phone] Reason for Visit * Reason Onset Date Comments Med Refill 09/24/2023 Encounter Details Date Type Department Care Team (Late st Contact Info) Description 09/24/2023 Refill [facility] MEDICINE [address] [place] [address] Name, MD Isaías [address] [place] [address] Chronic low back pain, unspecified back pain [...] 11:00 AM EDT Office Visit [facility] MEDICINE [address] [place] [address] documented as of this encounter Goals Goal [...] documented as of this encounter Care Teams Transcriptionist Relationship Specialty Start Date End Date Name, MD Isaías [address] [place] [address] PCP - General Family Medicine 03/09/18 documented as of this encounter
--- OUTSIDE RECORDS SUMMARY | 2024-05-23 08:05 | XMS_ITS | Encounter Summary ---
Author Organization [employer] Address [address] [facility] 7t [place] [address] Care Team Providers Care Scrubber Machine Tender Name Role Phone Name, Isaías CALVERT Primary Care Provider [phone] Encounter Details Date Type Department Care Team ([facility] st Contact Info) Description 05/20/2024 Population Health Risk Score [facility] ([facility]) Department [address] [facility] [address] [place] [address] Provider, Population Health Generic Social History Tobacco Use Types Packs/Day Years [...] enough money to get more: Never True 04/ 04/2023 Transportation Answer Date Recorded In the [...] Description 05/31/2024 11:00 AM EDT Office Visit [facility] MEDICINE [address] [place] [address] documented as of this encounter Goals Goal [...] documented as of this encounter Care Teams Scrubber Machine Tender Relationship Specialty Start Date End Date Name, MD Isaías [address] [place] [address] PCP - General Family Medicine 03/09/18 documented as of this encounter
--- OUTSIDE RECORDS SUMMARY | 2024-05-23 08:05 | XMS_ITS | Encounter Summary ---
Author Organization [employer] [facility] Address [address] [place] [address] 7t [place] [address] Care Team Providers Care Accounts Payable Lead Name Role Phone Name, Isaías CALVERT Primary Care Provider [phone] Encounter Details Date Type Department Care Team ([facility] Contact Info) Description 04/07/2022 Orders Only [facility] MED & PEDS [address] [place], [place] [phone] Codie Luna LPN Social History Tobacco Use [...] Description 05/31/2024 11:00 AM EDT Office Visit [facility] MEDICINE [address] [place], [place] [phone] documented as of this encounter Visit Diagnoses Not on filedocumented in this encounter Care Teams Accounts Payable Lead Relationship Specialty Start Date End Date Name, MD Isaías [address] [place] [address] PCP - General Family Medicine 03/09/18 documented as of this encounter
--- OUTSIDE RECORDS SUMMARY | 2024-05-23 08:05 | XMS_ITS | Encounter Summary ---
Author Organization [employer] Address [address] [facility] 7t [place] [address] Care Team Providers Care Clinical Unit Coordinator Name Role Phone Name, Isaías CALVERT Primary Care Provider [phone] Reason for Visit * Reason Onset Date Comments Med Refill 04/27/2024 Encounter Details Date Type Department Care Team (Late st Contact Info) Description 04/27/2024 Refill [facility] MEDICINE [address] [place], [place] [phone] Afsaneh Diaz MD [address] [place] [address] Pain in both hands Social History Tobacco [...] 05/31/2024 11:00 AM EDT Office Visit [facility] MEDICINE [address] [place] [address] documented as of this encounter Goals Goal [...] documented as of this encounter Care Teams Clinical Unit Coordinator Relationship Specialty Start Date End Date Name, MD Isaías [address] [place] [address] PCP - General Family Medicine 03/09/18 documented as of this encounter
--- OUTSIDE RECORDS SUMMARY | 2024-05-23 08:05 | XMS_ITS | Encounter Summary ---
Author Organization [employer] Address [address] [facility] 7t [place] [address] Care Team Providers Care Retort Fireman Name Role Phone Name, Isaías CALVERT Primary Care Provider [phone] Reason for Visit * Reason Comments Med Refill Encounter Details Date Type Department Care Team ([facility] st Contact Info) Description 03/09/2024 Refill [facility] MEDICINE [address] [place], [place] [phone] [facility] [address] [place], [place] [phone] Vitamin D deficiency Social History Tobacco Use [...] Description 05/31/2024 11:00 AM EDT Office Visit [facility] MEDICINE [address] [place] [address] documented as of this encounter Goals Goal [...] documented as of this encounter Care Teams Retort Fireman Relationship Specialty Start Date End Date Name, MD Isaías [address] [place] [address] PCP - General Family Medicine 03/09/18 documented as of this encounter
[2024-05-23 11:23] LABS: MANUAL DIFF FLAG NO
[2024-05-23 11:35] LABS: Basophils Absolute Auto 0.1 X10*3/uL (0.0-0.2); Basophils Percent Auto 1.1 % (0-2); Eosinophils Absolute Auto 0.1 X10*3/uL (0.0-0.4); Eosinophils Percent Auto 2.5 % (0-4); Hematocrit 34.2 % (37.0-47.0); Imm Gran Abs Auto 0.01 X10*3/uL (0.00-0.03); Imm Gran Pct Auto 0.2 % (0.0-0.4); Lymphocytes Absolute Auto 1.6 X10*3/uL (1.2-4.9); Lymphocytes Percent Auto 29.5 % (20-40); Mean Corpuscular HGB Conc 29.2 g/dl (31.0-35.0); Mean Corpuscular Hemoglobin 22.4 pg (27.0-33.0); Mean Corpuscular Volume 76.7 fL (80.0-98.0); Mean Platelet Volume 11.1 fL (9.4-12.3); Monocytes Absolute Auto 0.4 X10*3/uL (0.1-1.2); Neutrophils Absolute Auto 3.1 x10*3/uL (2.0-8.3); Neutrophils Percent Auto 58.7 % (45-73); Platelet Count 288 X10*3/uL (160-400); Red Blood Count 4.46 X10*6/uL (4.20-5.50); Red Cell Distribution Width 15.4 % (11.0-16.0); White Blood Count 5.3 X10*3/uL (4.8-10.8)
[2024-05-23 11:56] LABS: Estimated Average Glucose 123 mg/dL; Hemoglobin A1C 109.3629 umol/L; Hemoglobin A1c % 5.9 % (<6.0); Total Hemoglobin (HGBA1C) 2695.1346 umol/L
[2024-05-23 13:03] LABS: Alanine Aminotransferase 23 U/L (0-31); Alkaline Phosphatase 73 U/L (39-117); Anion Gap 11 (12-20); Aspartate Amino Transferase 20 U/L (5-31); Bilirubin Total 0.3 mg/dL (0.0-1.0); Blood Urea Nitrogen 13 mg/dL (9-16); Calcium 8.7 mg/dL (8.4-10.2); Carbon Dioxide 24 mmol/L (22-29); Chloride 110 mmol/L (96-108); Cholesterol 134 mg/dL (<200); Estimated Glomerular Filt Rate > 60; Glucose Random 97 mg/dL (60-115); HDL Cholesterol 45 mg/dL (>40); LDL Cholesterol Calculated 78 mg/dL (<100); Potassium 4.1 mmol/L (3.3-5.1); Sodium 141 mmol/L (135-145); Total Protein 6.7 g/dL (6.5-8.0); Triglycerides 58 mg/dL (<150)
== END 2024-05-23 08:00 | disposition home or self-care (01) ==
LOC: HO.HHCL 07:59
PROVIDERS: Visit Provider Internal Medicine Geriatric Medicine
DX: E66.9 Obesity, unspecified (principal); L83 Acanthosis nigricans; Z86.2 Personal history of diseases of the blood and blood-forming organs and certain disorders involving the immune mechanism
CPT/HCPCS: 36415; 80053; 80061; 83036; 85025

== ENCOUNTER 2024-07-20 16:45 | Outpatient (REF) | payer MEDICAID, SELFPAY ==
--- OUTSIDE RECORDS SUMMARY | 2024-07-20 16:48 | XMS_ITS | Encounter Summary ---
Author Organization [employer] Address [address] [facility] 7t [place] [address] Care Team Providers Care Riffler Tender Name Role Phone Name, Isaías CALVERT Primary Care Provider [phone] Reason for Visit * Reason Onset Date Comments Chart Prep 07/19/2024 Encounter Details Date Type Department Care Team ([facility] st Contact Info) Description 07/19/2024 Telephone [facility] MEDICINE [address] [place], [place] [phone] Karie Geronimo NP [address] [place] [address] Chart Prep Social History Tobacco Use Types Packs/Day Years Used Date Smoking Tobacco: Never Smokeless Tobacco: Never Alcohol Use Standard Drinks/Week Comments Never 0 (1 standard drink = 0.6 oz pur e alcohol) Alcohol Answer Date Recorded Frequency of Alcohol Consumption Not on file 10/12/2023 Average Number of Drinks Not on file 024 Frequency of Binge Drinking Not on file 0807/2023 Score 0 10/12/2023 Depression Answer Date Recorded Patient Health Questionnaire-9 Score 3 07/20/2024 Patient Health Questionnaire-9 Score 3 07/20/2024 Last PHQ-9: Questionnaire Data Not on file 0 07/20/2024 Housing Stability Answer Date Recorded What is [...] Date Recorded Patient Health Questionnaire-2 Score 0 07/20/2024 Comments No Sex and Gender Information Value Date Recorded Sex Assigned at Female 01/06/2022 10:30 AM EDT Legal Sex Female 10:30 AM EDT Gender Identity Female 01/06/2022 10:30 AM EDT Sexual Orientation Straight 01/06/2022 10 :30 AM EDT documented as of this encounter Miscellaneous Notes * Telephone Encounter - Dixie Garber MA - 07/19/2024 10:51 AM EDT Chart Prep Labs: done Images: done Referrals: not applicable Vaccines due: Hep B and Hep A Screenings: HIV and Hep C screenings. Overdue care gaps: SDOH, PHQ-9, NAYE-7, Oral health screening, and Disability screen documented in this encounter Plan of Treatment Upcoming Encounters Date Type Department Care Team (Late st Contact Info) Description 09/27/2024 11:00 AM EDT Office Visit [facility] MEDICINE [address] [place] [phone] documented as of this encounter Goals Goal [...] documented as of this encounter Care Teams Riffler Tender Relationship Specialty Start Date End Date Name, MD Isaías [address] [place] [address] PCP - General Family Medicine 03/09/18 documented as of this encounter
--- OUTSIDE RECORDS SUMMARY | 2024-07-20 16:48 | XMS_ITS | Encounter Summary ---
Author Organization [employer] Address 75 [facility] 7t [place] [address] Care Team Providers Care Ballpoint Pens Assembler Name Role Phone Name, Isaías CALVERT Primary Care Provider [phone] Reason for Visit * Reason Onset Date Comments Med Refill 07/24/2023 Encounter Details Date Type Department Care Team ([facility] st Contact Info) Description 07/24/2023 Refill [facility] MED & PEDS [address] [place], [place] [phone] Name, MD Isaías [address] [place] [address] Chronic low back pain, unspecified back pain [...] Description 09/27/2024 11:00 AM EDT Office Visit [facility] MEDICINE [address] [place] [address] documented as of this encounter Goals Goal [...] documented as of this encounter Care Teams Ballpoint Pens Assembler Relationship Specialty Start Date End Date Name, MD Isaías [address] [place] [address] PCP - General Family Medicine 03/09/18 documented as of this encounter
--- OUTSIDE RECORDS SUMMARY | 2024-07-20 16:48 | XMS_ITS | Encounter Summary ---
Author Organization [employer] Address [address] [facility] 7[place] [address] Care Team Providers Care Superintendent Terminal Name Role Phone Name, Isaías CALVERT Primary Care Provider [phone] Reason for Visit * Reason Onset Date Comments Medication Question 03/25/2024 Encounter Details Date Type Department Care Team ([facility] Contact Info) Description 03/25/2024 Telephone [facility] MEDICINE [address] [place], [place] [phone] Name, MD Isaías [address] [place] [address] Medication Question Social History Tobacco Use Types [...] Description 09/27/2024 11:00 AM EDT Office Visit [facility] MEDICINE [address] [place] [phone] documented as of this encounter Goals Goal Patient Goal Type Associated Problems Recent Progress Patient-Stated? Author Help patient manage chronic opioid therapy Care Plan Patient in chronic opioid therapy No Peggy Manzano RN Improve Sleep Habits Care Plan Patient in chronic opioid therapy No Natacha, Peggy, RN documented as of this encounter Visit Diagnoses Not on filedocumented in this encounter Additional Health Concerns Active Problems Noted Date Diagnosed Date Patient in chronic opioid therapy 05/29/2022 Assessment Noted Time PHQ-9 Depression Total Score: 0 06/09/19 24 1:30 PM EDT documented as of this encounter Care Teams Superintendent Terminal Relationship Specialty Start Date End Date Name, MD Isaías [address] [place] [address] PCP - General Family Medicine 03/09/18 documented as of this encounter
--- OUTSIDE RECORDS SUMMARY | 2024-07-20 16:48 | XMS_ITS | Encounter Summary ---
Author Organization [employer] Address [address] [facility] 7 [place] [address] Care Team Providers Care Card Feeder Name Role Phone Name, Isaías CALVERT Primary Care Provider [phone] Reason for Visit * Reason Comments Med Refill Encounter Details Date Type Department Care Team ([facility] Contact Info) Description 08/27/2022 Refill [facility] MEDICINE [address] [place] [phone] Henna Harris FNP [address] [place], [place] [phone] Chronic pain syndrome Social History Tobacco Use [...] Upcoming Encounters Date Type Department Care Team ([facility] Contact Info) Description 09/27/2024 11:00 AM EDT Office Visit [facility] MEDICINE [address] [place] [phone] documented as of this encounter Goals Goal [...] as of this encounter Care Teams Card Feeder Relationship Specialty Start Date End Date Name, MD Isaías [address] [place] [address] PCP - General Family Medicine 03/09/18 documented as of this encounter
--- OUTSIDE RECORDS SUMMARY | 2024-07-20 16:48 | XMS_ITS | Encounter Summary ---
Author Organization [employer] Address [address] [facility] 7t [place] [address] Care Team Providers Care Compliance Lead Name Role Phone Name, Isaías CALVERT Primary Care Provider Reason for Visit * Reason Onset Date Comments Med Refill 02/01/2024 Encounter Details Date Type Department Care Team (Late st Contact Info) Description 02/01/2024 Refill [facility] MEDICINE [address] [place], [place] [phone] Smiley Bustillos, JUDY [address] [place] [address] Pain in both hands Social History Tobacco [...] Description 09/27/2024 11:00 AM EDT Office Visit [facility] MEDICINE [address] [place] [address] documented as of this encounter Goals Goal [...] documented as of this encounter Care Teams Compliance Lead Relationship Specialty Start Date End Date Name, MD Isaías [address] [place] [address] PCP - General Family Medicine 03/09/18 documented as of this encounter
--- OUTSIDE RECORDS SUMMARY | 2024-07-20 16:48 | XMS_ITS | Clinical Summary ---
Author Organization [employer] Address [address] [facility] 7t [place] [address] Care Team Providers Care Cook Candy Name Role Phone Name, Isaías CALVERT Primary Care Provider [phone] Allergies Active Allergy Reactions Criticality Noted Date Comments Penicillins Other,Rash,Anaphylaxis High 01/23/2016 Other reaction(s): Unknown Medications cholecalciferol VITAMIN D (Vitamin D-3) 50 MCG (1999) tabletIndicatio ns:Vitamin D deficiency TAKE 1 TABLET BY MOUTH EVERY DAY 90 tablet 01/25/20 24 Active Diclofenac Sodium 1 % gelIndications: Pain in both hands APPLY 2 GRAMS TOPICALLY EVERY DAY TO BOTH HANDS 100 g 1 04/27/19 25 Active oxyCODONE (Roxicodone) 5 MG immediate release tabletIndicatio ns:Chronic low back pain, unspecified back pain laterality, unspecified whether sciatica present Take 1 tablet (5 mg) by mouth every 12 (twelve) hours if needed for severe pain for up to 28 days. 56 tablet 06/25/19 25 025 Active norethindrone (Aygestin) 5 MG tablet Take 1 tablet by mouth Once per day. 06/23/19 25 Active Zepbound 2.5 MG/0.5ML solution auto-injector Inject 2.5 mg under the skin every 7 (seven) days. 06/29/19 25 Active esomeprazole (NexIUM) [address] capsule Take 1 capsule by mouth before breakfast. 06/06/19 25 Active omeprazole (PriLOSEC) [address] capsuleIndicati ons:Heartburn TAKE 1 CAPSULE BY MOUTH EVERY DAY BEFORE A MEAL 90 capsule 02/01/20 24 025 Discontinued(Me d list cleanup (will not trigger notification to Pharmacy)) oxyCODONE (Roxicodone) 5 MG immediate release tabletIndicatio ns:Chronic low back pain, unspecified back pain laterality, unspecified whether sciatica present Take 1 tablet (5 mg) by mouth every 12 (twelve) hours if needed for severe pain for up to 28 days. Do not start before May 25, 2024. 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 White, Mar [...] Encounters Date Type Department Care Team Description 07/20/2024 3:30 PM EDT Office Visit [facility] [address] [place] [address] Karie Geronimo NP Shivering (Primary Dx) 07/20/2024 Travel 07/19/2024 Telephone [facility] [address] [place] [address] Karie Geronimo NP Chart Prep 07/19/2024 Telephone [facility] [address] [place] [phone] Isaías White MD Nurse Triage 06/28/2024 11:00 AM EDT Clinical Support [facility] [address] [place] [phone] Jemima Mane RN Chronic low back pain, unspecified back pain laterality, unspecified whether sciatica present (Primary Dx); terminal operations manager (current) use of opiate analgesic 06/28/2024 Travel 06/24/2024 Refill [facility] [address] [place] [phone] Isaías White MD Chronic low back pain, unspecified back pain laterality, unspecified whether sciatica present 06/09/2024 Telephone [facility] [address] [place] [phone] Isaías White MD Prior Auth Prescription (Zepbound) 06/03/[address] [address] Maggi Reich OR shelbie recalls 06/01/2024 Telephone [facility] [address] [place] [phone] Isaías White MD Reschedule [facility] 06/01/2024 Travel 05/31/2024 Telephone [facility] [address] [place] [phone] Isaías White MD Referral 05/31/[address] [address] Isaías White MD Appointment Request 05/25/2024 Refill [facility] [address] [place] [phone] Isaías White MD Chronic low back pain, unspecified back pain laterality, unspecified whether sciatica present 05/23/2024 Refill [facility] [address] [place] [phone] Isaías White MD Chronic low back pain, unspecified back pain laterality, unspecified whether sciatica present 05/20/2024 Population Health Risk Score [facility] ([facility]) Department [address] [place] [phone] Provider, Population Health Generic 05/17/2024 3:30 PM EDT Office Visit [facility] [address] [place] [address] Name, MD Isaías Obesity (BMI 30-39.9) (Primary Dx); Bariatric surgery status; AN (acanthosis nigricans); History of anemia 05/17/2024 Travel 04/27/2024 Refill [facility] [address] [place] [address] Afsaneh Diaz MD Pain in both hands 04/27/2024 Refill [facility] [address] [place] [address] Isaías White MD Chronic low back pain, unspecified back pain laterality, unspecified whether sciatica present 04/26/2024 Refill [facility] [address] [place] [address] Name, MD Isaías Chronic low back pain, unspecified back pain laterality, unspecified whether sciatica present from Last 3 Months Immunizations Immunization Administration Dates Next Due Influenza injectable quadriv [...] Average Number of Drinks Not on file 08/05/2 024 Frequency of Binge Drinking Not on file 080 07/2023 Score 0 10/12/2023 Depression Answer Date [...] Sign Reading Time Taken Comments Blood Pressure 130/68 07/20/2024 4:41 PM EDT Pulse 69 07/20/2024 3:56 PM EDT Temperature 36.9 ??C (98.4 ??F) 07/20/2024 3:56 PM ED T Respiratory Rate 16 07/20/2024 3:56 PM EDT Oxygen Saturation 99% 07/20/2024 3:56 PM EDT Inhaled Oxygen Concentration - - Weight 97.8 kg (215 lb 9.6 oz) 07/20/2024 3:56 P M EDT Height 157.5 cm (5' 2 ) 07/20/2024 3:56 PM EDT Body Mass Index 39.43 07/20/2024 3:56 PM EDT Plan of Treatment Upcoming Encounters Date Type Department Care Team (Eliceo st Contact Info) Description 09/27/2024 11:00 AM EDT Office Visit [facility] [address] [place] [address] Health Maintenance Due Date Last Done Comments HIV Screening 1980 Hepatitis C Screening 02/16/2000 Hepatitis A Vaccines (1 of 2 - Risk 2-dose series) 2001 Hepatitis B Vaccines (1 of 3 - 19+ 3-dose series) 2001 Depression Screening 06/08/2024 06/09/2023, 06/09/19 SDOH Screening 06/08/2024 06/09/2023 Alcohol/Substance Use Screening 10/11/2024 10/12/2023 Family Planning (PISQ) 10/26/2024 10/27/2023 Diabetes: Hemoglobin A1C 05/23/2025 025, 05/08/2022, 08/20/2021, Additional history exists Tobacco Screening 07/20/2025 07/20/2024 Mammogram 04/22/2026 04/22/2024, 04/18/2023 Cervical Cancer Screening 10/14/2026 HPV/Cotest 10/14/2026 10/15/2023, 07/03/2020 Pap Smear 10/14/2026 10/15/2023, 07/03/2020 Lipid Panel 05/23/2029 05/23/2024, 08/20/2021 DTaP/Tdap/Td Vaccines (3 - Td or Tdap) [...] age to complete this topic Meningococcal B Vaccine Aged Out No l onger eligible based on patient's age to complete [...] Patient in chronic opioid therapy No Peggy Mnazano, freight loader Procedure Name Priority Date/Time Associated Diagnosis Comments POCT TANISHA-14 URINE DRUG SCREEN Routine 06/28/2024 1:13 PM EDT detention (current) use of opiate analgesic Chronic low back pain, unspecified back pain laterality, unspecified whether sciatica present LIPID PANEL, STANDARD Routine 05/23/2024 8:03 AM EDT Obesity (BMI 30-39.9) AN (acanthosis nigricans) HEMOGLOBIN A1C Routine 05/23/2024 8:03 AM EDT AN (acanthosis nigricans) COMPREHENSIVE METABOLIC PANEL Routine 05/23/2024 8:03 AM EDT Obesity (BMI 30-39.9) CBC WITH AUTO DIFFERENTIAL Routine 05/23/2024 8:03 AM EDT History of anemia BI MAMMOGRAM SCREENING TOMOSYNTHESIS BILATERAL Routine 04/22/2024 11:05 AM EST THINPREP IMAGING PAP AND HPV MRNA E6/E7 Routine 10/15/2023 1:19 PM EDT from Last 3 Months or Most Recently Relevant to Health Maintenance Results * POCT TANISHA-14 Urine Drug Screen (06/28/2024 1:13 PM EDT) Pathologist [facility] [place] Oxycodone Screen, Urine Positive Urine Urine specimen obtained by clean catch procedure / Unknown 06/28/2024 1:13 PM EDT Narrative Jemima Mane RN - 06/28/2024 1:13 PM EDT .Lot# [id number] Exp: 01-06-26 us Isaías Name MD POINT OF CARE TEST ENTER/EDIT OR DERABLES Final Result * (ABNORMAL) CBC auto differential (05/23/2024 8:03 AM EDT) [facility] White Blood Count 5.3 4.8 - 10.8 X10*3/uL [facility] Red Blood Count 4.46 4.20 - 5.50 X10*6/uL [facility] Hemoglobin 10.0(L) 12.0 - 16.0 g/dl [facility] Hematocrit 34.2(L) 37.0 - 47.0 % [facility] Mean Corpuscular Volume 76.7(L) 80.0 - 98.0 fL [facility] Mean Corpuscular Hemoglobin 22.4(L) 27.0 - 33.0 pg [facility] Mean Corpuscular HGB Conc 29.2(L) 31.0 - 35.0 g/dl [facility] Red Cell Distribution Width 15.4 11.0 - 16.0 % [facility] Platelet Count 288 160 - 400 X10*3/uL [facility] Mean Platelet Volume 11.1 9.4 - 12.3 fL [facility] Neutrophils Percent Auto 58.7 45 - 73 % [facility] Imm Gran Pct Auto 0.2 0.0 - 0.4 % [facility] Lymphocytes Percent Auto 29.5 20 - 40 % [facility] Monocytes Percent Auto 8.0 2 - 11 % [facility] Eosinophils Percent Auto 2.5 0 - 4 % [facility] Basophils Percent Auto 1.1 0 - 2 % [facility] NRBC Pct Auto 0.0 0.0 - 0.2 /100WBC [facility] Neutrophils Absolute Auto 3.1 2.0 - 8.3 x10*3/uL [facility] Imm Gran Abs Auto 0.01 0.00 - 0.03 X10*3/uL [facility] Lymphocytes Absolute Auto 1.6 1.2 - 4.9 X10*3/uL [facility] Monocytes Absolute Auto 0.4 0.1 - 1.2 X10*3/uL [facility] Eosinophils Absolute Auto 0.1 0.0 - 0.4 X10*3/uL [facility] Basophils Absolute Auto 0.1 0.0 - 0.2 X10*3/uL [facility] NRBC Abs Auto 0.000 0.0 - 0.012 X10*3/uL [facility] Blood Venous blood specimen / Unknown 05/23/2024 8:03 AM EDT 05/23/2024 11:18 AM EDT us Isaías Name LAB BLOOD ORDERABLES Final Resul t [facility] [address] [place] [phone] * Hemoglobin A1c (05/23/2024 8:03 AM EDT) Hemoglobin A1c 5.9 <6.0 % [facility] Comment:Hemoglobin A1C Refer ence Range Adults: 4.8 - 6.0 % Non diabetic: < 6.0 % Goal: < 7.0 %Additional Action Suggested: > 8.0 %Note: Hemoglobin A1c results are invalid for patients with abnormal amounts of HbF. Blood transfusions may impact the HbA1c concentration in the patient sample. Estimated Average Glucose 123 mg/dL [facility] Comment:eAG = Estimated ave rage glucose which is %A1C expressed asaverage glucose, using the formula of the D4G-FdwhrehTwvzqfr Glucose study (ADAG), Diabetes Care, Vol.31,#8,Oct. 2007 Blood Venous blood specimen / Unknown 05/23/2024 8:03 AM EDT 05/23/2024 11:18 AM EDT us Isaías White MD LAB BLOOD ORDERABLES Final Resul t Performing Organization Address [facility] Co de Phone Number [facility] [address] [place] [phone] * Lipid Panel, Standard (05/23/2024 8:03 AM EDT) Triglycerides 58 <150 mg/dL [facility] Comment:Desirable Triglyceri de: less than 150 mg/dLBorderline High Triglyceride 150-199 mg/dLHigh Triglyceride: 200-499 mg/dLVery High Triglyceride: greater than or equal to 5OO mg/dL Cholesterol 134 <200 mg/dL [facility] Comment:Desirable Cholestero l: less than 200 mg/dLBorderline High Cholesterol: 200-239 mg/dLHigh Cholesterol: greater than 239 mg/dL LDL Cholesterol Calculated 78 <100 mg/dL [facility] Comment:Desirable LDL: less than 100 mg/dLNear Optimal/Above Optimal LDL: 110- 129 mg/dLBorderline High LDL: 130-159 mg/dLHigh LDL: 160-189 mg/dLVery High LDL: greater than or equal to 190 mg/dL HDL Cholesterol 45 >40 mg/dL [facility] Comment:Desirable HDL: great er than 40 mg/dL Note: This HDL assay may give artificially low results in patients with liver disease. Blood Venous blood specimen / Unknown 05/23/2024 8:03 AM EDT 05/23/2024 11:18 AM EDT us Isaías White MD LAB BLOOD ORDERABLES Final Resul t Performing Organization Address [facility] Co de Phone Number [facility] [address] [place] [phone] * (ABNORMAL) Comprehensive Metabolic Panel (05/23/2024 8:03 AM EDT) Sodium 141 135 - 145 mmol/L [facility] Potassium 4.1 3.3 - 5.1 mmol/L [facility] Chloride 110(H) 96 - 108 mmol/L [facility] Carbon Dioxide 24 22 - 29 mmol/L [facility] Anion Gap 11(L) 12 - 20 [facility] Urea Nitrogen (BUN) 13 9 - 16 mg/dL [facility] Creatinine, Serum 0.66 0.5 - 1.4 mg/dL [facility] Estimated Glomerular Filt Rate >60 [facility] Comment:Chronic Kidney Disea se: Estimated GFR < 60 mL/min/1.95n8Txkysd Kidney Disease: Estimated GFR < 15 mL/min/1.73m2 Glucose 97 60 - 115 mg/dL [facility] Calcium 8.7 8.4 - 10.2 mg/dL [facility] Bilirubin, Total 0.3 0.0 - 1.0 mg/dL [facility] Aspartate Amino Transferase 20 5 - 31 U/L [facility] Alanine Aminotransferase 23 0 - 31 U/L [facility] Total Protein 6.7 6.5 - 8.0 g/dL [facility] Albumin Level 4.0 3.5 - 5.0 g/dL [facility] Alkaline Phosphatase 73 39 - 117 U/L [facility] Blood Venous blood specimen / Unknown 05/23/2024 8:03 AM EDT 05/23/2024 11:18 AM EDT us Isaías White MD LAB BLOOD ORDERABLES Final Resul t [facility] [address] [place], [place] [phone] * BI Mammogram Screening Tomosynthesis Bilateral (04/22/2024 11:05 AM EST) Anatomical Region Laterality Modality Breast Bilateral Mammography 04/22/2024 11:0 5 AM EST Narrative 04/30/2024 11:53 AM EST ? [facility] ? [address] ?[place] [address] ? Mammography Report ? Signed ? Patient: Shepherd,Marina ?MR#: [id number] ? : 1980 ?Acct:[id number] ? Age/Sex: 44 / F ?ADM Date: 04/22/24 ? Loc: HO.MAMMO ? Attending Dr: Isaías White MD ? Ordering Physician: Isaías White MD ?Results: 1Negative ? Date of Service: 04/22/24 ?Follow Up: 1 Year From Orig ?? inal Mammogram ? Procedure(s): MM tomosynthesis screening BI ?? Accession Number(s): [id number] ? cc: Name,Isaías CALVERT ? EXAMINATION: ?? [...] ??Dina Garcia DO ??04/30/2024 11:50 AM EST ?? RP ? Dictated By: ?Dina Garcia DO ? Signed By: ?<Electronically signed by Dina Garcia, DO in OV> ? 04/30/24 1150 ? DD/ 1105 ? TD/TT: 04/22/24 1121 ? Children Counselor: ? Procedure Note [place]eter, Image - [facility]/20[facility] [address] [place] [address] Mammography Report Signed Patient: Jesus ShepherdyMR#: [id number] : 1980Acct:[id number] Age/Sex: 44 / FADM Date: 04/22/24 Loc: MATTY.LAVERNEO Attending Dr: Isaías White MD Ordering Physician: Isaías Whiteesults: 1Negative Date of Service: 04/22/24Follow Up: 1 Year From Orig inal Mammogram Procedure(s): MM tomosynthesis screening BI Accession Number(s): [id number] cc: Isaías White MD EXAMINATION: MM SCREENING [...] Dina Garcia DO 04/30/2024 11:50 AM EST RP Dictated By: Dina Garcia DO Signed By: <Electronically signed by Dina Garcia DO in OV> 04/30/24 1150 DD/ 1105 TD/TT: 04/22/24 1121 Children Counselor: us Isaías Name IMLeif BI PROCEDURES Edited Result - Final * Thin[facility] Imaging Pap and HPV mRNA E6/E7 (10/15/2023 1:19 PM EDT) HPV nRNA E6/E7 Not Detected Not Detected [facility] Comment:Methodology: Transcr iption-Mediated AmplificationThis assay detects E6/E7 viral messenger RNA (mRNA) from 14high-risk HPV types (16,18,31,33,35,39,45,51,52,56,58,59,66,68).Cervical sources are required for HPV testing.If a vaginal source from a patient who has had atotal hysterectomy with removal of cervix wassubmitted, please contact the testing laboratoryfor alternative testing options.For additional information, please refer tohttp://education.[employer]faq/DLH122z8(This link if provided for information/educational purposes only.)THIS TEST WAS PERFORMED AT:[employer] [place] [phone] MUNSON MD SOURCE: SEE NOTE [facility] Comment:None given Report Status: TNP [facility] Clinical Information: SEE NOTE [facility] Comment:None given LMP: SEE NOTE [facility] Comment:NONE GIVEN Prev. PAP: SEE NOTE [facility] Comment:NONE GIVEN Prev. BX: SEE NOTE [facility] Comment:NONE GIVEN Statement Of Adequacy: SEE NOTE [facility] Comment:Satisfactory for flory luation.Endocervical/transformation zone componentpresent. General Categorization: [facility] Interpretation/Result: SEE NOTE [facility] Comment:Cytology Results: Ne gative for intraepitheliallesion or malignancy. Cytology Comment SEE NOTE [facility] Comment:This Pap test has be en evaluated with computerassisted technology. Garbage Man: SEE NOTE [facility] Comment:MSM, CT(ASCP)CT scre ening location: [place] [address] Review Garbage Man: [facility] Pathologist [facility] PAP Infection [facility] See Note SEE NOTE [facility] Comment:EXPLANATORY NOTE:The Pap is a screening test for cervical cancer. It isnot a diagnostic test and is subject to false negativeand false positive results. It is most reliable when asatisfactory sample, regularly obtained, is submittedwith relevant clinical findings and history, and whenthe Pap result is evaluated along with historic andcurrent clinical information. 10/15/2023 1:19 PM EDT 10/15/2023 4:06 PM EDT Narrative [facility] - 10/20/2023 1:44 PM EDT SEE SCANNED RESULTS IN EMR Alina Sumner CNM LAB PATHOLOGY ORDERABLES Final Result [facility] [address] [place] [phone] from Last 3 Months or Most Recently Relevant to Health Maintenance Additional Health Concerns Active Problems Noted Date Diagnosed Date Patient in chronic opioid therapy 05/29/2022 Insurance [facility] C3 Care Teams Cook Candy Relationship Specialty Start Date End Date Name, MD Isaías [address] [place] [phone] PCP - General Family Medicine 03/09/18
--- OUTSIDE RECORDS SUMMARY | 2024-07-20 16:48 | XMS_ITS | Encounter Summary ---
Author Organization [employer] Address [address] [facility] [address]t [place] [address] Care Team Providers Care Blower And Compressor Assembler Name Role Phone Name, Isaías CALVERT Primary Care Provider [phone] Reason for Visit * Reason Onset Date Comments Med Refill 09/24/2023 Encounter Details Date Type Department Care Team (Late st Contact Info) Description 09/24/2023 Refill [facility] [address] [place] [address] Name, MD Isaías [address] [place] [address] Chronic low back pain, unspecified back pain [...] Description 09/27/2024 11:00 AM EDT Office Visit [facility] [address] [place] [address] documented as of this encounter Goals Goal [...] documented as of this encounter Care Teams Blower And Compressor Assembler Relationship Specialty Start Date End Date Name, MD Isaías [address] [place] [address] PCP - General Family Medicine 03/09/18 documented as of this encounter
--- OUTSIDE RECORDS SUMMARY | 2024-07-20 16:48 | XMS_ITS | Encounter Summary ---
Author Organization [employer] Address [address] [facility] [address]t [place] [address] Care Team Providers Care Desktop Specialist Name Role Phone Name, Isaías CALVERT Primary Care Provider [phone] Reason for Visit * Reason Comments Med Refill Encounter Details Date Type Department Care Team ([facility] st Contact Info) Description 03/09/2024 Refill [facility] [address] [place], [place] [phone] [facility] [address] [place] [address] Vitamin D deficiency Social History Tobacco Use [...] Description 09/27/2024 11:00 AM EDT Office Visit [facility] [address] [place] [address] documented as of this encounter Goals Goal [...] documented as of this encounter Care Teams Desktop Specialist Relationship Specialty Start Date End Date Name, MD Isaías [address] [place] [address] PCP - General Family Medicine 03/09/18 documented as of this encounter
--- OUTSIDE RECORDS SUMMARY | 2024-07-20 16:48 | XMS_ITS | Encounter Summary ---
Author Organization [employer] Address [address] [facility] 7t [place] [address] Care Team Providers Care Asbestos Coverer Name Role Phone Name, Isaías CALVERT Primary Care Provider [phone] Reason for Visit * Reason Onset Date Comments Med Refill 12/23/2022 Encounter Details Date Type Department Care Team (Late st Contact Info) Description 12/23/2022 Refill [facility] [address] [place], [place] [phone] Name, MD Isaías [address] [place] [address] Chronic low back pain, unspecified back pain [...] Description 09/27/2024 11:00 AM EDT Office Visit [facility] [address] [place] [address] documented as of this encounter Goals Goal [...] documented as of this encounter Care Teams Asbestos Coverer Relationship Specialty Start Date End Date Name, MD Isaías [address] [place] [address] PCP - General Family Medicine 03/09/18 documented as of this encounter
--- OUTSIDE RECORDS SUMMARY | 2024-07-20 16:48 | XMS_ITS | Encounter Summary ---
Author Organization [employer] Address [address] [facility] [address] [place] [address] Care Team Providers Care Patient Placement Coordinator Name Role Phone Name, Isaías CALVERT Primary Care Provider [phone] Encounter Details Date Type Department Care Team ([facility] Contact Info) Description 04/07/2022 Orders Only [facility] [address] [place] [address] Codie Luna LPN Social History Tobacco Use [...] Encounters Date Type Department Care Team ([facility] Contact Info) Description 09/27/2024 11:00 AM EDT Office Visit [facility] [address] [place], [place] [phone] documented as of this encounter Visit Diagnoses Not on filedocumented in this encounter Care Teams Patient Placement Coordinator Relationship Specialty Start Date End Date Name, MD Isaías [address] [place] [address] PCP - General Family Medicine 03/09/18 documented as of this encounter
--- OUTSIDE RECORDS SUMMARY | 2024-07-20 16:48 | XMS_ITS | Encounter Summary ---
Author Organization [employer] Address [address] [facility] [address] [place] [address] Care Team Providers Care International Freight Forwarder Name Role Phone Name, Isaías CALVERT Primary Care Provider [phone] Reason for Visit * Reason Comments Med Refill Encounter Details Date Type Department Care Team ([facility] st Contact Info) Description 05/18/2023 Refill [facility] MEDICINE [address] [place] [address] Name, MD Isaías [address] [place] [address] Vitamin D deficiency Social History Tobacco Use [...] 11:00 AM EDT Office Visit [facility] MEDICINE [address] [place] [address] documented as of this encounter Goals Goal [...] documented as of this encounter Care Teams International Freight Forwarder Relationship Specialty Start Date End Date Name, MD Isaías [address] [place] [address] PCP - General Family Medicine 03/09/18 documented as of this encounter
--- OUTSIDE RECORDS SUMMARY | 2024-07-20 16:48 | XMS_ITS | Encounter Summary ---
Author Organization [employer] Address [address] [facility] [address] [place] [address] Care Team Providers Care Loan Underwriter Name Role Phone Name, Isaías CALVERT Primary Care Provider [phone] Reason for Visit * Reason Comments Med Refill Encounter Details Date Type Department Care Team ([facility] Contact Info) Description 09/25/2022 Refill [facility] MEDICINE [address] [place], [place] [phone] Name, MD Isaías [address] [place] [address] Chronic pain syndrome Social History Tobacco Use [...] Upcoming Encounters Date Type Department Care Team ([facility] Contact Info) Description 09/27/2024 11:00 AM EDT Office Visit [facility] MEDICINE [address] [place] [address] documented as of this encounter Goals Goal Patient Goal Type Associated Problems Recent Progress Patient-Stated? Author Help patient manage chronic opioid therapy Care Plan Patient in chronic opioid therapy Peggy Dominugez, RN Improve Sleep Habits Care Plan Patient in chronic opioid therapy Peggy Dominguez, RN documented as of this encounter Visit Diagnoses Diagnosis Chronic pain syndrome documented in this encounter Additional Health Concerns Active Problems Noted Date Diagnosed Date Patient in chronic opioid therapy 05/29/2022 documented as of this encounter Care Teams Loan Underwriter Relationship Specialty Start Date End Date Name, MD Isaías [address] [place] [address] PCP - General Family Medicine 03/09/18 documented as of this encounter
--- OUTSIDE RECORDS SUMMARY | 2024-07-20 16:48 | XMS_ITS | Encounter Summary ---
Author Organization [employer] Address [address] [facility] [address] [place] [address] Care Team Providers Care Outside Maintenance Worker Name Role Phone Name, Isaías CALVERT Primary Care Provider [phone] Reason for Visit * Reason Comments sick onsite Encounter Details Date Type Department Care Team ([facility] st Contact Info) Description 07/20/2024 3:30 PM EDT Office Visit [facility] MEDICINE [address] [place], [place] [phone] Karie Geronimo NP [address] [place], [place] [phone] Shivering (Primary Dx) Social History Tobacco Use Types Packs/Day Years [...] Mass Index 39.43 07/20/2024 3:56 PM EDT documented in this encounter Functional Status * Over the past 2 weeks, how often have you been bothered by any of the following problems? Question Answer Date of Assessment Author Patient Health Questionnaire -2 Score 0 07/20/2024 4:11 PM EDT Jose Maria Li MA * Little interest or pleasure in doing things Answer Date of Assessment Author Not at all 07/20/2024 4:11 PM EDT Jose Maria Li MA * Feeling down, depressed, or hopeless Answer Date of Assessment Author Not at all 07/20/2024 4:11 PM EDT Jose Maria Li MA * Trouble falling or staying asleep, or sleeping too much Answer Date of Assessment Author More than half the days 07/20/2024 4:11 PM EDT Jose Maria Powers MA * Feeling tired or having little energy Answer Date of Assessment Author Several days 07/20/2024 4:11 PM EDT Jose Maria Li MA * Poor appetite or overeating Answer Date of Assessment Author Not at all 07/20/2024 4:11 PM EDT Jose Maria Li MA * Feeling bad about yourself - or that you are a failure or have let yourself or your family down Answer Date of Assessment Author Not at all 07/20/2024 4:11 PM EDT Jose Maria Li MA * Trouble concentrating on things, such as reading the newspaper or watching television Answer Date of Assessment Author Not at all 07/20/2024 4:11 PM EDT Jose Maria Li MA * Moving or speaking so slowly that other people could have noticed? Or the opposite - being so fidgety or restless that you have been moving around a lot more than usual. Answer Date of Assessment Author Not at all 07/20/2024 4:11 PM DAVET Jose Maria Li MA * Thoughts that you would be better off or hurting yourself in some way Answer Date of Assessment Author Not at all 07/20/2024 4:11 PM DAVET Jose Maria Li MA * Patient Health Questionnaire-9 Score Answer Date of Assessment Author 3 07/20/2024 4:11 PM EDT Jose Maria Li MA * How difficult have these problems made it for you to do your work, take care of things at home, or get along with other people? Answer Date of Assessment Author Not difficult at all 07/20/2024 4:11 PM EDT Jose Maria Peace MA * Over the last 2 weeks, how often have you been bothered by any of the following problems? Question Answer Date of Assessment Author Feeling nervous, anxious, or on edge 1 07/20/2024 4:12 PM EDT Jose Maria Li MA Not being able to stop or co ntrol worrying 0 07/20/2024 4:12 PM EDT Jose Maria Li MA Worrying too much about diff erent things 0 07/20/2024 4:12 PM EDT Jose Maria Li MA Trouble relaxing 1 07/20/2024 4:12 PM EDT Jose Maria Powers MA Being so restless that it is hard to sit still 1 07/20/2024 4:12 PM EDT Jose Maria Li MA Becoming easily annoyed or irritable 0 07/20/2024 4:12 PM EDT Jose Maria Li MA Feeling afraid as if somethi ng awful might happen 0 07/20/2024 4:12 PM EDT Jose Maria Li MA NAYE-7 Total Score 3 07/20/2024 4:12 PM EDT Jose Maria Li MA documented as of this encounter Plan of Treatment Upcoming Encounters Date Type Department Care Team (Late st Contact Info) Description 09/27/2024 11:00 AM EDT Office Visit [facility] MEDICINE [address] [place] [address] Scheduled Orders Name Type Priority Associated Diagnoses Orde r Schedule TSH W/Reflex to FT4 Lab Routine Shivering Expected: 07/20/2024 (Approximate), Expires: 07/20/2025 documented as of this encounter Goals Goal Patient Goal Type Associated Problems Recent Progress Patient-Stated? Author Help patient manage chronic opioid therapy Care Plan Patient in chronic opioid therapy No Peggy Manzano, RN Improve Sleep Habits Care Plan Patient in chronic opioid therapy No Peggy Manzano, RN documented as of this encounter Visit Diagnoses Diagnosis Shivering- Primary Chills (without fever) documented in this encounter Additional Health Concerns Active Problems Noted Date Diagnosed Date Patient in chronic opioid therapy 05/29/2022 Assessment Noted Time PHQ-9 Depression Total Score: 3 07/21/19 25 4:11 PM EDT documented as of this encounter Care Teams Outside Maintenance Worker Relationship Specialty Start Date End Date Name, MD Isaías [address] [place] [address] PCP - General Family Medicine 03/09/18 documented as of this encounter
--- OUTSIDE RECORDS SUMMARY | 2024-07-20 16:48 | XMS_ITS | Encounter Summary ---
Author Organization [employer] Address [address] [facility] 7[address] [place] [address] Care Team Providers Care Separator Operator [employer]ats Name Role Phone Name, Isaías CALVERT Primary Care Provider [phone] Reason for Visit * Reason Onset Date Comments Med Refill 03/23/2024 Encounter Details Date Type Department Care Team (Late st Contact Info) Description 03/23/2024 Refill [facility] MEDICINE [address] [place], [place] [phone] Name, MD Isaías [address] [place] [address] Social History Tobacco Use Types Packs/Day Years [...] Description 09/27/2024 11:00 AM EDT Office Visit [facility] MEDICINE [address] [place] [address] documented as of this encounter Goals Goal [...] documented as of this encounter Care Teams Separator Operator [employer]ats Relationship Specialty Start Date End Date Name, MD Isaías [address] [place] [address] PCP - General Family Medicine 03/09/18 documented as of this encounter
--- OUTSIDE RECORDS SUMMARY | 2024-07-20 16:48 | XMS_ITS | Encounter Summary ---
Author Organization [employer] Address [address] [facility] [address] [place] [address] Care Team Providers Care Student Officer Name Role Phone Name, Isaías CALVERT Primary Care Provider [phone] Reason for Visit * Reason Comments Med Change Request Encounter Details Date Type Department Care Team ([facility] st Contact Info) Description 02/11/[address] [facility] MEDICINE [address] [place], [place] [phone] Name, MD Isaías [address] [place] [address] Social History Tobacco Use Types Packs/Day Years [...] Description 09/27/2024 11:00 AM EDT Office Visit [facility] MEDICINE [address] [place] [address] documented as of this encounter Goals Goal [...] documented as of this encounter Care Teams Student Officer Relationship Specialty Start Date End Date Name, MD Isaías [address] [place] [address] PCP - General Family Medicine 03/09/18 documented as of this encounter
--- OUTSIDE RECORDS SUMMARY | 2024-07-20 16:48 | XMS_ITS | Encounter Summary ---
Author Organization [employer] Address [address] [facility] [address] [place] [address] Care Team Providers Care Interactive Project Manager Name Role Phone Name, Isaías CALVERT Primary Care Provider [phone] Reason for Visit * Reason Onset Date Comments Med Change Request Prior Authorization 06/09/2023 Zepbound/Tir zepatide Encounter Details Date Type Department Care Team ([facility] st Contact Info) Description 06/09/2023 Refill [facility] MEDICINE [address] [place], [place] [phone] Name, MD Isaías [address] [place] [address] Social History Tobacco Use Types Packs/Day Years [...] AM EDT documented as of this encounter Functional Status * Over the past 2 weeks, how often have you been bothered by any of the following problems? Question Answer Date of Assessment Author Patient Health Questionnaire-2 Score 0 04/2023 1:30 PM EDT Reyna Burleson * Over the past 2 weeks, how often have you been bothered by any of the following problems? Question Answer Date of Assessment Author Little interest or pleasure in doing things Not at all 06/09/2023 1:30 PM EDT Maribell Burleson Feeling down, depressed, or hopeless Not at all 06/09/2023 1:30 PM EDT Maribell Burleson Trouble falling or staying asleep, or sleeping too much Not at all 06/09/2023 1:30 PM EDT Reyna Landers Feeling tired or having katie le energy Not at all 06/09/2023 1:30 PM EDT Maribell Burleson Poor appetite or overeating Not at all 06/09/2023 1: 30 PM EDT Reyna Burleson Feeling bad about yourself - or that you are a failure or have let yourself or your family down Not at all 06/09/2023 1:30 PM EDT Reyna Martínez Trouble concentrating on thi ngs, such as reading the newspaper or watching television Not at all 06/09/2023 1:30 PM EDT Maribell Burleson Moving or speaking so slowly that other people could have noticed? Or the opposite - being so fidgety or restless that you have been moving around a lot more than usual. Not at all 06/09/2023 1:30 PM EDT Maribell Burleson Thoughts that you would be better off or hurting yourself in some way Not at all 06/09/2023 1:30 PM EDT Darinel Burleson Patient Health Questionnaire -9 Score 0 06/09/2023 1:30 PM EDT Maribell Burleson documented as of this encounter Miscellaneous Notes [...] 09/27/2024 11:00 AM EDT Office Visit [facility] MEDICINE [address] [place] [address] documented as of this encounter Goals Goal [...] documented as of this encounter Care Teams Interactive Project Manager Relationship Specialty Start Date End Date Name, MD Isaías [address] [place] [address] PCP - General Family Medicine 03/09/18 documented as of this encounter
--- OUTSIDE RECORDS SUMMARY | 2024-07-20 16:48 | XMS_ITS | Encounter Summary ---
Author Organization [employer] Address [address] [facility] 7t [place] [address] Care Team Providers Care Nurses Superintendent Name Role Phone Name, Isaías CALVERT Primary Care Provider [phone] Reason for Visit * Reason Onset Date Comments Med Refill 05/26/2023 Encounter Details Date Type Department Care Team (Late st Contact Info) Description 05/26/[address] [facility] MEDICINE [address] [place] [address] Name, MD Isaías [address] [place] [address] Chronic low back pain, unspecified back pain [...] [facility] MEDICINE [address] [place] [address] documented as of this encounter Goals Goal [...] documented as of this encounter Care Teams Nurses Superintendent Relationship Specialty Start Date End Date Name, MD Isíaas [address] [place] [address] PCP - General Family Medicine 03/09/18 documented as of this encounter
--- OUTSIDE RECORDS SUMMARY | 2024-07-20 16:48 | XMS_ITS | Encounter Summary ---
Author Organization [employer] Address [address] [facility] [address] [place] [address] Care Team Providers Care Blood Donor Recruiter Supervisor Name Role Phone Name, Isaías CALVERT Primary Care Provider [phone] Encounter Details Date Type Department Care Team (Latest Contact Info) Description 07/20/2024 Travel Social History Tobacco Use Types Packs/Day [...] PM DAVET Jose Maria Li MA * Trouble concentrating [...] PM EDT Jose Maria Li MA * Thoughts that you would be better off or hurting yourself in some way Answer Date of Assessment Author Not at all 07/20/2024 4:11 PM EDT Jose Maria Li MA * Patient Health [...] annoyed or irritable 0 07/20/2024 4:12 PM DAVET Jose Maria Li MA Feeling afraid as if somethi ng awful might happen 0 07/20/2024 4:12 PM DAVET Jose Maria Li MA NAYE-7 Total Score 3 07/20/2024 4:12 PM DAVET Jose Maria Li MA documented as of this encounter Plan of Treatment Upcoming Encounters Date Type Department Care Team (Late st Contact Info) Description 09/27/2024 11:00 AM EDT Office Visit [facility] MEDICINE [address] [place] [address] documented as of this encounter Goals Goal [...] documented as of this encounter Care Teams Blood Donor Recruiter Supervisor Relationship Specialty Start Date End Date Name, MD Isaías [address] [place] [address] PCP - General Family Medicine 03/09/18 documented as of this encounter
--- OUTSIDE RECORDS SUMMARY | 2024-07-20 16:48 | XMS_ITS | Clinical Summary ---
Author Organization [facility] Address [address] [place] [address] Phone Care Team Providers Care Administrative Professional Name Role Phone Name, Isaías CALVERT Primary Care Provider [phone] Allergies Active Allergy Reactions Criticality Noted Date Comments Penicillin Rash Medium 03/01/2024 Medications cetirizine (ZyrTEC) 10 mg tablet Take 1 tablet (10 mg total) by mouth 1 (one) time each day for 10 days. 10 each 03/01/2024 Active Active Problems No known active problems Encounters Date Type Department Care Team Description 07/18/2024 9:55 PM EDT - 07/19/2024 12:52 AM EDT Emergency [facility] Emergency [address] [place] [address] Dizziness (Primary Dx) Discharge Disposition: Home or Self [...] Sign Reading Time Taken Comments Blood Pressure 148/81 07/19/2024 12:20 AM EDT Pulse 69 07/19/2024 12:20 AM EDT Temperature 37 ??C (98.6 ??F) 07/18/2024 7:12 PM EDT Respiratory Rate 16 07/18/2024 7:12 PM EDT Oxygen Saturation 100% 07/18/2024 7:12 PM EDT Inhaled Oxygen Concentration - - Weight 113 kg (250 lb) 07/18/2024 7:12 PM EDT Height 160 cm (5' 3 ) 07/18/2024 7:12 PM EDT Body Mass Index 44.29 07/18/2024 7:12 PM EDT Plan of Treatment Health Maintenance Due Date Last Done Comments Breast Cancer Screening 1982 Hepatitis B Vaccines (1 of 3 - 19+ 3-dose series) 2001 Cervical Cancer Screening: Pap Smear 2003 HIV Screening 02/09/2022 Hepatitis C Screening 02/09/2022 Social Influencers of Health Screening 02/09/2022 Depression Screening 06/08/2024 06/09/2023 Cholesterol Screening (Lipid Panel) 05/23/2029 05/23/2024, 08/20/2021 DTaP,Tdap,and Td Vaccines (3 - Td [...] on patient's age to complete this topic Procedures Procedure Name Priority Date/Time Associated Diagnosis Comments XR CHEST 2 VIEWS STAT 07/18/2024 11:4 3 PM EDT RESPIRATORY VIRUS PANEL MOLECULAR STUDY STAT 07/18/2024 11:04 PM EDT CBC WITH AUTO DIFFERENTIAL STAT 07/18/2024 7:23 PM EDT TROPONIN I HIGH SENSITIVITY STAT 07/18/2024 7:23 PM EDT MAGNESIUM STAT 07/18/2024 7:23 PM EDT BASIC METABOLIC PANEL STAT 07/18/2024 7:23 PM EDT CBC AND DIFFERENTIAL STAT 07/18/2024 7:23 PM EDT ECG 12-LEAD STAT 07/18/2024 7:19 PM EDT from Last 3 Months Results * XR Chest 2 Views (07/18/2024 11:43 PM EDT) Anatomical Region Laterality Modality Body Radiographic Melony ging 07/19/2024 8:50 AM EDT Impressions 07/19/2024 8:50 AM EDT Impression: 1. Stable mild cardiomegaly. 2. No active pulmonary process. Telerad PA ([id number]) -------- FINAL REPORT -------- Dictated By: Marci Greenberg Dictated Date: 07/19/2024 08:50 ET Assigned Physician: Marci Greenberg Reviewed and Electronically Signed By: Marci Greenberg Signed Date: 07/19/2024 08:50 ET Workstation ID: [id number] Transcribed By: Self Edit Transcribed Date: 07/19/2024 08:50 ET Narrative 07/19/2024 8:50 AM EDT History: Chest pain. Comparison: 04/24/19 Findings: PA and lateral views. This is a poor inspiration. The cardiac silhouette remains mildly enlarged. Hilar contours and pulmonary vascularity are within normal limits. Lungs are clear. The costophrenic angles are sharp. The regional skeleton is intact. Multiple surgical clips are seen in the epigastric region. Procedure Note Marci Greenberg MD - 07/19/2024 History: Chest pain. Comparison: 04/24/19 Findings: PA and lateral views. This is a poor inspiration. The cardiac silhouetteremains mildly enlarged. Hilar contours and pulmonary vascularity arewithin normal limits. Lungs are clear. The costophrenic angles aresharp. The regional skeleton is intact. Multiple surgical clips are seen in the epigastric region. IMPRESSION: Impression: 1. Stable mild cardiomegaly. 2. No active pulmonary process. Telerad PA ([id number]) -------- FINAL REPORT -------- Dictated By: Marci Greenberg Dictated Date: 07/19/2024 08:50 ET Assigned Physician: Marci Greenberg Reviewed and Electronically Signed By: Marci Greenberg Signed Date: 07/19/2024 08:50 ET Workstation ID: [id number] Transcribed By: Self Edit Transcribed Date: 07/19/2024 08:50 ET us Lenin Gutiérrez MD IMG XR PROCEDURES Final Res ult * Respiratory virus panel molecular study (07/18/2024 11:04 PM EDT) Pathologist [facility] Adenovirus Detection by PCR Not Detected Not Detected LAB MICROBIOLOGY METHOD 07/19/2024 12:07 AM EDT [facility] Influenza A PCR Not Detected Not Detected LAB MICROBIOLOGY METHOD 07/19/2024 12:07 AM EDT [facility] Influenza B PCR Not Detected Not Detected LAB MICROBIOLOGY METHOD 07/19/2024 12:07 AM EDT [facility] Coronavirus 229E Not Detected Not Detected LAB MICROBIOLOGY METHOD 07/19/2024 12:07 AM EDT [facility] Coronavirus HKU1 Not Detected Not Detected LAB MICROBIOLOGY METHOD 07/19/2024 12:07 AM EDT [facility] Coronavirus OC43 Not Detected Not Detected LAB MICROBIOLOGY METHOD 07/19/2024 12:07 AM EDT [facility] Coronavirus NL63 Not Detected Not Detected LAB MICROBIOLOGY METHOD 07/19/2024 12:07 AM EDT [facility] Parainfluenza Virus 1 Not Detected Not Detected LAB MICROBIOLOGY METHOD 07/19/2024 12:07 AM EDT [facility] Parainfluenza Virus 2 Not Detected Not Detected LAB MICROBIOLOGY METHOD 07/19/2024 12:07 AM EDT [facility] Parainfluenza Virus 3 Not Detected Not Detected LAB MICROBIOLOGY METHOD 07/19/2024 12:07 AM EDT [facility] Parainfluenza Virus 4 Not Detected Not Detected LAB MICROBIOLOGY METHOD 07/19/2024 12:07 AM EDT [facility] RSV PCR Not Detected Not Detected LAB MICROBIOLOGY METHOD 07/19/2024 12:07 AM EDT [facility] Human Metapneumovirus A and B Not Detected Not Detected LAB MICROBIOLOGY METHOD 07/19/2024 12:07 AM EDT [facility] Rhinovirus/Entero virus Not Detected Not Detected LAB MICROBIOLOGY METHOD 07/19/2024 12:07 AM EDT [facility] Bordetella pertussis Not Detected Not Detected LAB MICROBIOLOGY METHOD 07/19/2024 12:07 AM EDT [facility] Bordetella parapertussis Not Detected Not Detected LAB MICROBIOLOGY METHOD 07/19/2024 12:07 AM EDT [facility] Mycoplasma pneumo by PCR Not Detected Not Detected LAB MICROBIOLOGY METHOD 07/19/2024 12:07 AM EDT [facility] Chlamydia pneumoniae Not Detected Not Detected LAB MICROBIOLOGY METHOD 07/19/2024 12:07 AM EDT [facility] SARS COV-2 Not Detected Not Detected LAB MICROBIOLOGY METHOD 07/19/2024 12:07 AM EDT [facility] Swab Nasopharyngeal structure / Unknown Non-blood Collection / Unknown 07/18/2024 11:04 PM EDT 07/18/2024 11:07 PM EDT [facility] - 07/19/2024 12:07 AM EDT Testing was performed using the [employer] Respiratory Pathogen PCR Assay. All results must be correlated with the clinical findings. Results should not be used as the sole basis for diagnosis. False Negative results may occur from the presence of sequence variants in the region targeted by the assay or the presence of inhibitors. Results may be affected by concurrent antiviral/antimicrobial therapy or levels of organisms that are below the limit of detection. Lenin Gutiérrez MD LAB MICROBIOLOGY - GENERAL ORDERABLES Final Result [facility] [address] [place] [address], * Troponin I high sensitivity (07/18/2024 7:23 PM EDT) High Sensitivity Troponin I 4 <=54 ng/L LAB CHEMISTRY METHOD 07/18/2024 8:46 PM EDT [facility] Blood Venous blood specimen / Unknown Venipuncture / Unknown 07/18/2024 7:23 PM EDT 07/18/2024 8:06 PM EDT Narrative [facility] - 07/18/2024 8:46 PM EDT High levels of biotin in samples may falsely decrease hsTroponin values. ??Use caution when interpreting hsTroponin results in patients taking biotin who exhibit renal impairment (eGFR <60) or in patients taking more than 20 mg/day of biotin. us Lenin Gutiérrez MD LAB BLOOD ORDERABLES Final Result [facility] [address] [place] [address], * (ABNORMAL) CBC auto differential (07/18/2024 7:23 PM EDT) WBC 8.6 4.8 - 10.8 K/mcL LAB HEMETOLOGY METHOD 07/18/2024 8:21 PM EDT [facility] RBC 4.90(H) 3.80 - 4.80 M/mcL LAB HEMETOLOGY METHOD 07/18/2024 8:21 PM EDT [facility] Hemoglobin 11.9 11.5 - 16.0 g/dL LAB HEMETOLOGY METHOD 07/18/2024 8:21 PM EDT [facility] Hematocrit 39.8 35.0 - 47.0 % LAB HEMETOLOGY METHOD 07/18/2024 8:21 PM EDT [facility] MCV 82.1 79.0 - 98.0 FL LAB HEMETOLOGY METHOD 07/18/2024 8:21 PM EDT [facility] MCH 24.5(L) 27.0 - 32.0 pcg LAB HEMETOLOGY METHOD 07/18/2024 8:[facility] MCHC 29.9(L) 32.0 - 37.0 g/dL LAB HEMETOLOGY METHOD 07/18/2024 8:21 PM [facility] RDW 17.6(H) 11.0 - 15.0 % LAB HEMETOLOGY METHOD 07/18/2024 8:21 PM [facility] Platelets 309 130 - 400 K/mcL LAB HEMETOLOGY METHOD 07/18/2024 8:21 PM [facility] MPV 12.2(H) 7.0 - 11.0 FL LAB HEMETOLOGY METHOD 07/18/2024 8:21 PM [facility] NRBC 0.0 <1.0 % LAB HEMETOLOGY METHOD 07/18/2024 8:21 PM [facility] NRBC Absolute 0.00 <0.10 K/mcL LAB HEMETOLOGY METHOD 07/18/2024 8:21 PM [facility] Neutrophils Relative 71.4 % LAB HEMETOLOGY METHOD 07/18/2024 8:21 PM [facility] Lymphocytes Relative 20.1 % LAB HEMETOLOGY METHOD 07/18/2024 8:21 PM [facility] Monocytes Relative 6.4 % LAB HEMETOLOGY METHOD 07/18/2024 8:21 PM [facility] Eosinophils Relative 1.0 % LAB HEMETOLOGY METHOD 07/18/2024 8:21 PM [facility] Basophils Relative 0.8 % LAB HEMETOLOGY METHOD 07/18/2024 8:21 PM [facility] Immature Granulocytes Relative 0.3 % LAB HEMETOLOGY METHOD 07/18/2024 8:21 PM [facility] Neutrophils Absolute 6.15 1.50 - 7.00 K/mcL LAB HEMETOLOGY METHOD 07/18/2024 8:21 PM [facility] Lymphocytes Absolute 1.73 1.00 - 5.00 K/mcL LAB HEMETOLOGY METHOD 07/18/2024 8:21 PM [facility] Monocytes Absolute 0.55 0.20 - 1.00 K/mcL LAB HEMETOLOGY METHOD 07/18/2024 8:21 PM EDT [facility] Eosinophils Absolute 0.09 0.00 - 0.50 K/[facility] LAB HEMETOLOGY METHOD 07/18/2024 8:21 PM EDT [facility] Basophils Absolute 0.07 0.00 - 0.20 K/[facility] LAB HEMETOLOGY METHOD 07/18/2024 8:21 PM EDT [facility] Immature Granulocytes Absolute 0.03 0.00 - 0.03 K/[facility] LAB HEMETOLOGY METHOD 07/18/2024 8:21 PM EDT [facility] Blood Venous blood specimen / Unknown Venipuncture / Unknown 07/18/2024 7:23 PM EDT 07/18/2024 8:06 PM EDT Lenin Gutiérrez MD LAB BLOOD ORDERABLES Final Result Performing Organization Address City/[facility]/ZIP Co de Phone Number [facility] [address] [place] [address], [place] [phone] * Magnesium (07/18/2024 7:23 PM EDT) Pathologist [facility] Magnesium 2.0 1.9 - 2.6 mg/dL LAB CHEMISTRY METHOD 07/18/2024 8:29 PM EDT [facility] Blood Venous blood specimen / Unknown Venipuncture / Unknown 07/18/2024 7:23 PM EDT 07/18/2024 8:06 PM EDT Lenin Gutiérrez MD LAB BLOOD ORDERABLES Final Result [facility] [address] [place] [address], [place] [phone] * (ABNORMAL) Basic metabolic panel (07/18/2024 7:23 PM EDT) Sodium 138 133 - 145 mmol/L LAB CHEMISTRY METHOD 07/18/2024 8:29 PM [facility] Potassium 4.2 3.5 - 5.5 mmol/L LAB CHEMISTRY METHOD 07/18/2024 8:29 PM [facility] Chloride 106 96 - 110 mmol/L LAB CHEMISTRY METHOD 07/18/2024 8:29 PM [facility] CO2 25 21 - 32 mmol/L LAB CHEMISTRY METHOD 07/18/2024 8:29 PM [facility] Anion Gap 7 3 - 11 LAB CHEMISTRY METHOD 07/18/2024 8:29 PM [facility] Glucose 123(H) 70 - 100 mg/dL LAB CHEMISTRY METHOD 07/18/2024 8:29 PM [facility] BUN 11 5 - 25 mg/dL LAB CHEMISTRY METHOD 07/18/2024 8:29 PM [facility] Creatinine 0.68 0.50 - 1.10 mg/dL LAB CHEMISTRY METHOD 07/18/2024 8:29 PM [facility] eGFR 112 >=60 mL/min/1. 73m2 LAB CHEMISTRY METHOD 07/18/2024 8:29 PM [facility] Comment:Calculation based on the Chronic Kidney Disease Epidemiology Collaboration (CKD-EPI) equation refit without adjustment for race. BUN/Creatinine Ratio 16.2 LAB CHEMISTRY METHOD 07/18/2024 8:29 PM [facility] Calcium 9.2 8.5 - 10.5 mg/dL LAB CHEMISTRY METHOD 07/18/2024 8:29 PM [facility] Blood Venous blood specimen / Unknown Venipuncture / Unknown 07/18/2024 7:23 PM EDT 07/18/2024 8:06 PM EDT us Lenin Gutiérrez MD LAB BLOOD ORDERABLES Final Result [facility] [address] [place] [address], * ECG 12 lead (07/18/2024 7:19 PM EDT) Ventricular Rate ECG 80 BPM GEMUSE Atrial Rate 80 BPM GEMUSE P-R Interval 150 ms GEMUSE QRS Duration 74 ms GEMUSE Q-T Interval 382 ms GEMUSE QTc 440 ms GEMUSE P Wave [place] 43 degrees GEMUSE R [place] 12 degrees GEMUSE T [place] 11 degrees GEMUSE ECG Interpretation Normal sinus rhythm Normal ECG When compared with ECG of 09-OCT-2020 08:53, Vent. rate has increased BY ??26 BPM Confirmed by Wu BUITRAGO JOHN ([id number]) on 07/18/2024 8:02:17 PM GEMUSE 07/18/2024 7:19 PM EDT 07/18/2024 8:02 PM EDT us Lenin Gutiérrez MD ECG ORDERABLES Final Resul t GEMUSE from Last 3 Months Insurance MEDICAID - [place] Care Teams Administrative Professional Relationship Specialty Start Date End Date Name, MD Isaías [address] [place], [place] PCP - General Internal Medicine 02/11/17
--- OUTSIDE RECORDS SUMMARY | 2024-07-20 16:48 | XMS_ITS | Encounter Summary ---
Author Organization [employer] Address [address] [facility] [address] [place] [address] Care Team Providers Care Professor Of Biological Sciences Name Role Phone Name, Isaías CALVERT Primary Care Provider [phone] Reason for Visit * Reason Onset Date Comments Med Refill 05/25/2024 Encounter Details Date Type Department Care Team (Late st Contact Info) Description 05/25/2024 Refill [facility] [address] [place] [address] Name, MD Isaías [address] [place] [address] Chronic low back pain, unspecified back pain [...] Description 09/27/2024 11:00 AM EDT Office Visit [facility] [address] [place] [address] documented as of this encounter Goals Goal [...] documented as of this encounter Care Teams Professor Of Biological Sciences Relationship Specialty Start Date End Date Name, MD Isaías [address] [place] [address] PCP - General Family Medicine 03/09/18 documented as of this encounter
--- OUTSIDE RECORDS SUMMARY | 2024-07-20 16:48 | XMS_ITS | Encounter Summary ---
Author Organization [employer] Address [address] [facility] [address] [place] [address] Care Team Providers Care Net Washer Name Role Phone Name, Isaías CALVERT Primary Care Provider [phone] Reason for Visit * Reason Onset Date Comments Appointment Request 05/31/2024 Encounter Details Date Type Department Care Team ([facility] Contact Info) Description 05/31/2024 Telephone [facility] [address] [place] [address] Name, MD Isaías [address] [place] [address] Appointment Request Social History Tobacco Use Types Packs/Day Years [...] encounter Miscellaneous Notes * Telephone Encounter - Jerman Valencia - 05/31/2024 2:27 PM EDT Tc from pt requesting to R/s Appt from 05/31/24. Contact pt at [phone] documented in this encounter Plan of Treatment Upcoming Encounters Date Type Department Care Team (Late st Contact Info) Description 09/27/2024 11:00 AM EDT Office Visit [facility] [address] [place] [address] documented as of this encounter Goals Goal [...] documented as of this encounter Care Teams Net Washer Relationship Specialty Start Date End Date Name, MD Isaías [address] [place] [address] PCP - General Family Medicine 03/09/18 documented as of this encounter
--- OUTSIDE RECORDS SUMMARY | 2024-07-20 16:48 | XMS_ITS ---
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 White, Mar [...]
--- OUTSIDE RECORDS SUMMARY | 2024-07-20 16:48 | XMS_ITS | Encounter Summary ---
Author Organization [employer] Address [address] [facility] [address] [address] Care Team Providers Care Sleeve Bottom Feller Name Role Phone Name, Isaías CALVERT Primary Care Provider [phone] Reason for Visit * Reason Onset Date Comments Nurse Triage 07/19/2024 Encounter Details Date Type Department Care Team ([facility] st Contact Info) Description 07/19/2024 Telephone [facility] [address] [place], [place] [phone] Name, MD Isaías [address] [place] [address] Nurse Triage Social History Tobacco Use Types Packs/Day Years [...] encounter Miscellaneous Notes * Telephone Encounter - Radha Klein RN - 07/19/2024 10:00 AM EDT Emergency Room Name and Visit Date: [facility] ER 07/18/24 Discharge Dx: Dizziness and giddiness Discharge Medications: Meclizine Follow up Instructions: PCP follow up PRN Notes in chart: Yes under encounters No spanish interpreter needed as 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 Call returned to Marina Shepherd to triage below. Reports having having chills that are then causing dizziness. Per pt happens every 2 hours. Per pt was not given any medications. Per pt dizziness only occurs with chills. Per pt only lasting approx. 1 minute. Then sx subside and return approx. 2 hours later. No CP, SOB or palpitations reported. Pt would like follow up appointment. Pt given first Sick on site with team provider. Reviewed home careadvise, ER precautions and reasons to call back. Protocol Used: Recent Medical Visit for Illness Follow-up Call (Adult) Protocol-Based Disposition: See in Office or Video Visit Today or Tomorrow Future Appointments Date Time Provider Department Center 07/20/2024 3:30 PM Karie Geronimo NP MEDICINE [facility] 09/27/2024 11:00 AM [facility] CHRONIC PAIN CLINIC MEDICINE [facility] Insurance verified as active per Real Time Eligibility in [facility]. Video visit offer not recorded Positive Triage Question: * Patient wants to be seen * All higher-acuity triage questions were negative Care Advice Discussed: * Continue Treatment * Reasons To Call Back - You become worse * Telephone Encounter - Skye Frey - 07/19/2024 9:33 AM EDT Patient calling to report ED visit on : Date: 07/18 Hospital: [facility] Seen for: Dizziness Symptomatic Yes (every two hours feels same symptoms) *if yes message should go to Triage Patient advised will forward to team nurse for follow up [phone] japanese documented in this encounter Plan of Treatment Upcoming Encounters Date Type Department Care Team (Late st Contact Info) Description 09/27/2024 11:00 AM EDT Office Visit [facility] MEDICINE [address] [place] [address] documented as of this encounter Goals Goal [...] documented as of this encounter Care Teams Sleeve Bottom Feller Relationship Specialty Start Date End Date Name, MD Isaías [address] [place] [address] PCP - General Family Medicine 03/09/18 documented as of this encounter
--- OUTSIDE RECORDS SUMMARY | 2024-07-20 16:48 | XMS_ITS | Encounter Summary ---
Author Organization [employer] Address [address] [facility] [address] [place] [address] Care Team Providers Care Director Of Security Name Role Phone Name, Isaías CALVERT Primary Care Provider [phone] Reason for Visit * Reason Comments Med Refill Encounter Details Date Type Department Care Team ([facility] st Contact Info) Description 06/10/2023 Refill [facility] [address] [place] [address] Name, MD Isaías [address] [place] [address] Vitamin D deficiency Social History Tobacco Use [...] Description 09/27/2024 11:00 AM EDT Office Visit [facility] [address] [place] [address] documented as of this encounter Goals Goal [...] as of this encounter Care Teams Director Of Security Relationship Specialty Start Date End Date Name, MD Isaías [address] [place] [address] PCP - General Family Medicine 03/09/18 documented as of this encounter
--- OUTSIDE RECORDS SUMMARY | 2024-07-20 16:48 | XMS_ITS | Encounter Summary ---
Author Organization [employer] Address [address] [facility] [address] [address] Care Team Providers Care Chief Engineer Drilling And Recovery Name Role Phone Name, Isaías CALVERT Primary Care Provider [phone] Reason for Visit * Reason Comments Med Refill Encounter Details Date Type Department Care Team ([facility] Contact Info) Description 09/24/2022 Refill [facility] [address] [place], [place] [phone] Name, MD Isaías [address] [place] [address] Chronic pain syndrome Social History Tobacco Use [...] Upcoming Encounters Date Type Department Care Team ([facility] Contact Info) Description 09/27/2024 11:00 AM EDT Office Visit [facility] [address] [place] [address] documented as of this encounter Goals Goal [...] documented as of this encounter Care Teams Chief Engineer Drilling And Recovery Relationship Specialty Start Date End Date Name, MD Isaías [address] [place] [address] PCP - General Family Medicine 03/09/18 documented as of this encounter
--- OUTSIDE RECORDS SUMMARY | 2024-07-20 16:48 | XMS_ITS | Encounter Summary ---
Author Organization [employer] Address [address] [facility] [address] [place] [address] Care Team Providers Care Oceanologist Name Role Phone Name, Isaías CALVERT Primary Care Provider [phone] Reason for Visit * Reason Onset Date Comments Med Refill 03/17/2024 Encounter Details Date Type Department Care Team (Late st Contact Info) Description 03/17/2024 Refill [facility] [address] [place], [place] [phone] Name, MD Isaías [address] [place] [address] Social History Tobacco Use Types Packs/Day Years [...] Description 09/27/2024 11:00 AM EDT Office Visit [facility] [address] [place] [address] documented as of this encounter Goals Goal [...] documented as of this encounter Care Teams Oceanologist Relationship Specialty Start Date End Date Name, MD Isaías [address] [place] [address] PCP - General Family Medicine 03/09/18 documented as of this encounter
--- OUTSIDE RECORDS SUMMARY | 2024-07-20 16:48 | XMS_ITS | Encounter Summary ---
Author Organization [employer] Address [address] [facility] [address] [place] [address] Care Team Providers Care Cyber Systems Engineer Name Role Phone Name, Isaías CALVERT Primary Care Provider [phone] Reason for Visit * Reason Onset Date Comments Med Refill 04/27/2024 Encounter Details Date Type Department Care Team (Late st Contact Info) Description 04/27/2024 Refill [facility] MEDICINE [address] [place] [address] Name, MD Isaías [address] [place] [address] Chronic low back pain, unspecified back pain [...] Description 09/27/2024 11:00 AM EDT Office Visit [facility] MEDICINE [address] [place] [address] documented as of this encounter Goals Goal Patient Goal Type Associated Problems Recent Progress Patient-Stated? Author Help patient manage chronic opioid therapy Care Plan Patient in chronic opioid therapy No Peggy Manzano, RN Improve Sleep Habits Care Plan Patient in chronic opioid therapy No Peggy Manazno, RN documented as of this encounter Visit Diagnoses Diagnosis Chronic low back pain, unspecified back pain laterality, unspecified whether sciatica present documented in this encounter Additional Health Concerns Active Problems Noted Date Diagnosed Date Patient in chronic opioid therapy 05/29/2022 Assessment Noted Time PHQ-9 Depression Total Score: 0 06/09/19 24 1:30 PM EDT documented as of this encounter Care Teams Cyber Systems Engineer Relationship Specialty Start Date End Date Name, MD Isaías [address] [place] [address] PCP - General Family Medicine 03/09/18 documented as of this encounter
--- OUTSIDE RECORDS SUMMARY | 2024-07-20 16:48 | XMS_ITS | Encounter Summary ---
Author Organization [employer] Address [address] [facility] [address] [place] [address] Care Team Providers Care Commercial Drone Software Developer Name Role Phone Name, Isaías CALVERT Primary Care Provider [phone] Reason for Visit * Reason Onset Date Comments Med Refill 09/24/2023 Encounter Details Date Type Department Care Team ([facility] st Contact Info) Description 09/24/2023 Telephone [facility] MEDICINE [address] [place] [address] Name, MD Isaías [address] [place] [address] Med Refill Social History Tobacco Use Types [...] 5 mg immediate release tablet filled at [facility], on 08/24 for qty - 56 for 28 days supply. Bromiums. Pending Sale To [facility] for approval. * Telephone Encounter - Fermín Faria - 09/24/2023 8:54 AM EDT TC from pt requesting medication refill. Medications needing refill : oxyCODONE (Roxicodone) 5 MG immediate release tablet To be sent to: [facility]/pharmacy #[id number] documented in this encounter Plan of Treatment Upcoming Encounters Date Type Department Care Team ([facility] Contact Info) Description 09/27/2024 11:00 AM EDT Office Visit [facility] MEDICINE [address] [place], [place] [phone] documented as of this encounter Goals Goal [...] documented as of this encounter Care Teams Commercial Drone Software Developer Relationship Specialty Start Date End Date Name, MD Isaías [address] [place] [address] PCP - General Family Medicine 03/09/18 documented as of this encounter
--- OUTSIDE RECORDS SUMMARY | 2024-07-20 16:48 | XMS_ITS | Encounter Summary ---
Author Organization [employer] Address [address] [facility] [address] [place] [address] Care Team Providers Care Monorail Charger Operator Name Role Phone Name, Isaías CALVERT Primary Care Provider [phone] Reason for Visit * Reason Onset Date Comments Med Refill 09/25/2022 Encounter Details Date Type Department Care Team ([facility] Contact Info) Description 09/25/2022 Refill [facility] MEDICINE [address] [place], [place] [phone] Name, MD Isaías [address] [place] [address] Chronic pain syndrome Social History Tobacco Use [...] Department Care Team (Late Contact Info) Description 09/27/2024 11:00 AM EDT Office Visit [facility] MED[facility] [address] [facility] [place] [address] documented as of this encounter Goals Goal [...] documented as of this encounter Care Teams Monorail Charger Operator Relationship Specialty Start Date End Date Name, MD Isaías [address] [place] [address] PCP - General Family Medicine 03/09/18 documented as of this encounter
--- OUTSIDE RECORDS SUMMARY | 2024-07-20 16:48 | XMS_ITS | Encounter Summary ---
Author Organization [employer] Address [address] [facility] [address] [place] [address] Care Team Providers Care Scuba Diving Teacher Name Role Phone Name, Isaías CALVERT Primary Care Provider [phone] Reason for Visit * Reason Onset Date Comments Med Refill 01/26/2024 Encounter Details Date Type Department Care Team (Late st Contact Info) Description 01/26/2024 Refill [facility] MEDICINE [address] [place], [place] [phone] Name, MD Isaías [address] [place] [address] Chronic low back pain, unspecified back pain [...] Description 09/27/2024 11:00 AM EDT Office Visit [facility] MEDICINE [address] [place] [address] documented as of this encounter Goals Goal [...] documented as of this encounter Care Teams Scuba Diving Teacher Relationship Specialty Start Date End Date Name, MD Isaías [address] [place] [address] PCP - General Family Medicine 03/09/18 documented as of this encounter
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
[2024-07-20 19:19] LABS: TSH reflex Free T4 1.09 uIU/mL (0.32-4.0)
== END 2024-07-20 16:46 | disposition home or self-care (01) ==
LOC: HO.HHCL 16:45
PROVIDERS: Visit Provider Nurse Practitioner
DX: R68.83 Chills (without fever) (principal)
CPT/HCPCS: 36415; 84443